=== PATIENT | male | born 1940 | race Caucasian/White ===

== ENCOUNTER 2016-05-23 14:25 | Inpatient (IN) | payer OTHER, MEDICARE ==
[~2016-05-23] VITALS: Ht 182.9 cm; Wt 81.7 kg
[~2016-05-23 14:25] MED LIST: LORT7.5T3 PO; OMEP20CA5 PO; OXYB5TAB33 PO; PRED20 PO; TRAZ150T2 PO
--- NOTE | 2016-05-23 14:49 | PD ---
HPI Chief Complaint: BA/Psych Time Seen by Provider: 14:46 Travel History International Travel<30 days: No Contact w/Intl Traveler<30days: No Traveled to known affect area: No History of Present Illness HPI 75-year-old male brought in by EMS having been found passed out by a local store with reports of excessive EtOH and smoking of marijuana possibly "laced with something". Patient has altered mental status but is alert and responsive in the ambulance home. He is known to be homeless. He has no known drug allergies. [facility] Past Medical History Medical History: Unable to Obtain Arthritis: Yes (RHEMATOID AND OSTEOPHOROSEIS) Cancer: No Diabetes: No Diminished Hearing: Yes ("PLUGGED TODAY") Glaucoma: No Hepatitis: No Hiatal Hernia: Yes Hypertension: Yes Thyroid Disease: No Past Surgical History Genitourinary Surgery: Yes (BILATERAL HERNIA REPAIR) Pacemaker: No Social History Alcohol Use: Yes Tobacco Use: Yes Substance Use: Yes Allergies-Medications (Allergen,Severity, Reaction): Coded Allergies: No Known Allergies (Verified , 06/24/08) Reported Meds & Prescriptions Reported Meds & Active Scripts Active Reported Ditropan (Oxybutynin Chloride) 5 Mg Tab 0 Mg PO DAILY UNKNOWN DOSE Deltasone (Prednisone) 20 Mg Tab 20 Mg PO DAILY Desyrel (Trazodone HCl) 150 Mg Tab 150 Mg PO HS Prilosec (Omeprazole) 20 Mg Capcr 20 Mg PO DAILY Lortab 7.5/500 (Acetaminophen/Hydrocodone Bitart) Tab 1 Tab PO Q6HPRN FOR PAIN Review of Systems ROS Limitations: Clinical Condition, Intoxication, Altered Mental Status General / Constitutional: No: Fever Eyes: No: Visual changes HENT: No: Headaches Cardiovascular: No: Chest Pain or Discomfort Respiratory: No: Shortness of Breath Gastrointestinal: No: Abdominal Pain Genitourinary: No: Dysuria Musculoskeletal: No: Pain Skin: No Rash Neurologic: No: Weakness Psychiatric: No: Depression Endocrine: No: Polydipsia Hematologic/Lymphatic: No: Easy Bruising Physical Exam Exam Limitations: Intoxication Narrative GENERAL: Patient is alert and appears in no acute distress. SKIN: Warm and dry. Normal color. Normal turgor. No signs of trauma or open wounds. HEAD: Atraumatic. Normocephalic. EYES: Pupils equal and round. No scleral icterus. No injection or drainage. ENT: No nasal bleeding or discharge. Mucous membranes pink and moist. Pharynx is clear. NECK: Trachea midline. Neck is supple and nontender. CARDIOVASCULAR: Regular rate and rhythm. No murmurs gallops or rubs appreciated. RESPIRATORY: No accessory muscle use. Clear to auscultation. Breath sounds equal bilaterally. MUSCULOSKELETAL: Extremities without clubbing, cyanosis, or edema. No obvious deformities. NEUROLOGICAL: Awake and alert. No obvious cranial nerve deficits. Motor grossly within normal limits. Five out of 5 muscle strength in the arms and legs. Normal speech. PSYCHIATRIC: Patient is to see intoxicated and impaired. He is cooperative. Data Data Orders Complete Blood Count With Diff (05/23/16 14:41) Comprehensive Metabolic Panel (05/23/16 14:41) Psych Screen (05/23/16 14:41) Drug Screen, Random Urine (05/23/16 14:41) Alcohol (Ethanol) (05/23/16 14:41) [facility] Medical Decision Making Medical Screen Exam Complete: Yes Emergency Medical Condition: Yes Medical Record Reviewed: Yes Differential Diagnosis Gamino act. EtOH intoxication. Polysubstance abuse. Narrative Course Patient is medically stable at time of exam. Psychiatric labs ordered including CBC, CMP, EtOH level, and urine drug screen. Patient is awaiting med bed placement and medical clearance for psychiatric evaluation. Condition: Stable Nacho Gautam May 23, 2016 14:49
[2016-05-23] MEDS ORDERED: PIPERACIL-TAZO 4.5 GM PREMIX 100 ML IV STA (15:31)
[2016-05-23] MEDS ORDERED: VANCOMYCIN INJ 1,000 MG in SODIUM CHLOR 0.9% 250 ML INJ 250 ML IV STA (15:31)
[2016-05-23 15:37] VITALS: TEMP 104.1
[2016-05-23] MEDS ORDERED: SODIUM CHLOR 0.9% 1000 ML INJ 400 ML IV ONE (15:41)
[2016-05-23] MEDS ORDERED: SODIUM CHLOR 0.9% 1000 ML INJ 1,000 ML IV ONE ×2 (15:41)
[2016-05-23 15:49] VITALS: BP 149/69; PULSE 97; RESP 21; TEMP 104.1; O2SAT 95
--- NOTE | 2016-05-23 15:49 | PD ---
HPI Chief Complaint: Altered Mental Status Time Seen by Provider: 15:25 Travel History International Travel<30 days: No Contact w/Intl Traveler<30days: No Traveled to known affect area: No History of Present Illness HPI Patient is a 75-year-old male with history of CAD with Laureen BRODY, who presents the emergency department for altered mental status. provides history. States that patient has become increasingly altered over the course the last 72 hours. notes that he has redness of the bilateral lower extremities around his toes, that become increasingly weepy. Over the last 24 hours patient's become increasingly altered and febrile at home. called EMS and patient refused transport, upon which time patient was Gamino acted. There has not been any report of suicidal ideation, homicidal ideation, delusions or hallucinations. [facility] Past Medical History Medical History: Unable to Obtain Arthritis: Yes (RHEMATOID AND OSTEOPHOROSEIS) Cancer: No Cardiovascular Problems: Yes (RI, AFIB, DEFIBULATOR) Diabetes: No Diminished Hearing: Yes ("PLUGGED TODAY") Glaucoma: No Hepatitis: No Hiatal Hernia: Yes Hypertension: Yes Thyroid Disease: No Past Surgical History Genitourinary Surgery: Yes (BILATERAL HERNIA REPAIR) Pacemaker: No Social History Alcohol Use: Yes Tobacco Use: Yes Substance Use: Yes Allergies-Medications (Allergen,Severity, Reaction): Coded Allergies: No Known Allergies (Verified , 05/23/16) Reported Meds & Prescriptions Reported Meds & Active Scripts Active Reported Ditropan (Oxybutynin Chloride) 5 Mg Tab 0 Mg PO DAILY UNKNOWN DOSE Deltasone (Prednisone) 20 Mg Tab 20 Mg PO DAILY Desyrel (Trazodone HCl) 150 Mg Tab 150 Mg PO HS Prilosec (Omeprazole) 20 Mg Capcr 20 Mg PO DAILY Lortab 7.5/500 (Acetaminophen/Hydrocodone Bitart) Tab 1 Tab PO Q6HPRN FOR PAIN Review of Systems ROS Limitations: Altered Mental Status, Poor Historian Physical Exam Exam Limitations: Altered Mental Status, Poor Historian Narrative GENERAL: Elderly male in no acute distress. Febrile to 104.1 SKIN: Warm. There is erythema of the left lower extremity radiating from the foot to the mid fernandez. Open wound on the medial aspect of the fenrandez. There is skin breakdown in between the toes bilaterally, most prominent on the right foot. HEAD: Atraumatic. Normocephalic. EYES: Pupils equal and round. 3 mm. No scleral icterus. No injection or drainage. ENT: No nasal bleeding or discharge. Mucous membranes dry NECK: Supple without rigidity CARDIOVASCULAR: Regular rate and irregular rhythm. No murmur appreciated. RESPIRATORY: No accessory muscle use. Clear to auscultation. Breath sounds equal bilaterally. GASTROINTESTINAL: Abdomen soft, non-tender, nondistended. Large ventral hernia MUSCULOSKELETAL: Edema of the left leg extending into the fernandez with associated erythema as above. NEUROLOGICAL: Awake and alert to self. Questionable small right nasal labial fold flattening. Right upper extremity weakness compared to left. Normal speech. PSYCHIATRIC: Deferred given altered mental status Data Data Last Documented VS Vital Signs Date Time Temp Pulse Resp B/P Pulse Ox O2 Delivery O2 Flow Rate FiO2 05/23/16 15:49 104.1 97 21 149/69 95 Nasal Cannula 2 Orders Electrocardiogram (05/23/16 15:31) Complete Blood Count With Diff (05/23/16 15:31) Comprehensive Metabolic Panel (05/23/16 15:31) Lactic Acid Sepsis Protocol (05/23/16 15:31) Lipase (05/23/16 15:31) Troponin I (05/23/16 15:31) Urinalysis - C+S If Indicated (05/23/16 15:31) Blood Culture (05/23/16 15:31) Wound Culture And Gram Stain (05/23/16 15:31) Chest, Single Ap (05/23/16 15:31) Ecg Monitoring (05/23/16 15:31) Iv Access Insert/Monitor (05/23/16 15:31) Oximetry (05/23/16 15:31) Piperacil-Tazo 4.5 Gm Premix (Zosyn 4.5 (05/23/16 15:31) Vancomycin Inj (Vancomycin Inj) (05/23/16 15:31) Ct Brain W/O Iv Contrast(Rout) (05/23/16 ) Sodium Chlor 0.9% 1000 Ml Inj (Ns 1000 M (05/23/16 15:41) Sodium Chlor 0.9% 1000 Ml Inj (Ns 1000 M (05/23/16 15:41) Sodium Chlor 0.9% 1000 Ml Inj (Ns 1000 M (05/23/16 15:41) Acetaminophen (Tylenol) (05/23/16 16:00) Consult Vascular Access Team (05/23/16 ) Vascular Poc Ultrasound (05/23/16 ) Labs Laboratory Tests Test 05/23/16 05/23/16 15:41 16:05 Urine Color YELLOW Urine Turbidity CLEAR Urine pH 5.5 Urine Specific [place] 1.024 Urine Protein 30 mg/dL Urine Glucose (UA) NEG mg/dL Urine Ketones 10 mg/dL Urine Occult Blood TRACE Urine Nitrite NEG Urine Bilirubin NEG Urine Urobilinogen LESS THAN 2.0 MG/DL Urine Leukocyte Esterase NEG Urine RBC 2 /hpf Urine WBC 1 /hpf Urine Sperm RARE Microscopic Urinalysis Comment CATH-CULT NOT IND Sodium Level 137 MEQ/L Potassium Level 4.8 MEQ/L Chloride Level 103 MEQ/L Carbon Dioxide Level 22.8 MEQ/L Anion Gap 11 MEQ/L Blood Urea Nitrogen 25 MG/DL Creatinine 1.00 MG/DL Estimat Glomerular Filtration 73 ML/MIN Rate Random Glucose 96 MG/DL Lactic Acid Level 1.6 mmol/L Calcium Level 8.5 MG/DL Aspartate Amino Transf 72 U/L (AST/SGOT) Albumin 2.7 GM/DL Lipase 42 U/L MDM Medical Decision Making Medical Screen Exam Complete: Yes Emergency Medical Condition: Yes Medical Record Reviewed: Yes Differential Diagnosis 75-year-old male here for altered mental status, erythema of the left greater than right lower extremity and fever. Differential includes cellulitis, bacteremia, UTI, pneumonia, sepsis, osteomyelitis, dehydration, elect to light abnormality, CVA, TIA. Narrative Course Patient brought in under a Gamino act, this is inappropriate. Patient is not psychotic. He is altered clearly from delirium from sepsis and this Gamino act was lifted. Patient placed on monitor, IV established and blood obtained. Given 30 mg/kg normal saline bolus, empirically treated with vancomycin and Zosyn and Tylenol. Twelve-lead EKG shows sinus rhythm with interventricular conduction delay but no ST abnormalities. CBC, CMP, lipase, troponin, lactate, urinalysis, wound cultures, blood cultures were obtained as well as chest x-ray and CT of the brain. Results of these studies remain pending at the time this dictation. Patient signed out to oncoming provider waiting results of same for ultimate admission. Critical Care Narrative Aggregate critical care time was 40 minutes. Time to perform other separately billable procedures was not included in the critical care time. My time did not include minutes spent treating any other patients simultaneously or on activities that did not directly contribute to the patient's treatment. The services I provided to this patient were to treat and/or prevent clinically significant deterioration that could result in: Cardiopulmonary decompensation, or disability I provided critical care services requiring my management, as noted below: Chart data review, documentation time, medication orders and management, vital sign assessments/reviewing monitor data, ordering and reviewing lab tests, ordering and interpreting/reviewing x-rays and diagnostic studies, care of the patient and discussion of the patient with the admitting physicians. Diagnosis Primary Impression: Sepsis Qualified Code: A41.9 - Sepsis, due to unspecified organism Additional Impressions: Cellulitis of left leg Fever Qualified Code: R50.9 - Fever, unspecified fever cause Delirium Admitting Information Admitting Physician Requests: Admit Condition: Stable Echo Murray MD May 23, 2016 15:49
[2016-05-23] MEDS ORDERED: ACETAMINOPHEN 500 MG CPLT PO ONE (16:00)
[2016-05-23 16:48] LABS: BLOOD, URINE TRACE (NEG); GLUCOSE,URINE NEG (NEG); KETONE, URINE 10 mg/dL (NEG); NITRITE,URINE NEG (NEG); PH, URINE 5.5 (5.0-8.5); URINE COLOR YELLOW (YELLW/STRAW)
[2016-05-23 16:49] LABS: COMMENT (UR) CATH-CULT NOT IND; CULTURE IF INDICATED CATH CULTURE NOT IND
--- NOTE | 2016-05-23 16:55 | RADRPT ---
EXAM DATE/TIME: 05/23/2016 15:42 [facility] COMPARISON: No previous studies available for comparison. INDICATIONS : Fever. MEDICAL HISTORY : Hypertension. Hiatal hernia. A-fib. SURGICAL HISTORY : Defibulator. ENCOUNTER: Initial ACUITY: 1 day PAIN SCORE: Non-responsive. LOCATION: Bilateral chest FINDINGS: Portable AP view of the chest demonstrates a normal-sized cardiac silhouette. Single lead left chest wall cardiac pacing device/AICD is present. There is interstitial prominence bilaterally of uncertain chronicity. No effusion, consolidation, or pneumothorax is identified. Bones and soft tissues demons trate no acute finding. CONCLUSION: Interstitial prominence bilaterally of uncertain chronicity. Otherwise, no acute finding is identifie d. Hira Denny MD on May 23, 2016 at 16:51 Board Certified Radiologist. This report was verified electronically.
[2016-05-23 16:56] LABS: ANION GAP 11 MEQ/L (5-15); AST (GOT) 72 U/L (15-37); BICARBONATE 22.8 MEQ/L (21.0-32.0); BLOOD UREA NITROGEN 25 MG/DL (7-18); CHLORIDE 103 MEQ/L (98-107); GLOMERULAR FILTRATION RATE 73 ML/MIN (>89); SODIUM (NA) 137 MEQ/L (136-145)
[2016-05-23 16:57] LABS: POTASSIUM 4.8 MEQ/L (3.5-5.1)
[2016-05-23 17:09] LABS: ALKALINE PHOSPHATASE 64 U/L (45-117); ALT (GPT) 22 U/L (12-78); TOTAL BILIRUBIN ADULT 0.5 MG/DL (0.2-1.0)
--- NOTE | 2016-05-23 17:20 | RADRPT ---
EXAM DATE/TIME: 05/23/2016 16:47 [facility] COMPARISON: No previous studies available for comparison. INDICATIONS : Altered mental status. RADIATION DOSE: 44.52 CTDIvol (mGy) MEDICAL HISTORY : Cardiovascular disease. Hypertension. Lupus. SURGICAL HISTORY : None. ENCOUNTER: Initial ACUITY: 1 day PAIN SCALE: Non-responsive LOCATION: cranial TECHNIQUE: Multiple contiguous axial images were obtained of the head. Using automated exposure control and adj ustment of the mA and/or kV according to patient size, radiation dose was kept as low as reasonably a chievable to obtain optimal diagnostic quality images. FINDINGS: CEREBRUM: There is generalized atrophy. Ventricles are normal in size given the degree of atrophy present. Ther e is periventricular white matter low attenuation with a more focal area in the right frontal periven tricular white matter. No evidence of midline shift, mass lesion, hemorrhage or acute infarction. N o extra-axial fluid collections are seen. POSTERIOR FOSSA: The cerebellum and brainstem demonstrate no definite acute finding. There are 3 punctate areas of low density within the cricket. The 4th ventricle is midline. The cerebellopontine angle is unremarkable. EXTRACRANIAL: Visualized paranasal sinuses are clear. There is fluid in the right mastoid air cells and middle ear. SKULL: The calvaria is intact. No evidence of skull fracture. CONCLUSION: 1. No acute intracranial abnormality is identified. There is generalized cerebral atrophy. 2. The periventricular white matter low attenuation and low density in the cricket may represent chronic microvascular ischemic change. 3. There is fluid within the mastoid air cells. Hira Denny MD on May 23, 2016 at 17:16 Board Certified Radiologist. This report was verified electronically.
[2016-05-23 17:47] LABS: AUTOMATED NEUTROPHIL # 16.3 TH/MM3 (1.8-7.7); BASOPHIL # 0.1 TH/MM3 (0-0.2); BASOPHIL % 0.4 % (0.0-2.0); HEMATOCRIT 24.4 % (39.0-51.0); HEMO FLAGS DIFF FINAL; LYMPH % 1.8 % (9.0-44.0); LYMPHOCYTE # 0.3 TH/MM3 (1.0-4.8); MEAN CELL VOLUME 91.7 FL (80.0-100.0); MEAN CORPUSCULAR HEMOGLOBIN 30.4 PG (27.0-34.0); MEAN CORPUSCULAR HGB CONC 33.1 % (32.0-36.0); MONO % 6.4 % (0.0-8.0); NEUT % 91.4 % (16.0-70.0); PLATELET COUNT 249 TH/MM3 (150-450); RED BLOOD COUNT 2.66 MIL/MM3 (4.50-5.90); RED CELL DISTRIBUTION WIDTH 14.4 % (11.6-17.2); WHITE BLOOD COUNT 17.9 TH/MM3 (4.0-11.0)
[2016-05-23] MEDS ORDERED: MORPHINE SULFATE 4 MG/ML INJ IV PUSH ONE (18:00)
--- NOTE | 2016-05-23 18:00 | PD ---
Physical Exam Narrative The patient was initially evaluated by the previous provider and signed out to me at approximately 5:00 PM at the beginning of my shift pending labs, CT head, and disposition. See her note for further details. Data Data Last Documented VS Vital Signs Date Time Temp Pulse Resp B/P Pulse Ox O2 Delivery O2 Flow Rate FiO2 05/23/16 18:20 96 Room Air 05/23/16 15:49 2.00 05/23/16 15:49 104.1 97 21 149/69 Orders Electrocardiogram (05/23/16 15:31) Complete Blood Count With Diff (05/23/16 15:31) Comprehensive Metabolic Panel (05/23/16 15:31) Lactic Acid Sepsis Protocol (05/23/16 15:31) Lipase (05/23/16 15:31) Troponin I (05/23/16 15:31) Urinalysis - C+S If Indicated (05/23/16 15:31) Blood Culture (05/23/16 15:31) Wound Culture And Gram Stain (05/23/16 15:31) Chest, Single Ap (05/23/16 15:31) Ecg Monitoring (05/23/16 15:31) Iv Access Insert/Monitor (05/23/16 15:31) Oximetry (05/23/16 15:31) Piperacil-Tazo 4.5 Gm Premix (Zosyn 4.5 (05/23/16 15:31) Vancomycin Inj (Vancomycin Inj) (05/23/16 15:31) Ct Brain W/O Iv Contrast(Rout) (05/23/16 ) Sodium Chlor 0.9% 1000 Ml Inj (Ns 1000 M (05/23/16 15:41) Sodium Chlor 0.9% 1000 Ml Inj (Ns 1000 M (05/23/16 15:41) Sodium Chlor 0.9% 1000 Ml Inj (Ns 1000 M (05/23/16 15:41) Acetaminophen (Tylenol) (05/23/16 16:00) Consult Vascular Access Team (05/23/16 ) Vascular Poc Ultrasound (05/23/16 ) Morphine Inj (Morphine Inj) (05/23/16 18:00) Type And Screen (05/23/16 18:21) Admit Order (Ed Use Only) (05/23/16 18:21) Labs Laboratory Tests Test 05/23/16 05/23/16 05/23/16 15:41 16:05 17:15 Urine Color YELLOW Urine Turbidity CLEAR Urine pH 5.5 Urine Specific [place] 1.024 Urine Protein 30 mg/dL Urine Glucose (UA) NEG mg/dL Urine Ketones 10 mg/dL Urine Occult Blood TRACE Urine Nitrite NEG Urine Bilirubin NEG Urine Urobilinogen LESS THAN 2.0 MG/DL Urine Leukocyte Esterase NEG Urine RBC 2 /hpf Urine WBC 1 /hpf Urine Sperm RARE Microscopic Urinalysis Comment CATH-CULT NOT IND Sodium Level 137 MEQ/L Potassium Level 4.8 MEQ/L Chloride Level 103 MEQ/L Carbon Dioxide Level 22.8 MEQ/L Anion Gap 11 MEQ/L Blood Urea Nitrogen 25 MG/DL Creatinine 1.00 MG/DL Estimat Glomerular Filtration 73 ML/MIN Rate Random Glucose 96 MG/DL Lactic Acid Level 1.6 mmol/L Calcium Level 8.5 MG/DL Total Bilirubin 0.5 MG/DL Aspartate Amino Transf 72 U/L (AST/SGOT) Alanine Aminotransferase 22 U/L (ALT/SGPT) Alkaline Phosphatase 64 U/L Troponin I 0.05 NG/ML Total Protein 7.4 GM/DL Albumin 2.7 GM/DL Lipase 42 U/L Free Thyroxine 1.26 NG/DL Thyroid Stimulating Hormone 2.040 uIU/ML 3rd Gen White Blood Count 17.9 TH/MM3 Red Blood Count 2.66 MIL/MM3 Hemoglobin 8.1 GM/DL Hematocrit 24.4 % Mean Corpuscular Volume 91.7 FL Mean Corpuscular Hemoglobin 30.4 PG Mean Corpuscular Hemoglobin 33.1 % Concent Red Cell Distribution Width 14.4 % Platelet Count 249 TH/MM3 Mean Platelet Volume 8.2 FL Neutrophils (%) (Auto) 91.4 % Lymphocytes (%) (Auto) 1.8 % Monocytes (%) (Auto) 6.4 % Eosinophils (%) (Auto) 0.0 % Basophils (%) (Auto) 0.4 % Neutrophils # (Auto) 16.3 TH/MM3 Lymphocytes # (Auto) 0.3 TH/MM3 Monocytes # (Auto) 1.1 TH/MM3 Eosinophils # (Auto) 0.0 TH/MM3 Basophils # (Auto) 0.1 TH/MM3 CBC Comment DIFF FINAL Differential Comment Hemoglobin A1c 4.2 % [facility] Supervised Visit with CELINE: No Narrative Course Briefly this is a 75-year-old male with history of CAD, AICD, A. fib, RA, brought in by ambulance from home for evaluation of altered mental status. The patient was febrile and tachycardic upon arrival. Initial provider had a high suspicion for sepsis with the source being his left lower extremity cellulitis, so appropriate labs were ordered, IV fluids given, and the patient was given a dose of vancomycin and Zosyn IV. On my assessment the patient has obvious cellulitis to his left leg with superficial ulceration to his medial and lateral ankle with significant warmth and erythema and mild edema. There is no crepitus. No signs of necrosis. Normal capillary refill in bilateral lower extremities. Initial vital signs show heart rate 97, blood pressure 149/69, pulse ox 95% on 2 L nasal cannula, rectal temp of 104.1F. The patient is awake and alert. CBC is remarkable for WBC 17.9, hemoglobin 8.1, hematocrit 24.4, platelets 249, neutrophils 91.4%. CMP is essentially unremarkable. Lactic acid is 1.6. UA is not suggestive of UTI. Chest x-ray shows interstitial prominence bilaterally of uncertain chronicity, otherwise no acute finding. CT head shows no acute intracranial abnormality. There is generalized cerebral atrophy, periventricular white matter low attenuation and low density in the cricket may represent chronic microvascular ischemic change. There is fluid within the mastoid air cells. The patient and the patient's significant other were made aware of all findings. He will be admitted for further treatment and evaluation of sepsis, cellulitis, anemia. Case discussed with hospitalist Dr. Yu who will admit the patient to his service. Diagnosis Primary Impression: Sepsis Qualified Code: A41.9 - Sepsis, due to unspecified organism Additional Impressions: Fever Qualified Code: R50.9 - Fever, unspecified fever cause Delirium Cellulitis of left leg Anemia Qualified Code: D64.9 - Anemia, unspecified type Admitting Information Admitting Physician Requests: Admit Condition: Stable Bijan Ureña MD May 23, 2016 18:00
[2016-05-23 18:20] VITALS: O2SAT 96
[2016-05-23] MEDS ORDERED: METOCLOPRAMIDE HCL 10 MG/2 ML VIAL IV PUSH PRN (18:30)
[2016-05-23] MEDS ORDERED: BISACODYL 10 MG SUPP PR PRN (18:30)
[2016-05-23] MEDS ORDERED: ACETAMINOPHEN 325 MG TAB PO PRN (18:30)
[2016-05-23] MEDS ORDERED: SODIUM CHLORIDE 0.9% FLUSH 5 ML FLUSH FLUSH PRN (18:30)
[2016-05-23] MEDS ORDERED: NALOXONE HCL 0.4 MG/ML AMP IV PRN (18:30)
[2016-05-23] MEDS ORDERED: ONDANSETRON HCL 4 MG/2 ML VIAL IVP PRN (18:30)
[2016-05-23] MEDS ORDERED: Vancomycin Consult Pharmacy 1 EA OTHER SCH (18:45)
[2016-05-23] MEDS ORDERED: PIPERACIL-TAZO 3.375 GM PREMIX 50 ML IV SCH (18:45)
[2016-05-23] MEDS ORDERED: ACETAMINOPHEN 325MG/HYDROcodone 7.5MG/15ML UDC PO PRN (19:00)
--- NOTE | 2016-05-23 19:10 | HHI.HP ---
[facility] Unknown Admission Diagnosis sepsis, left leg cellulitis, AMS, anemia Diagnoses: Chief Complaint: Bilateral leg cellulitis and Altered mental status. Travel History International Travel<30 Days: No Contact w/Intl Traveler <30 Da: No Traveled to Known Affected Are: No History of Present Illness This is a pleasant 75 y/o male with CAD with AICD placement, Atrial Fibrillation , who came to ER with Altered Mental status, with the patient at this time but he is alert and oriented, during the last 72 hours he is been worsening his condition, his noted that the redness of the bilateral lower extremities around his toes patient refused transport was montero acted, he is been also febrile as we know he has RA, Osteoporosis, CAD status post UT, Atrial Fibrillation, Defibrillator in place, seen in the presence of his Mrs. Von Coyd, will ask for Wound care, ID specialist, follow blood culture continue antibiotics. Review of Systems ROS Limitations: Altered Mental Status Past Family Social History Past Medical History RA and osteoporosis Hiatal Hernia CAD/UT, Atrial Fibrillation status post Defibrillator placement Hypertension Past Surgical History Bilateral Inguinal hernia repair Reported Medications Reported Meds & Active Scripts Active Reported Ditropan (Oxybutynin Chloride) 5 Mg Tab 0 Mg PO DAILY UNKNOWN DOSE Deltasone (Prednisone) 20 Mg Tab 20 Mg PO DAILY Desyrel 150 Mg Tab (Trazodone HCl) 150 Mg Tab 150 Mg PO HS Prilosec 20 mg (Omeprazole) 20 Mg Capcr 20 Mg PO DAILY Lortab 7.5/500 (Acetaminophen/Hydrocodone Bitart) Tab 1 Tab PO Q6HPRN FOR PAIN Allergies: Coded Allergies: No Known Allergies (Verified , 05/23/16) Active Ordered Medications Current Medications Medications (Trade) Dose Ordered Sig/Corey Route Start Time Stop Time Status Last Admin (Ditropan) DAILY PO 05/24/16 09:00 UNV Non-Formulary Medication 1 tab Q6HPRN PO 05/23/16 18:30 UNV Non-Formulary Medication 20 mg DAILY PO 05/24/16 09:00 UNV Non-Formulary Medication 150 mg 150 mg HS PO 05/23/16 21:00 UNV (NS 1000 ml Inj) 1,000 ml @ 100 mls/hr Q10H IV 05/23/16 18:28 UNV (NS Flush) 2 ml UNSCH PRN FLUSH 05/23/16 18:30 UNV (NS Flush) 2 ml BID FLUSH 05/23/16 21:00 UNV (Tylenol) 650 mg Q4H PRN PO 05/23/16 18:30 UNV (Zofran Inj) 4 mg Q6H PRN IVP 05/23/16 18:30 UNV (Reglan Inj) 5 mg Q6H PRN IV PUSH 05/23/16 18:30 UNV (Dulcolax Supp) 10 mg DAILY PRN NV 05/23/16 18:30 UNV (Colace) 100 mg Q12H PO 05/23/16 18:30 UNV (Ambien) 5 mg HS PRN PO 05/23/16 18:30 UNV (Lovenox Inj) 40 mg Q24H SQ 05/23/16 18:30 UNV Naloxone HCl 0.4 mg 0.4 mg UNSCH PRN IV 05/23/16 18:30 UNV Pharmacy Profile Note 0 ml @ 0 mls/hr UNSCH OTHER 05/23/16 18:45 UNV (Zosyn 3.375 Gm Premix) 50 ml @ 100 mls/hr Q6H IV 05/23/16 18:45 UNV Family History Asked and denied Social History recognize to smoke Tobacco, Alcohol abuse and Substance abuse. Physical Exam Vital Signs Vital Signs Date Time Temp Pulse Resp B/P Pulse Ox O2 Delivery O2 Flow Rate FiO2 05/23/16 18:20 96 Room Air 05/23/16 15:49 104.1 97 21 149/69 95 Nasal Cannula 2 05/23/16 15:37 104.1 Physical Exam GENERAL: Elderly male in no acute distress. Febrile to 104.1 SKIN: Warm. There is erythema of the left lower extremity radiating from the foot to the mid fernandez. Open wound on the medial aspect of the fernandez. There is skin breakdown in between the toes bilaterally, most prominent on the right foot. generalized Ecchymosis. specially both arms and both legs. HEAD: Atraumatic. Normocephalic. EYES: Pupils equal and round. 3 mm. No scleral icterus. No injection or drainage. ENT: No nasal bleeding or discharge. Mucous membranes dry NECK: Supple without rigidity CARDIOVASCULAR: Regular rate and irregular rhythm. No murmur appreciated. RESPIRATORY: No accessory muscle use. Clear to auscultation. Breath sounds equal bilaterally. GASTROINTESTINAL: Abdomen soft, non-tender, nondistended. Large ventral hernia MUSCULOSKELETAL: Edema of the left leg extending into the fernandez with associated erythema as above. NEUROLOGICAL: Awake and alert to self. Questionable small right nasal labial fold flattening. Right upper extremity weakness compared to left. Normal speech. PSYCHIATRIC: Deferred given altered mental status Laboratory Laboratory Tests Test 05/23/16 05/23/16 05/23/16 15:41 16:05 17:15 Urine Color YELLOW Urine Turbidity CLEAR Urine pH 5.5 Urine Specific [place] 1.024 Urine Protein 30 Urine Glucose (UA) NEG Urine Ketones 10 Urine Occult Blood TRACE Urine Nitrite NEG Urine Bilirubin NEG Urine Urobilinogen LESS THAN 2.0 Urine Leukocyte Esterase NEG Urine RBC 2 Urine WBC 1 Urine Sperm RARE Microscopic Urinalysis Comment CATH-CULT NOT IND Sodium Level 137 Potassium Level 4.8 Chloride Level 103 Carbon Dioxide Level 22.8 Anion Gap 11 Blood Urea Nitrogen 25 Creatinine 1.00 Estimat Glomerular Filtration 73 Rate Random Glucose 96 Lactic Acid Level 1.6 Calcium Level 8.5 Total Bilirubin 0.5 Aspartate Amino Transf 72 (AST/SGOT) Alanine Aminotransferase 22 (ALT/SGPT) Alkaline Phosphatase 64 Troponin I 0.05 Total Protein 7.4 Albumin 2.7 Lipase 42 White Blood Count 17.9 Red Blood Count 2.66 Hemoglobin 8.1 Hematocrit 24.4 Mean Corpuscular Volume 91.7 Mean Corpuscular Hemoglobin 30.4 Mean Corpuscular Hemoglobin 33.1 Concent Red Cell Distribution Width 14.4 Platelet Count 249 Mean Platelet Volume 8.2 Neutrophils (%) (Auto) 91.4 Lymphocytes (%) (Auto) 1.8 Monocytes (%) (Auto) 6.4 Eosinophils (%) (Auto) 0.0 Basophils (%) (Auto) 0.4 Neutrophils # (Auto) 16.3 Lymphocytes # (Auto) 0.3 Monocytes # (Auto) 1.1 Eosinophils # (Auto) 0.0 Basophils # (Auto) 0.1 CBC Comment DIFF FINAL Differential Comment Date/Time Procedure Status Source Growth 05/23/16 17:20 Aerobic Blood Culture Received Blood Peripheral Pending 05/23/16 17:20 Anaerobic Blood Culture Received Blood Peripheral Pending 05/23/16 15:41 Gram Stain - Final Resulted Wound Foot 05/23/16 15:41 Wound Culture Resulted Wound Foot Pending Result Diagram: 05/23/16 1715 05/23/16 1605 Imaging Last Impressions Chest X-Ray 05/23/16 1531 Signed Impressions: Service Date/Time: Monday, May 23, 2016 15:42 - CONCLUSION: Interstitial prominence bilaterally of uncertain chronicity. Otherwise, no acute finding is identified. Hira Denny MD Head CT 05/23/16 0000 Signed Impressions: Service Date/Time: Monday, May 23, 2016 16:47 - CONCLUSION: 1. No acute intracranial abnormality is identified. There is generalized cerebral atrophy. 2. The periventricular white matter low attenuation and low density in the cricket may represent chronic microvascular ischemic change. 3. There is fluid within the mastoid air cells. Hira Denny MD Septic Shock Reassessment Heart: Regular rate and rhythm Lungs: Clear Assessment and Plan Assessment and Plan 1. Acute Toxic Metabolic Encephalopathy secondary to Sepsis and cellulitis 2. Bilateral Leg Cellulitis continue Vancomycin and Zosyn, wound care, ID specialist 3. Sepsis he is febrile, tachycardia, Leukocytosis. follow blood culture continue antibiotics 4. Atrial Fibrillation status post AICD 5. CAD by history 6. Osteoporosis DVT prophylaxis with Lovenox Code Status Full Code Discussed Condition With patient, his Mrs. Von Cody and Emergency medicine physician. Physician Certification 2 Midnight Certification Type: Admission for Inpatient Services Order for Inpatient Services The services are ordered in accordance with Medicare regulations or non- Medicare payer requirements, as applicable. In the case of services not specified as inpatient-only, they are appropriately provided as inpatient services in accordance with the 2-midnight benchmark. Estimated LOS (days): 4 days is the estimated time the patient will need to remain in the hospital, assuming treatment plan goals are met and no additional complications. Post-Hospital Plan: Home Health Mario Yu MD May 23, 2016 19:10
[2016-05-23] MEDS ORDERED: CARB200T PO (19:23)
[2016-05-23] MEDS ORDERED: LORA-373 PO (19:23)
[2016-05-23] MEDS ORDERED: MIRA33504 PO (19:23)
[2016-05-23] MEDS ORDERED: TRAZ100T4 PO (19:23)
[2016-05-23] MEDS ORDERED: PLAQ200T PO (19:23)
[2016-05-23] MEDS ORDERED: ALEN1TAB48 PO (19:23)
[2016-05-23] MEDS ORDERED: AMIO200T PO (19:23)
[2016-05-23] MEDS ORDERED: PRED5TAB PO (19:23)
[2016-05-23] MEDS ORDERED: HYDR-3535 PO (19:23)
[2016-05-23] MEDS ORDERED: SERO100T PO (19:23)
[2016-05-23] MEDS ORDERED: MOBI7.5T PO (19:23)
[2016-05-23] MEDS ORDERED: POTA-243 PO (19:23)
[2016-05-23] MEDS ORDERED: PANT40TA3 PO (19:23)
[2016-05-23] MEDS ORDERED: TYLETAB34 PO (19:23)
[2016-05-23] MEDS ORDERED: MORP1TAB24 PO (19:23)
[2016-05-23] MEDS ORDERED: PILL SPLITTER OTHER PRN (19:30)
[2016-05-23] MEDS: ENOXAPARIN SODIUM 40 MG/0.4 ML SYRINGE SQ SCH (20:00)
[2016-05-23] MEDS: SODIUM CHLOR 0.9% 1000 ML INJ 1,000 ML IV SCH (20:08)
[2016-05-23 20:09] VITALS: BP 124/59; PULSE 95; RESP 18; TEMP 100.8; O2SAT 96
[2016-05-23] MEDS: DOCUSATE SODIUM 100 MG CAP PO SCH (20:09)
[2016-05-23] MEDS: SODIUM CHLORIDE 0.9% FLUSH 5 ML FLUSH FLUSH SCH (20:09)
[2016-05-23] MEDS: ZOLPIDEM TARTRATE 5 MG TAB PO PRN (20:24)
[2016-05-23] MEDS: traZODone HCL 100 MG TAB PO SCH (20:24)
[2016-05-23] MEDS ORDERED: VANCOMYCIN INJ 1,250 MG in SODIUM CHLOR 0.9% 250 ML INJ 250 ML IV SCH (21:00)
[2016-05-23] MEDS ORDERED: OXYB5TAB10 PO (21:59)
[2016-05-23 22:21] LABS: FREE T4 1.26 NG/DL (0.76-1.46)
[2016-05-23] MEDS: PIPERACIL-TAZO 3.375 GM PREMIX 50 ML IV SCH (22:24)
[2016-05-23 22:33] LABS: HEMOGLOBIN A1a 2.2 %; HEMOGLOBIN A1b 1.1 %; HEMOGLOBIN Ao 86.5 %; HEMOGLOBIN LA1C 1.9 %; HEMOGLOBIN P3 4.9 %
[2016-05-23 23:50] VITALS: BP 112/65; PULSE 78; RESP 16; TEMP 98.8; O2SAT 96
[2016-05-24] MEDS: SODIUM CHLOR 0.9% 1000 ML INJ 1,000 ML IV SCH ×2 (04:38→22:49)
[2016-05-24 04:46] LABS: AUTOMATED NEUTROPHIL # 10.4 TH/MM3 (1.8-7.7); BASOPHIL # 0.1 TH/MM3 (0-0.2); BASOPHIL % 0.4 % (0.0-2.0); EOSINOPHIL % 0.1 % (0.0-4.0); HEMATOCRIT 23.9 % (39.0-51.0); HEMO FLAGS DIFF FINAL; LYMPH % 4.3 % (9.0-44.0); LYMPHOCYTE # 0.5 TH/MM3 (1.0-4.8); MEAN CELL VOLUME 95.2 FL (80.0-100.0); MEAN CORPUSCULAR HGB CONC 31.5 % (32.0-36.0); MONO % 8.2 % (0.0-8.0); PLATELET COUNT 171 TH/MM3 (150-450); RED BLOOD COUNT 2.51 MIL/MM3 (4.50-5.90); RED CELL DISTRIBUTION WIDTH 14.7 % (11.6-17.2)
[2016-05-24 04:52] LABS: INTERNATIONAL NORMALIZED RATIO 1.1 RATIO; PROTHROMBIN TIME - PATIENT 12.5 SEC (9.8-11.6)
[2016-05-24 04:57] LABS: BICARBONATE 19.8 MEQ/L (21.0-32.0); HDL CHOLESTEROL 33.2 MG/DL (40.0-60.0); INDIRECT BILIRUBIN 0.2 MG/DL (0.0-0.8); POTASSIUM 3.4 MEQ/L (3.5-5.1); TOTAL BILIRUBIN ADULT 0.3 MG/DL (0.2-1.0)
[2016-05-24] MEDS ORDERED: VANCOMYCIN INJ 1,250 MG in SODIUM CHLOR 0.9% 250 ML INJ 250 ML IV SCH (05:00)
[2016-05-24] MEDS: PIPERACIL-TAZO 3.375 GM PREMIX 50 ML IV SCH ×4 (05:03→23:37)
[2016-05-24 05:07] VITALS: BP 135/63; PULSE 87; RESP 20; TEMP 98.6; O2SAT 96
[2016-05-24] MEDS: ACETAMINOPHEN 325MG/HYDROcodone 7.5MG/15ML UDC PO PRN ×4 (05:49→23:38)
[2016-05-24] MEDS: DOCUSATE SODIUM 100 MG CAP PO SCH ×2 (06:25→17:54)
[2016-05-24] MEDS: SODIUM CHLORIDE 0.9% FLUSH 5 ML FLUSH FLUSH SCH ×2 (09:00→22:15)
[2016-05-24] MEDS: OXYBUTYNIN CHLORIDE 5 MG TAB PO SCH (09:43)
[2016-05-24] MEDS: PANTOPRAZOLE SOD 20 MG DELAYED RELEASE TAB PO SCH (09:43)
[2016-05-24 11:50] VITALS: BP 112/56; PULSE 84; RESP 18; TEMP 97.6; O2SAT 100
[2016-05-24] MEDS ORDERED: ASPI81CH CHEW (14:08)
[2016-05-24] MEDS ORDERED: METO50TA PO (14:12)
[2016-05-24] MEDS ORDERED: DOCU250C PO (14:13)
[2016-05-24] MEDS ORDERED: OMEP20TA PO (14:14)
[2016-05-24] MEDS ORDERED: HYDR-3583 PO (14:15)
[2016-05-24] MEDS: ceFAZolin 2 GM PREMIX 50 ML IV SCH ×2 (14:45→22:51)
--- NOTE | 2016-05-24 15:33 | EKG ---
Date Performed: 05/23/2016 Time Performed: 15:54:27 PTAGE: 75 years EKG: Sinus rhythm POSSIBLE LEFT ATRIAL ENLARGEMENT INDETERMINATE AXIS NONSPECIFIC INTRAVENTRICULAR CONDUCTION DELAY VICTORIANO RDERLINE ECG PREVIOUS TRACING : 04/05/2004 11.40 image not available for comparison. DOCTOR: Kevin Bear Interpretating Date/Time 05/24/2016 15:33:03
[2016-05-24 16:05] VITALS: BP 112/55; PULSE 79; RESP 18; TEMP 98; O2SAT 99
--- NOTE | 2016-05-24 16:56 | HHI.PR ---
Subjective Remarks This is a pleasant 75 y/o male with CAD with AICD placement, Atrial Fibrillation , who came to ER with Altered Mental status, with the patient at this time but he is alert and oriented, during the last 72 hours he is been worsening his condition, his noted that the redness of the bilateral lower extremities around his toes patient refused transport was montero acted, he is been also febrile. as we know he has RA, Osteoporosis CAD, Status post RI, Atrial Fibrillation, Defibrillator in place, his Mrs. Von Cody with him seen by ID specialist switch to Cefepime and continued Zosyn. No Nausea, vomit or diarrhea. Objective Vital Signs Date Time Temp Pulse Resp B/P Pulse Ox O2 Delivery O2 Flow Rate FiO2 05/24/16 16:05 98.0 79 18 112/55 99 05/24/16 11:50 97.6 84 18 112/56 100 05/24/16 05:07 98.6 87 20 135/63 96 05/23/16 23:50 98.8 78 16 112/65 96 Room Air 05/23/16 20:09 100.8 95 18 124/59 96 Room Air 05/23/16 18:20 96 Room Air Result Diagram: 05/24/16 0401 05/24/16 0401 Imaging Last Impressions Chest X-Ray 05/23/16 1531 Signed Impressions: Service Date/Time: Monday, May 23, 2016 15:42 - CONCLUSION: Interstitial prominence bilaterally of uncertain chronicity. Otherwise, no acute finding is identified. Hira Denny MD Head CT 05/23/16 0000 Signed Impressions: Service Date/Time: Monday, May 23, 2016 16:47 - CONCLUSION: 1. No acute intracranial abnormality is identified. There is generalized cerebral atrophy. 2. The periventricular white matter low attenuation and low density in the cricket may represent chronic microvascular ischemic change. 3. There is fluid within the mastoid air cells. Hira Denny MD Procedures No procedures performed to the patient. Other Results Laboratory Tests Test 05/23/16 05/23/16 05/23/16 05/23/16 15:41 16:05 17:15 18:30 Urine Color YELLOW Urine Turbidity CLEAR Urine pH 5.5 Urine Specific [place] 1.024 Urine Protein 30 mg/dL Urine Glucose (UA) NEG mg/dL Urine Ketones 10 mg/dL Urine Occult Blood TRACE Urine Nitrite NEG Urine Bilirubin NEG Urine Urobilinogen LESS THAN 2.0 MG/DL Urine Leukocyte Esterase NEG Urine RBC 2 /hpf Urine WBC 1 /hpf Urine Sperm RARE Microscopic Urinalysis Comment CATH-CULT NOT IND Lactic Acid Level 1.6 mmol/L Troponin I 0.05 NG/ML Lipase 42 U/L Free Thyroxine 1.26 NG/DL Thyroid Stimulating Hormone 2.040 uIU/ML 3rd Gen Hemoglobin A1c 4.2 % Blood Type O POSITIVE Antibody Screen NEGATIVE Blood Bank Comment Test 05/24/16 04:01 White Blood Count 12.0 TH/MM3 Red Blood Count 2.51 MIL/MM3 Hemoglobin 7.5 GM/DL Hematocrit 23.9 % Mean Corpuscular Volume 95.2 FL Mean Corpuscular Hemoglobin 30.0 PG Mean Corpuscular Hemoglobin 31.5 % Concent Red Cell Distribution Width 14.7 % Platelet Count 171 TH/MM3 Mean Platelet Volume 8.7 FL Neutrophils (%) (Auto) 87.0 % Lymphocytes (%) (Auto) 4.3 % Monocytes (%) (Auto) 8.2 % Eosinophils (%) (Auto) 0.1 % Basophils (%) (Auto) 0.4 % Neutrophils # (Auto) 10.4 TH/MM3 Lymphocytes # (Auto) 0.5 TH/MM3 Monocytes # (Auto) 1.0 TH/MM3 Eosinophils # (Auto) 0.0 TH/MM3 Basophils # (Auto) 0.1 TH/MM3 CBC Comment DIFF FINAL Differential Comment Prothrombin Time 12.5 SEC Prothromb Time International 1.1 RATIO Ratio Sodium Level 140 MEQ/L Potassium Level 3.4 MEQ/L Chloride Level 110 MEQ/L Carbon Dioxide Level 19.8 MEQ/L Anion Gap 10 MEQ/L Blood Urea Nitrogen 22 MG/DL Creatinine 0.78 MG/DL Estimat Glomerular Filtration 97 ML/MIN Rate Random Glucose 79 MG/DL Calcium Level 7.6 MG/DL Total Bilirubin 0.3 MG/DL Direct Bilirubin 0.1 MG/DL Indirect Bilirubin 0.2 MG/DL Aspartate Amino Transf 24 U/L (AST/SGOT) Alanine Aminotransferase 14 U/L (ALT/SGPT) Alkaline Phosphatase 49 U/L Total Protein 5.9 GM/DL Albumin 2.2 GM/DL Triglycerides Level 75 MG/DL Cholesterol Level 98 MG/DL LDL Cholesterol 50 MG/DL HDL Cholesterol 33.2 MG/DL Cholesterol/HDL Ratio 2.95 RATIO Objective Remarks GENERAL: No acute distress. SKIN: Warm. bilateral feet with ulcers, erythema. HEAD: Atraumatic. Normocephalic. EYES: Pupils equal and round. 3 mm. No scleral icterus. No injection or drainage. ENT: No nasal bleeding or discharge. Mucous membranes dry NECK: Supple without rigidity CARDIOVASCULAR: Regular rate and irregular rhythm. No murmur appreciated. RESPIRATORY: Decreased breath sounds no wheezing or crackles. GASTROINTESTINAL: Abdomen soft, non-tender, nondistended. Large ventral hernia MUSCULOSKELETAL: Edema of the left leg extending, bilateral hand and feet deformities, secondary to OA. NEUROLOGICAL: Awake and alert to self. PSYCHIATRIC: Cooperative. Medications and IVs Current Medications Medications (Trade) Dose Ordered Sig/Corey Route Start Time Stop Time Status Last Admin (Ditropan) 5 mg DAILY PO 05/24/16 09:00 05/24/16 09:43 (Protonix) 20 mg DAILY PO 05/24/16 09:00 05/24/16 09:43 Trazodone HCl 150 mg 150 mg HS PO 05/23/16 21:00 05/23/16 20:24 (NS 1000 ml Inj) 1,000 ml @ 100 mls/hr Q10H IV 05/23/16 18:28 05/24/16 04:38 (NS Flush) 2 ml UNSCH PRN FLUSH 05/23/16 18:30 (NS Flush) 2 ml BID FLUSH 05/23/16 21:00 (Tylenol) 650 mg Q4H PRN PO 05/23/16 18:30 (Zofran Inj) 4 mg Q6H PRN IVP 05/23/16 18:30 05/23/16 20:04 (Reglan Inj) 5 mg Q6H PRN IV PUSH 05/23/16 18:30 05/23/16 20:03 (Dulcolax Supp) 10 mg DAILY PRN MD 05/23/16 18:30 (Colace) 100 mg Q12H PO 05/23/16 18:30 05/24/16 06:25 (Ambien) 5 mg HS PRN PO 05/23/16 18:30 05/23/16 20:24 (Lovenox Inj) 40 mg Q24H SQ 05/23/16 19:00 3/6/17 20:00 (Narcan Inj) 0.4 mg UNSCH PRN IV 05/23/16 18:30 Miscellaneous 1 ea 1 ea UNSCH PRN OTHER 05/23/16 19:30 (Zosyn 3.375 Gm Premix) 50 ml @ 100 mls/hr Q6H IV 05/23/16 23:00 05/24/16 10:53 Acetaminophen/ Hydrocodone Bitart 15 ml 15 ml Q6H PRN PO 05/24/16 06:00 05/24/16 10:54 (Ancef 2 Gm Premix) 50 ml @ 100 mls/hr Q8H IV 05/24/16 14:00 05/24/16 14:45 A/P Assessment and Plan 1. Acute Toxic Metabolic Encephalopathy secondary to Sepsis and cellulitis, Improved. 2. Bilateral Leg Cellulitis seen by ID specialist Doctor Jakob and recommended to Discontinue Vancomycin and start Cefazolin and continue Zosyn. blood cultures negative but Wound culture positive for Proteus Mirabilis pansensitive. 3. Sepsis he is febrile, tachycardia, Leukocytosis. follow blood culture continue antibiotics Improving. 4. Atrial Fibrillation status post AICD not on anticoagulation. 5. CAD by history 6. Osteoporosis DVT prophylaxis with Lovenox Discussed with patient and his in the room. Code Status Full Code Discharge Planning Not yet clear to discharge. Mario Suarez MD May 24, 2016 16:56
[2016-05-24] MEDS: ENOXAPARIN SODIUM 40 MG/0.4 ML SYRINGE SQ SCH (18:48)
--- NOTE | 2016-05-24 19:45 | RADRPT ---
EXAM DATE/TIME: 05/24/2016 19:23 [facility] COMPARISON: No previous studies available for comparison. INDICATIONS : Left foot pain. Cellulitis. MEDICAL HISTORY : Arthritis. SURGICAL HISTORY : None. ENCOUNTER: Initial ACUITY: 3 days PAIN SCORE: 10/10 LOCATION: Left foot. FINDINGS: Severe valgus deformities are seen of the first through fourth metatarsophalangeal joints. There is a severe varus deformity of the fifth metatarsal phalangeal joint. Pes planus/arch collapse noted. Mil d to moderate degenerative changes are seen of the talonavicular, navicular/cuneiform and calcaneocub oid joints. There are severe degenerative changes of the first metatarsophalangeal joint and sesamoid s. Small heel spur. No acute bone destruction seen. Vascular calcifications are noted. CONCLUSION: Chronic findings as above. No fracture or acute bone destruction seen. Hira Davila MD on May 24, 2016 at 19:42 Board Certified Radiologist. This report was verified electronically.
--- NOTE | 2016-05-24 19:47 | RADRPT ---
EXAM DATE/TIME: 05/24/2016 19:16 [facility] COMPARISON: No previous studies available for comparison. INDICATIONS : Right foot pain. Cellulitis. MEDICAL HISTORY : Arthritis. SURGICAL HISTORY : None. ENCOUNTER: Initial ACUITY: 3 days PAIN SCORE: 10/10 LOCATION: Right foot. FINDINGS: Bones of the right foot are diffusely osteopenic. No fracture or acute bony destruction seen. There is pes planus/arch collapse, probably chronic. Mild to moderate degenerative changes are seen i n the subtalar, talonavicular, calcaneocuboid, navicular/cuneiform and Lisfranc joints. There is mild hallux valgus. More moderate valgus deformity with hammertoes seen of the second throug h fourth metatarsophalangeal joint. Severe hammertoe and a varus deformity seen of the fifth metatars ophalangeal joint. Tiny heel spur. Vascular calcifications are demonstrated. CONCLUSION: Osteopenia, pes planus and other chronic findings as above. No fracture or acute bone destruction see n. Hira Davila MD on May 24, 2016 at 19:44 Board Certified Radiologist. This report was verified electronically.
[2016-05-24 20:02] VITALS: BP 124/58; PULSE 81; RESP 18; TEMP 97.8; O2SAT 97
--- NOTE | 2016-05-24 21:18 | PD.CONS ---
History of Present Illness Service Podiatry Consult Requested By ED Reason for Consult Bilateral leg/foot infection/wounds Primary Care Physician Unknown Diagnoses: History of Present Illness Patient came in to ED with altered mental status and infection to R and L foot with red streaking up to L groin from foot/ankle area. He has had wounds on the R foot and L ankle and relates some type of vascular intervention to his R leg about 6 months ago. Past Family Social History Allergies: Coded Allergies: MRI PRECAUTION (Unverified Allergy, Unknown, DEFIRILLATOR, 05/24/16) [facility] #[id number], SERIAL # [id number] Past Medical History RA and osteoporosis Hiatal Hernia CAD/AL, Atrial Fibrillation status post Defibrillator placement Hypertension Past Surgical History Bilateral Inguinal hernia repair Active Ordered Medications Current Medications Medications (Trade) Dose Ordered Sig/Corey Route Start Time Stop Time Status Last Admin (Ditropan) 5 mg DAILY PO 05/24/16 09:00 05/24/16 09:43 (Protonix) 20 mg DAILY PO 05/24/16 09:00 05/24/16 09:43 Trazodone HCl 150 mg 150 mg HS PO 05/23/16 21:00 05/23/16 20:24 (NS 1000 ml Inj) 1,000 ml @ 100 mls/hr Q10H IV 05/23/16 18:28 05/24/16 04:38 (NS Flush) 2 ml UNSCH PRN FLUSH 05/23/16 18:30 (NS Flush) 2 ml BID FLUSH 05/23/16 21:00 (Tylenol) 650 mg Q4H PRN PO 05/23/16 18:30 (Zofran Inj) 4 mg Q6H PRN IVP 05/23/16 18:30 05/23/16 20:04 (Reglan Inj) 5 mg Q6H PRN IV PUSH 05/23/16 18:30 05/23/16 20:03 (Dulcolax Supp) 10 mg DAILY PRN MD 05/23/16 18:30 (Colace) 100 mg Q12H PO 05/23/16 18:30 05/24/16 06:25 (Ambien) 5 mg HS PRN PO 05/23/16 18:30 05/23/16 20:24 (Lovenox Inj) 40 mg Q24H SQ 05/23/16 19:00 05/24/16 18:48 (Narcan Inj) 0.4 mg UNSCH PRN IV 05/23/16 18:30 Miscellaneous 1 ea 1 ea UNSCH PRN OTHER 05/23/16 19:30 (Zosyn 3.375 Gm Premix) 50 ml @ 100 mls/hr Q6H IV 05/23/16 23:00 05/24/16 17:39 Acetaminophen/ Hydrocodone Bitart 15 ml 15 ml Q6H PRN PO 05/24/16 06:00 05/24/16 17:39 (Ancef 2 Gm Premix) 50 ml @ 100 mls/hr Q8H IV 05/24/16 14:00 05/24/16 14:45 Family History Denies Social History Denies Physical Exam Vital Signs Vital Signs Date Time Temp Pulse Resp B/P Pulse Ox O2 Delivery O2 Flow Rate FiO2 05/24/16 20:02 97.8 81 18 124/58 97 05/24/16 16:05 98.0 79 18 112/55 99 05/24/16 11:50 97.6 84 18 112/56 100 05/24/16 05:07 98.6 87 20 135/63 96 05/23/16 23:50 98.8 78 16 112/65 96 Room Air Physical Exam Bilateral dorsal contracture of 5th digit at MTP joint. There is weepy open lesion to R 4th webspace with surrounding erythema and edema. No purulence noted. Very painful to palpation. L medial ankle has large ulceration with serous drainage and erythema streaking from this area up the L leg to groin. There is an ulceration with necrotic eschar noted to dorsal L 4th distal digit. Also very painful to examination. Skin appears atrophic, thin. No hair growth. Laboratory Laboratory Tests Test 05/24/16 04:01 White Blood Count 12.0 Red Blood Count 2.51 Hemoglobin 7.5 Hematocrit 23.9 Mean Corpuscular Volume 95.2 Mean Corpuscular Hemoglobin 30.0 Mean Corpuscular Hemoglobin 31.5 Concent Red Cell Distribution Width 14.7 Platelet Count 171 Mean Platelet Volume 8.7 Neutrophils (%) (Auto) 87.0 Lymphocytes (%) (Auto) 4.3 Monocytes (%) (Auto) 8.2 Eosinophils (%) (Auto) 0.1 Basophils (%) (Auto) 0.4 Neutrophils # (Auto) 10.4 Lymphocytes # (Auto) 0.5 Monocytes # (Auto) 1.0 Eosinophils # (Auto) 0.0 Basophils # (Auto) 0.1 CBC Comment DIFF FINAL Differential Comment Prothrombin Time 12.5 Prothromb Time International 1.1 Ratio Sodium Level 140 Potassium Level 3.4 Chloride Level 110 Carbon Dioxide Level 19.8 Anion Gap 10 Blood Urea Nitrogen 22 Creatinine 0.78 Estimat Glomerular Filtration 97 Rate Random Glucose 79 Calcium Level 7.6 Total Bilirubin 0.3 Direct Bilirubin 0.1 Indirect Bilirubin 0.2 Aspartate Amino Transf 24 (AST/SGOT) Alanine Aminotransferase 14 (ALT/SGPT) Alkaline Phosphatase 49 Total Protein 5.9 Albumin 2.2 Triglycerides Level 75 Cholesterol Level 98 LDL Cholesterol 50 HDL Cholesterol 33.2 Cholesterol/HDL Ratio 2.95 Date/Time Procedure Status Source Growth 05/23/16 17:20 Aerobic Blood Culture - Preliminary Resulted Blood Peripheral NO GROWTH IN 1 DAY 05/23/16 17:20 Anaerobic Blood Culture - Preliminary Resulted Blood Peripheral NO GROWTH IN 1 DAY 05/23/16 15:41 Gram Stain - Final Resulted Wound Foot 05/23/16 15:41 Wound Culture - Preliminary Resulted Gram Negative Rex Group A Beta Strep Result Diagram: 05/24/16 0401 05/24/16 0401 Imaging Last Impressions Foot X-Ray 05/24/16 0000 Signed Impressions: Service Date/Time: Tuesday, May 24, 2016 19:16 - CONCLUSION: Osteopenia, pes planus and other chronic findings as above. No fracture or acute bone destruction seen. Hira Davila MD Chest X-Ray 05/23/16 1531 Signed Impressions: Service Date/Time: Monday, May 23, 2016 15:42 - CONCLUSION: Interstitial prominence bilaterally of uncertain chronicity. Otherwise, no acute finding is identified. Hira Denny MD Head CT 05/23/16 0000 Signed Impressions: Service Date/Time: Monday, May 23, 2016 16:47 - CONCLUSION: 1. No acute intracranial abnormality is identified. There is generalized cerebral atrophy. 2. The periventricular white matter low attenuation and low density in the cricket may represent chronic microvascular ischemic change. 3. There is fluid within the mastoid air cells. Hira Denny MD Assessment and Plan Assessment and Plan Cellulitis with ulcers, R foot, L foot/ankle Continue IV antibiotics Ordered vascular consultation and evaluation Ordered MRI and unable to be performed. Revised order for CT with and without contrast, if possible, to further evaluate infection. Will determine treatment plan based on results of scans and per recommendations from vascular. Stewart Vidal DPM May 24, 2016 21:18
--- NOTE | 2016-05-24 21:30 | PD.CAR.PN ---
CVT Progress Note Subjective/Hospital Course: Patient seen Consult dictated CTA with runoff pending Thanks J Objective: Vital Signs Date Time Temp Pulse Resp B/P Pulse Ox O2 Delivery O2 Flow Rate FiO2 05/24/16 20:02 97.8 81 18 124/58 97 05/24/16 16:05 98.0 79 18 112/55 99 05/24/16 11:50 97.6 84 18 112/56 100 05/24/16 05:07 98.6 87 20 135/63 96 05/23/16 23:50 98.8 78 16 112/65 96 Room Air Result Diagram: 05/24/16 0401 05/24/16 0401 Geraldine Moraes MD May 24, 2016 21:30
[2016-05-24] MEDS: traZODone HCL 100 MG TAB PO SCH (22:50)
--- NOTE | 2016-05-24 23:13 | MB ---
cc: GERALDINE BARNETT MD DATE OF CONSULTATION REASON FOR CONSULTATION Ischemia of the both legs, cellulitis, infection of the left leg, coronary artery disease, atrial fibrillation HISTORY OF PRESENT ILLNESS This 75-year-old gentleman who is very ill presented to emergency room with a three-day history of redness and swelling of the left leg. The patient and his have noted that there was an ulcer on the medial aspect of the left ankle which burst and then the whole foot got red and this spread up toward the knee. Hence, the consultation. PAST MEDICAL HISTORY 1. Coronary artery disease, 2. Prior myocardial infarction, 3. Chronic atrial fibrillation, 4. Sinus bradycardia, 5. Sick sinus syndrome and defibrillator placement, 6. Hypertension, 7. Osteoporosis PAST SURGICAL HISTORY 1. Bilateral inguinal hernia repair 2. About six months ago right stent to distal in situ vein bypass in [place]. SOCIAL HISTORY The patient does not smoke or drink. He is a of [place]. 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 MEDICATIONS Multiple and can be found in the record. PHYSICAL EXAMINATION GENERAL: A pleasant 75-year-old male appearing older than his actual age. HEENT: Normocephalic. No trauma to the head. Pupils equally reactive. Extraocular muscles intact. The patient appears to be gaunt, weak and emaciated with functional decline. NECK: Bilateral carotid pulses. Faint left-sided bruit. CHEST: Bilateral decreased breath sounds. Severe pulmonary cachexia with moderate to severe COPD. HEART: Irregular rhythm. The patient is in slow atrial fibrillation. ABDOMEN: Soft, patulous, active bowel sounds. EXTREMITIES: The patient has palpable femoral pulses and dopplerable popliteal on the left, none on the right and then dopplerable posterior tibial bilateral and very weak dorsalis pedis bilateral. The patient has a well-healed scar on the right leg from in situ vein bypass which is clearly patent. On the left side, the patient has cellulitis extending from just below the knee down to the foot with pes valgus of the left foot, swelling and open excoriated area at medial ankle where clearly infection is coming from. The patient has degenerative changes of both sets of toes with some old wounds distally. NEUROLOGIC: Exam is complex. The patient moves all four extremities. IMPRESSION/RECOMMENDATIONS This gentleman has severe peripheral vascular disease, right side has been attended apparently in [place] with fem to distal bypass which is patent and nicely healed. On the left side on the other hand, the patient has cellulitis and while he does have distal pulses by Doppler he clearly has ischemia of the leg. This gentleman at this point is not a candidate for any major surgery until the infection is under control. Patients will receive intravenous antibiotics and we are going to order CTA with runoff to see the vasculature and then will go from there. In the best case scenario, the patient might be candidate from some sort of endovascular procedure to improve the chances of healing this ulcer on the medial aspect of the left ankle. However, having said all this everything is contingent upon controlling the infection first. Critical care time 40 minutes. I thank you much for referral. I will continue to follow patient which you. Geraldine HALL/ /9:13 PM /10:55 PM
[2016-05-25] VITALS (9 sets, daily range): BP systolic 116–135; BP diastolic 55–94; PULSE 84–120; RESP 18–20; TEMP 97.6–98.4; O2SAT 96–99
[2016-05-25] MEDS: SODIUM CHLOR 0.9% 1000 ML INJ 1,000 ML IV SCH ×3 (00:28→22:10)
[2016-05-25] MEDS: ceFAZolin 2 GM PREMIX 50 ML IV SCH ×3 (04:26→22:11)
[2016-05-25] MEDS: PIPERACIL-TAZO 3.375 GM PREMIX 50 ML IV SCH ×2 (05:05→11:22)
[2016-05-25] MEDS: ACETAMINOPHEN 325MG/HYDROcodone 7.5MG/15ML UDC PO PRN ×3 (05:35→17:37)
[2016-05-25] MEDS: DOCUSATE SODIUM 100 MG CAP PO SCH ×2 (05:47→17:37)
[2016-05-25] MEDS ORDERED: POTASSIUM CHLORIDE 20 MEQ CONTROLLED RELEASE TAB PO ONE (07:45)
[2016-05-25] MEDS: SODIUM CHLORIDE 0.9% FLUSH 5 ML FLUSH FLUSH SCH ×2 (09:00→22:10)
[2016-05-25] MEDS: PANTOPRAZOLE SOD 20 MG DELAYED RELEASE TAB PO SCH (09:05)
[2016-05-25] MEDS: OXYBUTYNIN CHLORIDE 5 MG TAB PO SCH (09:05)
[2016-05-25] MEDS ORDERED: IOHEXOL 350 MG/ML 10 ML VIAL (for RAD DIAG) IV ONE (10:53)
--- NOTE | 2016-05-25 11:07 | RADRPT ---
EXAM DATE/TIME: 05/25/2016 10:22 [facility] COMPARISON: FOOT LEFT COMPLETE ([id number]), May 24, 2016, 19:23. INDICATIONS : Pain and ulcer left foot IV CONTRAST: 100 cc Omnipaque 350 (iohexol) IV RADIATION DOSE: CTDIvol (mGy) ; Reconstructed from previous dataset MEDICAL HISTORY : Cardiovascular disease. Hypertension. Carcinoma, bladder. SURGICAL HISTORY : None. ENCOUNTER: Initial ACUITY: 1 day PAIN SCALE: 7/10 LOCATION: Left foot TECHNIQUE: Volumetric scanning of the foot was performed. Using automated exposure control and adjustment of th e mA and/or kV according to patient size, radiation dose was kept as low as reasonably achievable to obtain optimal diagnostic quality images. FINDINGS: Severe valgus deformities are seen of the first through fourth metatarsophalangeal joints. There is a severe varus deformity of the fifth metatarsal phalangeal joint. There is pes planus and arch collap se.. Mild to moderate degenerative changes are seen of the talonavicular, navicular/cuneiform and titus caneocuboid joints. There are severe degenerative changes of the first metatarsophalangeal joint and sesamoids. Sesamoids are subluxed laterally. Subcutaneous tissues of the left foot are diffusely edematous. Nothing organized or drainable seen. N o acute bone destruction is demonstrated of the left foot. Small heel spur. Diffuse vascular calcifications are noted. CONCLUSION: 1. Diffuse subcutaneous edema of the left foot without abscess or acute bone destruction seen. 2. Multifocal chronic arthropathy and chronic-appearing malalignment as above. Does the patient have a history or rheumatoid? 3. Vascular calcifications. 4. CT left ankle to follow. Hira Davila MD on May 25, 2016 at 11:01 Board Certified Radiologist. This report was verified electronically.
--- NOTE | 2016-05-25 11:34 | RADRPT ---
EXAM DATE/TIME: 05/25/2016 10:22 [facility] COMPARISON: No previous studies available for comparison. INDICATIONS : Pain and ulcer left foot IV CONTRAST: 100 cc Omnipaque 350 (iohexol) IV RADIATION DOSE: CTDIvol (mGy) ; Reconstructed from previous dataset MEDICAL HISTORY : Hypertension. Cardiovascular disease Carcinoma, bladder. SURGICAL HISTORY : None. ENCOUNTER: Initial ACUITY: 1 day PAIN SCALE: 7/10 LOCATION: Left foot TECHNIQUE: Volumetric scanning of the ankle was performed. Using automated exposure control and adjustment of t he mA and/or kV according to patient size, radiation dose was kept as low as reasonably achievable to obtain optimal diagnostic quality images. FINDINGS: Subcutaneous tissues are diffusely edematous. On these noncontrast images I don't see anything organi zed or drainable. There is a focal ulcer of the soft tissues overlying the lateral malleolus. The omaira p margin of the ulcer is about 1 mm away from the lateral cortex of the distal fibula, for example co kenna reconstruction image 41. However, no perceptible cortical destruction. I also don't see definit e periosteal reaction or changes within the medullary space. No other ulcers are demonstrated. Mild ankle and subtalar osteoarthritis noted. Incidentally see n type I accessory navicular. Patient has chronic appearing arch collapse across the navicular/cuneif orm joints. Tibialis posterior tendon appears intact. Vascular calcifications are noted. CONCLUSION: 1. Diffuse subcutaneous edema without abscess. 2. Focal ulcer overlying the lateral malleolus and coming within 1 mm of the lateral cortical surface of the distal fibula. No perceptible bone changes to substantiate osteomyelitis, however. Hira Davila MD on May 25, 2016 at 11:28 Board Certified Radiologist. This report was verified electronically.
--- NOTE | 2016-05-25 11:45 | RADRPT ---
EXAM DATE/TIME: 05/25/2016 10:22 [facility] COMPARISON: FOOT RIGHT COMPLETE ([id number]), May 24, 2016, 19:16. INDICATIONS : Right foot pain IV CONTRAST: 100 cc Omnipaque 350 (iohexol) IV RADIATION DOSE: CTDIvol (mGy) ; Reconstructed from previous dataset MEDICAL HISTORY : Cardiovascular disease. Hypertension. Carcinoma, bladder. SURGICAL HISTORY : None. ENCOUNTER: Initial ACUITY: 2 days PAIN SCALE: 7/10 LOCATION: Right foot TECHNIQUE: Volumetric scanning of the foot was performed. Using automated exposure control and adjustment of th e mA and/or kV according to patient size, radiation dose was kept as low as reasonably achievable to obtain optimal diagnostic quality images. FINDINGS: Bones of the right foot are diffusely osteopenic. No acute bone destruction demonstrated. Chronic sha llow tunnellike tracks are seen of the plantar aspect of the calcaneus and the plantar aspect of the medial cuneiform, could be degenerative or related to prior surgery. There is a type I accessory madeline cular. Distal tibialis posterior tendon appears mildly thickened. Just above the ankle, the tendon ap pears considerably thinned but probably not completely torn. Mild tibiotalar and fibulotalar degenerative changes are noted. Chronic appearing cysts are seen with in the medullary space of the distal fibula. There is pes planus/arch collapse, probably chronic. Mild to moderate degenerative changes are seen i n the subtalar, talonavicular, calcaneocuboid, navicular/cuneiform and Lisfranc joints. There is mild hallux valgus. More moderate valgus deformity with hammertoes seen of the second throug h fourth metatarsophalangeal joint. Severe hammertoe and a varus deformity seen of the fifth metatars ophalangeal joint. Tiny heel spur. Subcutaneous tissues of the right foot are mildly, diffusely edematous. I don't see an organized or d rainable fluid collection. No perceptible ulcer. Vascular calcifications are demonstrated. CONCLUSION: 1. Diffuse subcutaneous edema. No abscess or convincing evidence of osteomyelitis. 2. Multifocal chronic arthropathy and chronic-appearing malalignment as above. There is mild arch col lapse. Probably at least mild distal and insertional tendinosis of tibialis posterior tendon. The vis ualized portions of the tendon in the lower leg appear at least moderately attenuated. 3. Chronic appearing cystic changes within the distal fibula, most likely degenerative in etiology. 4. Shallow tunnellike tracks plantar aspects of the calcaneus and medial cuneiform, potentially degen erative or postoperative. 5. Diffuse vascular calcifications. Hira Davila MD on May 25, 2016 at 11:32 Board Certified Radiologist. This report was verified electronically.
--- NOTE | 2016-05-25 12:54 | HHI.PR ---
Subjective Remarks This is a pleasant 75 y/o male with CAD with AICD placement, Atrial Fibrillation , who came to ER with Altered Mental status, with the patient at this time but he is alert and oriented, during the last 72 hours he is been worsening his condition, his noted that the redness of the bilateral lower extremities around his toes patient refused transport was montero acted, he is been also febrile. as we know he has RA, Osteoporosis CAD, Status post MD, Atrial Fibrillation, Defibrillator in place, his Mrs. Von Cody with him seen by ID specialist switch to Cefepime and continued Zosyn. No Nausea, vomit or diarrhea. Patient stable no complaint. discussed with nurse the patient has some PVCs. Objective Vital Signs Date Time Temp Pulse Resp B/P Pulse Ox O2 Delivery O2 Flow Rate FiO2 05/25/16 08:10 98.4 88 20 116/73 96 05/25/16 07:59 98 21 05/25/16 06:06 97.6 90 18 126/57 97 05/25/16 00:08 98.0 84 18 117/55 98 05/24/16 20:02 97.8 81 18 124/58 97 05/24/16 16:05 98.0 79 18 112/55 99 Result Diagram: 05/24/16 0401 05/24/16 0401 Imaging Last Impressions Lower Extremity CT 05/25/16 0000 Signed Impressions: Service Date/Time: Wednesday, May 25, 2016 10:22 - CONCLUSION: 1. Diffuse subcutaneous edema. No abscess or convincing evidence of osteomyelitis. 2. Multifocal chronic arthropathy and chronic-appearing malalignment as above. There is mild arch collapse. Probably at least mild distal and insertional tendinosis of tibialis posterior tendon. The visualized portions of the tendon in the lower leg appear at least moderately attenuated. 3. Chronic appearing cystic changes within the distal fibula, most likely degenerative in etiology. 4. Shallow tunnellike tracks plantar aspects of the calcaneus and medial cuneiform, potentially degenerative or postoperative. 5. Diffuse vascular calcifications. Hira Davila MD Foot X-Ray 05/24/16 0000 Signed Impressions: Service Date/Time: Tuesday, May 24, 2016 19:16 - CONCLUSION: Osteopenia, pes planus and other chronic findings as above. No fracture or acute bone destruction seen. Hira Davila MD Chest X-Ray 05/23/16 1531 Signed Impressions: Service Date/Time: Monday, May 23, 2016 15:42 - CONCLUSION: Interstitial prominence bilaterally of uncertain chronicity. Otherwise, no acute finding is identified. Hira Denny MD Head CT 05/23/16 0000 Signed Impressions: Service Date/Time: Monday, May 23, 2016 16:47 - CONCLUSION: 1. No acute intracranial abnormality is identified. There is generalized cerebral atrophy. 2. The periventricular white matter low attenuation and low density in the cricket may represent chronic microvascular ischemic change. 3. There is fluid within the mastoid air cells. Hira Denny MD Procedures No procedures performed to the patient. Other Results Laboratory Tests Test 05/23/16 05/23/16 05/23/16 05/23/16 15:41 16:05 17:15 18:30 Urine Color YELLOW Urine Turbidity CLEAR Urine pH 5.5 Urine Specific [place] 1.024 Urine Protein 30 mg/dL Urine Glucose (UA) NEG mg/dL Urine Ketones 10 mg/dL Urine Occult Blood TRACE Urine Nitrite NEG Urine Bilirubin NEG Urine Urobilinogen LESS THAN 2.0 MG/DL Urine Leukocyte Esterase NEG Urine RBC 2 /hpf Urine WBC 1 /hpf Urine Sperm RARE Microscopic Urinalysis Comment CATH-CULT NOT IND Lactic Acid Level 1.6 mmol/L Troponin I 0.05 NG/ML Lipase 42 U/L Free Thyroxine 1.26 NG/DL Thyroid Stimulating Hormone 2.040 uIU/ML 3rd Gen Hemoglobin A1c 4.2 % Blood Type O POSITIVE Antibody Screen NEGATIVE Blood Bank Comment Test 05/24/16 04:01 White Blood Count 12.0 TH/MM3 Red Blood Count 2.51 MIL/MM3 Hemoglobin 7.5 GM/DL Hematocrit 23.9 % Mean Corpuscular Volume 95.2 FL Mean Corpuscular Hemoglobin 30.0 PG Mean Corpuscular Hemoglobin 31.5 % Concent Red Cell Distribution Width 14.7 % Platelet Count 171 TH/MM3 Mean Platelet Volume 8.7 FL Neutrophils (%) (Auto) 87.0 % Lymphocytes (%) (Auto) 4.3 % Monocytes (%) (Auto) 8.2 % Eosinophils (%) (Auto) 0.1 % Basophils (%) (Auto) 0.4 % Neutrophils # (Auto) 10.4 TH/MM3 Lymphocytes # (Auto) 0.5 TH/MM3 Monocytes # (Auto) 1.0 TH/MM3 Eosinophils # (Auto) 0.0 TH/MM3 Basophils # (Auto) 0.1 TH/MM3 CBC Comment DIFF FINAL Differential Comment Prothrombin Time 12.5 SEC Prothromb Time International 1.1 RATIO Ratio Sodium Level 140 MEQ/L Potassium Level 3.4 MEQ/L Chloride Level 110 MEQ/L Carbon Dioxide Level 19.8 MEQ/L Anion Gap 10 MEQ/L Blood Urea Nitrogen 22 MG/DL Creatinine 0.78 MG/DL Estimat Glomerular Filtration 97 ML/MIN Rate Random Glucose 79 MG/DL Calcium Level 7.6 MG/DL Total Bilirubin 0.3 MG/DL Direct Bilirubin 0.1 MG/DL Indirect Bilirubin 0.2 MG/DL Aspartate Amino Transf 24 U/L (AST/SGOT) Alanine Aminotransferase 14 U/L (ALT/SGPT) Alkaline Phosphatase 49 U/L Total Protein 5.9 GM/DL Albumin 2.2 GM/DL Triglycerides Level 75 MG/DL Cholesterol Level 98 MG/DL LDL Cholesterol 50 MG/DL HDL Cholesterol 33.2 MG/DL Cholesterol/HDL Ratio 2.95 RATIO Objective Remarks GENERAL: No acute distress. SKIN: Warm. bilateral feet with ulcers, erythema. HEAD: Atraumatic. Normocephalic. EYES: Pupils equal and round. 3 mm. No scleral icterus. No injection or drainage. ENT: No nasal bleeding or discharge. Mucous membranes dry NECK: Supple without rigidity CARDIOVASCULAR: Regular rate and irregular rhythm. No murmur appreciated. RESPIRATORY: Decreased breath sounds no wheezing or crackles. GASTROINTESTINAL: Abdomen soft, non-tender, nondistended. Large ventral hernia MUSCULOSKELETAL: Edema of the left leg extending, bilateral hand and feet deformities, secondary to OA. NEUROLOGICAL: Awake and alert to self. PSYCHIATRIC: Cooperative. Medications and IVs Current Medications Medications (Trade) Dose Ordered Sig/Corey Route Start Time Stop Time Status Last Admin (Ditropan) 5 mg DAILY PO 05/24/16 09:00 05/25/16 09:05 (Protonix) 20 mg DAILY PO 05/24/16 09:00 05/25/16 09:05 Trazodone HCl 150 mg 150 mg HS PO 05/23/16 21:00 05/24/16 22:50 (NS 1000 ml Inj) 1,000 ml @ 100 mls/hr Q10H IV 05/23/16 18:28 05/25/16 09:06 (NS Flush) 2 ml UNSCH PRN FLUSH 05/23/16 18:30 (NS Flush) 2 ml BID FLUSH 05/23/16 21:00 (Tylenol) 650 mg Q4H PRN PO 05/23/16 18:30 (Zofran Inj) 4 mg Q6H PRN IVP 05/23/16 18:30 05/23/16 20:04 (Reglan Inj) 5 mg Q6H PRN IV PUSH 05/23/16 18:30 05/23/16 20:03 (Dulcolax Supp) 10 mg DAILY PRN UT 05/23/16 18:30 (Colace) 100 mg Q12H PO 05/23/16 18:30 05/24/16 06:25 (Ambien) 5 mg HS PRN PO 05/23/16 18:30 05/23/16 20:24 (Lovenox Inj) 40 mg Q24H SQ 05/23/16 19:00 05/24/16 18:48 (Narcan Inj) 0.4 mg UNSCH PRN IV 05/23/16 18:30 Miscellaneous 1 ea 1 ea UNSCH PRN OTHER 05/23/16 19:30 (Zosyn 3.375 Gm Premix) 50 ml @ 100 mls/hr Q6H IV 05/23/16 23:00 05/25/16 11:22 Acetaminophen/ Hydrocodone Bitart 15 ml 15 ml Q6H PRN PO 05/24/16 06:00 05/25/16 11:22 (Ancef 2 Gm Premix) 50 ml @ 100 mls/hr Q8H IV 05/24/16 14:00 05/25/16 04:26 A/P Assessment and Plan 1. Acute Toxic Metabolic Encephalopathy secondary to Sepsis and cellulitis, Improved. 2. Bilateral Leg Cellulitis on Cefazolin and Zosyn, blood cultures negative, and wound culture positive for Proteus Mirabilis pansensitive, as per Podiatry specialist recommended to continue IV antibiotics, Ordered Vascular surgery consult, and MRI did not found Osteomyelitis, seen by Vascular specialist, he has Severe PAD, asked for CTA with runoff. 3. Sepsis afebrile, tachycardia, Leukocytosis. follow blood culture continue antibiotics Improving. continue Cefazolin and Zosyn. 4. Atrial Fibrillation status post AICD not on anticoagulation. 5. CAD by history 6. Osteoporosis DVT prophylaxis with Lovenox Discussed with patient and his in the room. Code Status Full Code Discharge Planning Not yet clear to discharge. Mario Suarez MD May 25, 2016 12:54
--- NOTE | 2016-05-25 13:26 | PD.CONS ---
History of Present Illness Service Patient seen May 24, 2016 Delayed entry Infectious Disease Consult Requested By Dr. Yu Reason for Consult Evaluate patient with cellulitis Primary Care Physician Unknown Diagnoses: History of Present Illness Patient seen and examined. Records reviewed. Patient is a 75-year-old male with history of severe rheumatoid arthritis, presented to the hospital for further evaluation of confusion, swelling and redness on his left lower extremity. Patient has been having problem with ulcers in both feet over the last several months. He has been seen by his primary care physician, and has been given 2 courses of antibiotics. Recently he started developing problems again with redness, and it progressively worsened that the area of redness had gone up to his left leg and the groin area. There's been some fever or chills. He denies any sore throat, nausea vomiting, or any urinary complaints. His initial white count on presentation was 17,000, and is down to 12,000. Patient has been febrile up to 104. According to the , the patient's mental status is back to baseline. Infectious disease consultation requested to evaluate the patient. Review of Systems Constitutional: COMPLAINS OF: Fever, Chills Eyes: DENIES: Eye inflammation, Eye pain Ears, nose, mouth, throat: DENIES: Nasal discharge, Oral lesions, Throat pain, Ear Pain, Sinus Pain, Odynophagia Respiratory: DENIES: Cough, Shortness of breath Cardiovascular: DENIES: Chest pain, Palpitations Gastrointestinal: DENIES: Abdominal pain, Diarrhea, Nausea, Vomiting, Difficulty Swallowing Genitourinary: DENIES: Urgency, Dysuria Musculoskeletal: COMPLAINS OF: Joint pain Integumentary: DENIES: Rash Neurologic: DENIES: Headache Psychiatric: COMPLAINS OF: Confusion Past Family Social History Allergies: Coded Allergies: MRI PRECAUTION (Unverified Allergy, Unknown, DEFIRILLATOR, 05/24/16) [facility] #[id number], SERIAL # [id number] Past Medical History RA Osteoporosis Hiatal Hernia CAD/NM Atrial Fibrillation, has pacer Hypertension PVD Past Surgical History Hernia repair Previous ventral hernia repair Revascularization surgery on his RLE Active Ordered Medications Tylenol Hycet Dulcolax Colace Lovenox Reglan Zofran Ditropan Protonix Zosyn Vancomycin Desyrel Ambien Social History There is smoking history There is alcohol use No illicit drug use Physical Exam Vital Signs Vital Signs Date Time Temp Pulse Resp B/P Pulse Ox O2 Delivery O2 Flow Rate FiO2 05/25/16 12:41 98.1 95 20 130/68 98 05/25/16 08:10 98.4 88 20 116/73 96 05/25/16 07:59 98 21 05/25/16 06:06 97.6 90 18 126/57 97 05/25/16 00:08 98.0 84 18 117/55 98 05/24/16 20:02 97.8 81 18 124/58 97 05/24/16 16:05 98.0 79 18 112/55 99 Physical Exam GENERAL: This is a thin, well-developed male, awake and alert, looks chronically ill-appearing, in no apparent distress. SKIN: Warm and dry. No generalized rash or ecchymosis. HEAD: Atraumatic. Normocephalic. No temporal or scalp tenderness. EYES: [place] conjunctivae, no petechia or hemorrhage. Pupils equal round and reactive. Extraocular motions intact. No scleral icterus. No injection or drainage. ENT: Nose without bleeding, or purulent drainage. Moist oral mucosa. Throat without erythema, or exudate. Uvula midline. Airway patent. NECK: Trachea midline. No JVD or lymphadenopathy. Supple, nontender, no meningeal signs. CARDIOVASCULAR: Regular rate and rhythm without murmurs, gallops, or rubs. RESPIRATORY: Clear to auscultation. Breath sounds equal bilaterally. No wheezes , rales, or rhonchi. GASTROINTESTINAL: Abdomen soft, non-tender, nondistended. Bowel sounds are present. There is a incisional hernia. No hepato-splenomegaly, or palpable masses. No guarding. MUSCULOSKELETAL: He has deformities of all his toes and his fingers. No calf tenderness. RLE: There is a draining wound between 5th and 4th toes, with dried crusted blood. There is erythema on dorsum of his foot more laterally. LLE: Looks bigger than RLE, there is erythema from his L fooit all the way to his leg, with lymphangitis on hismedial thigh. There are wounds on his toes with eschar, and there is an unroofed bulla medial L ankle. No odor. on Extremities without clubbing, cyanosis, or edema. No joint tenderness, effusion , or edema noted. No calf tenderness. Negative Homans sign bilaterally. NEUROLOGICAL: Awake and alert. Cranial nerves II through XII intact. Motor and sensory grossly within normal limits. Five out of 5 muscle strength in all muscle groups. Normal speech. PSYCH: Calm and cooperative LINE: PIV with no evidence of infection Laboratory Date/Time Procedure Status Source Growth 05/23/16 17:20 Aerobic Blood Culture - Preliminary Resulted Blood Peripheral NO GROWTH IN 2 DAYS 05/23/16 17:20 Anaerobic Blood Culture - Preliminary Resulted Blood Peripheral NO GROWTH IN 2 DAYS 05/23/16 15:41 Gram Stain - Final Complete Wound Foot 05/23/16 15:41 Wound Culture - Final Complete Proteus Mirabilis Group A Beta Strep Result Diagram: 05/24/16 0401 05/24/16 0401 Imaging RADIOLOGY STUDIES/FILMS REVIEWED Last 48 hours Impressions Lower Extremity CT 05/25/16 0000 Signed Impressions: Service Date/Time: Wednesday, May 25, 2016 10:22 - CONCLUSION: 1. Diffuse subcutaneous edema. No abscess or convincing evidence of osteomyelitis. 2. Multifocal chronic arthropathy and chronic-appearing malalignment as above. There is mild arch collapse. Probably at least mild distal and insertional tendinosis of tibialis posterior tendon. The visualized portions of the tendon in the lower leg appear at least moderately attenuated. 3. Chronic appearing cystic changes within the distal fibula, most likely degenerative in etiology. 4. Shallow tunnellike tracks plantar aspects of the calcaneus and medial cuneiform, potentially degenerative or postoperative. 5. Diffuse vascular calcifications. Hira Davila MD Lower Extremity CT 05/25/16 0000 Signed Impressions: Service Date/Time: Wednesday, May 25, 2016 10:22 - CONCLUSION: 1. Diffuse subcutaneous edema of the left foot without abscess or acute bone destruction seen. 2. Multifocal chronic arthropathy and chronic-appearing malalignment as above. Does the patient have a history or rheumatoid? 3. Vascular calcifications. 4. CT left ankle to follow. Hira Davila MD Lower Extremity CT 05/25/16 0000 Signed Impressions: Service Date/Time: Wednesday, May 25, 2016 10:22 - CONCLUSION: 1. Diffuse subcutaneous edema without abscess. 2. Focal ulcer overlying the lateral malleolus and coming within 1 mm of the lateral cortical surface of the distal fibula. No perceptible bone changes to substantiate osteomyelitis, however. Hira Davila MD Foot X-Ray 05/24/16 0000 Signed Impressions: Service Date/Time: Tuesday, May 24, 2016 19:16 - CONCLUSION: Osteopenia, pes planus and other chronic findings as above. No fracture or acute bone destruction seen. Hira Davila MD Foot X-Ray 05/24/16 0000 Signed Impressions: Service Date/Time: Tuesday, May 24, 2016 19:23 - CONCLUSION: Chronic findings as above. No fracture or acute bone destruction seen. Hira Davila MD Chest X-Ray 05/23/16 1531 Signed Impressions: Service Date/Time: Monday, May 23, 2016 15:42 - CONCLUSION: Interstitial prominence bilaterally of uncertain chronicity. Otherwise, no acute finding is identified. Hira Denny MD Assessment and Plan Assessment and Plan IMPRESSION Sepsis due to BLE cellulitis, LLE more severe than RLE Has obdulia feet ulcers, prob ischemic ulcers - C/S GAS and GNR Cellulitis R foot Cellulitis LLE with lymphangitis Severe RA RECOMMENDATION Change Vanco to Ancef Continue Zosyn Follow C/S Monitor temps Podiatry consult Wound care Monitor progress I will follow along with you Thank you for this consultation Discussed Condition With Discussed plan with patient and Rachel Robert MD May 25, 2016 13:26
--- NOTE | 2016-05-25 14:35 | RADRPT ---
EXAM DATE/TIME: 05/25/2016 10:22 [facility] COMPARISON: No previous studies available for comparison. INDICATIONS : Ischemic left leg, peripheral vascular disease. IV CONTRAST: 100 cc Omnipaque 350 (iohexol) IV ; Cumulative dose for multiple exams. RADIATION DOSE: 10.74 CTDIvol (mGy) ; Combined studies MEDICAL HISTORY : Cardiovascular disease. Hypertension. Carcinoma, bladder.Lupus SURGICAL HISTORY : None. ENCOUNTER: Initial ACUITY: 1 day PAIN SCALE: 7/10 LOCATION: Bilateral feet TECHNIQUE: Volumetric scanning was performed using a multi-row detector CT scanner. The data was post processed with a variety of visualization algorithms including full volume maximum intensity projection, multi -planar sliding thin slab reformation, curved planar reformation, and surface rendering techniques. Using automated exposure control and adjustment of the mA and/or kV according to patient size, radiat ion dose was kept as low as reasonably achievable to obtain optimal diagnostic quality images. FINDINGS: The visualized portion of the liver and spleen are normal. The gallbladder and pancreas are unremarka ble. No intrahepatic or extrahepatic ductal dilatation is seen. The adrenal glands are unremarkable. The kidneys are normal bilaterally without evidence of mass or hydronephrosis. There are simple cysts on the right the largest measuring 15 mm with the right kidney ectopically positioned and rotated in the coronal plane a wide midline hernia is present containing loops of colon and small bowel without incarceration. The prostate gland is moderately enlarged impinging on the bladder base. There is obdulia ateral inguinal hernia repair. Examination demonstrates an infrarenal abdominal aortic aneurysm measuring 4.1 x 3.9 CM. The celiac a rtery origin is patent. There is 50-60% stenosis at the origin of the superior mesenteric artery. The re is 50-60% stenosis at the origin of the left renal artery. The right renal artery origin is patent . Examination of the right lower extremity demonstrates no evidence of inflow stenosis. The common femo ral artery is patent. There is diffuse atherosclerotic plaquing of the right femoral artery but no ev idence of segmental occlusion. There is potential short segment high-grade stenosis involving the fem oral artery the level of the adductor canal. The popliteal artery is patent. Severe infrapopliteal di sease is present with dense calcification. Examination of the left lower extremity demonstrates no evidence of inflow stenosis. The common femor al artery is patent. There is extensive superficial femoral artery disease with potential short segme nt high-grade stenosis at the level of the adductor canal. The popliteal artery is patent. There is s evere popliteal disease CONCLUSION: 1. Severe bilateral infrapopliteal disease with no definite straight line runoff. There is potential short segment focal stenoses of significance involving the superficial femoral arteries bilaterally w ithout segmental occlusion. 2. 4.1 cm infrarenal abdominal aortic aneurysm 3. Ectopic position of the right kidney. 4. Non-incarcerated abdominal wall hernia in the midline Juan Leal MD on May 25, 2016 at 14:12 Board Certified Radiologist. This report was verified electronically.
--- NOTE | 2016-05-25 16:46 | PD.CAR.PN ---
CVT Progress Note Subjective/Hospital Course: Patient seen Consult dictated CTA with runoff pending Thanks Yanira 05/25/16 I reviewed the CTA with runoff Patient has pretty good inflow with massive calcifications throughout the vasculature and the stenosis off the superficial femoral arteries bilaterally distally. These on themselves would be hemodynamically significant if it weren't for the runoff beyond popliteal artery While popliteal artery is patent once we get into trifurcation all 3 vessels a severely diseased and the bits and pieces of each with massive calcifications and going down to the feet Based on this the flow-limiting lesion is essentially small vessel disease from trifurcation down and there is no way to improve this by open or endovascular means While patient has no appreciable acute ischemic changes on the right side, on the left side he does have as above noted a open defect overlying the medial malleolus This is rather close to the bone and tissue between the ulcer is paperthin so either the cellulitis inflammation will resolve and defect will seal over and form a scab or less likely but possibly patient will get deeper infection and osteomyelitis With this type of blood supply and in his physical condition if he gets osteomyelitis of the medial malleolus patient will end up with amputation Therefore completely agree with antibiotic therapy but I believe there is no surgical or endovascular therapy that could assist or help this patient, but rather risk-benefit ratio goes to water risk and we could make things way worse Will continue to follow patient Objective: Vital Signs Date Time Temp Pulse Resp B/P Pulse Ox O2 Delivery O2 Flow Rate FiO2 05/25/16 16:18 98.0 101 20 135/94 99 05/25/16 12:41 98.1 95 20 130/68 98 05/25/16 08:10 98.4 88 20 116/73 96 05/25/16 08:00 105 05/25/16 07:59 98 21 05/25/16 06:06 97.6 90 18 126/57 97 05/25/16 00:08 98.0 84 18 117/55 98 05/24/16 20:02 97.8 81 18 124/58 97 Result Diagram: 05/24/1640005/24/16400 Geraldine Moraes MD May 25, 2016 16:46
--- NOTE | 2016-05-25 17:02 | HHI.IDPN ---
Subjective Subjective Remarks Notes reviewed No further fever Feels so-so Problem with venous access Vascular surgery evaluating patient Wound C/S GAS and Proteus BC negative Antibiotics Zosyn Ancef Lines PIV Past Medical History RA Osteoporosis Hiatal Hernia CAD/VA Atrial Fibrillation, has pacer Hypertension PVD Past Surgical History Hernia repair Previous ventral hernia repair Revascularization surgery on his RLE Allergies: Coded Allergies: MRI PRECAUTION (Unverified Allergy, Unknown, DEFIRILLATOR, 05/24/16) [facility] #[id number], SERIAL # [id number] Objective . Vital Signs Date Time Temp Pulse Resp B/P Pulse Ox O2 Delivery O2 Flow Rate FiO2 05/25/16 16:18 98.0 101 20 135/94 99 05/25/16 12:41 98.1 95 20 130/68 98 05/25/16 08:10 98.4 88 20 116/73 96 05/25/16 08:00 105 05/25/16 07:59 98 21 05/25/16 06:06 97.6 90 18 126/57 97 05/25/16 00:08 98.0 84 18 117/55 98 05/24/16 20:02 97.8 81 18 124/58 97 . Laboratory Tests Test 05/23/16 05/24/16 17:15 04:01 White Blood Count 17.9 TH/MM3 12.0 TH/MM3 Red Blood Count 2.66 MIL/MM3 2.51 MIL/MM3 Hemoglobin 8.1 GM/DL 7.5 GM/DL Hematocrit 24.4 % 23.9 % Mean Corpuscular Volume 91.7 FL 95.2 FL Mean Corpuscular Hemoglobin 30.4 PG 30.0 PG Mean Corpuscular Hemoglobin 33.1 % 31.5 % Concent Red Cell Distribution Width 14.4 % 14.7 % Platelet Count 249 TH/MM3 171 TH/MM3 Mean Platelet Volume 8.2 FL 8.7 FL Neutrophils (%) (Auto) 91.4 % 87.0 % Lymphocytes (%) (Auto) 1.8 % 4.3 % Monocytes (%) (Auto) 6.4 % 8.2 % Eosinophils (%) (Auto) 0.0 % 0.1 % Basophils (%) (Auto) 0.4 % 0.4 % Neutrophils # (Auto) 16.3 TH/MM3 10.4 TH/MM3 Lymphocytes # (Auto) 0.3 TH/MM3 0.5 TH/MM3 Monocytes # (Auto) 1.1 TH/MM3 1.0 TH/MM3 Eosinophils # (Auto) 0.0 TH/MM3 0.0 TH/MM3 Basophils # (Auto) 0.1 TH/MM3 0.1 TH/MM3 CBC Comment DIFF FINAL DIFF FINAL Differential Comment Laboratory Tests Test 05/23/16 05/24/16 17:15 04:01 Hemoglobin A1c 4.2 % Sodium Level 140 MEQ/L Potassium Level 3.4 MEQ/L Chloride Level 110 MEQ/L Carbon Dioxide Level 19.8 MEQ/L Anion Gap 10 MEQ/L Blood Urea Nitrogen 22 MG/DL Creatinine 0.78 MG/DL Estimat Glomerular Filtration 97 ML/MIN Rate Random Glucose 79 MG/DL Calcium Level 7.6 MG/DL Total Bilirubin 0.3 MG/DL Direct Bilirubin 0.1 MG/DL Indirect Bilirubin 0.2 MG/DL Aspartate Amino Transf 24 U/L (AST/SGOT) Alanine Aminotransferase 14 U/L (ALT/SGPT) Alkaline Phosphatase 49 U/L Total Protein 5.9 GM/DL Albumin 2.2 GM/DL Triglycerides Level 75 MG/DL Cholesterol Level 98 MG/DL LDL Cholesterol 50 MG/DL HDL Cholesterol 33.2 MG/DL Cholesterol/HDL Ratio 2.95 RATIO Microbiology Date/Time Procedure Status Source Growth 05/23/16 15:41 Gram Stain - Final Complete Wound Foot 05/23/16 15:41 Wound Culture - Final Complete Proteus Mirabilis Group A Beta Strep 05/23/16 17:00 Aerobic Blood Culture - Preliminary Resulted Blood Peripheral NO GROWTH IN 2 DAYS 05/23/16 17:00 Anaerobic Blood Culture - Preliminary Resulted Blood Peripheral NO GROWTH IN 2 DAYS 05/23/16 17:20 Aerobic Blood Culture - Preliminary Resulted Blood Peripheral NO GROWTH IN 2 DAYS 05/23/16 17:20 Anaerobic Blood Culture - Preliminary Resulted Blood Peripheral NO GROWTH IN 2 DAYS Imaging Last Impressions Lower Extremity CT 05/25/16 0000 Signed Impressions: Service Date/Time: Wednesday, May 25, 2016 10:22 - CONCLUSION: 1. Diffuse subcutaneous edema. No abscess or convincing evidence of osteomyelitis. 2. Multifocal chronic arthropathy and chronic-appearing malalignment as above. There is mild arch collapse. Probably at least mild distal and insertional tendinosis of tibialis posterior tendon. The visualized portions of the tendon in the lower leg appear at least moderately attenuated. 3. Chronic appearing cystic changes within the distal fibula, most likely degenerative in etiology. 4. Shallow tunnellike tracks plantar aspects of the calcaneus and medial cuneiform, potentially degenerative or postoperative. 5. Diffuse vascular calcifications. Hira Davila MD Aorta w/Runoff CTA 05/25/16 0000 Signed Impressions: Service Date/Time: Wednesday, May 25, 2016 10:22 - CONCLUSION: 1. Severe bilateral infrapopliteal disease with no definite straight line runoff. There is potential short segment focal stenoses of significance involving the superficial femoral arteries bilaterally without segmental occlusion. 2. 4.1 cm infrarenal abdominal aortic aneurysm 3. Ectopic position of the right kidney. 4. Non-incarcerated abdominal wall hernia in the midline Juan Leal MD Foot X-Ray 05/24/16 0000 Signed Impressions: Service Date/Time: Tuesday, May 24, 2016 19:16 - CONCLUSION: Osteopenia, pes planus and other chronic findings as above. No fracture or acute bone destruction seen. Hira Davila MD Chest X-Ray 05/23/16 1531 Signed Impressions: Service Date/Time: Monday, May 23, 2016 15:42 - CONCLUSION: Interstitial prominence bilaterally of uncertain chronicity. Otherwise, no acute finding is identified. Hira Denny MD Head CT 05/23/16 0000 Signed Impressions: Service Date/Time: Monday, May 23, 2016 16:47 - CONCLUSION: 1. No acute intracranial abnormality is identified. There is generalized cerebral atrophy. 2. The periventricular white matter low attenuation and low density in the cricket may represent chronic microvascular ischemic change. 3. There is fluid within the mastoid air cells. Hira Denny MD Physical Exam GENERAL: awake and alert, in no apparent distress. SKIN: Warm and dry. No generalized rash or ecchymosis. HEAD: Atraumatic. Normocephalic. No temporal or scalp tenderness. EYES: [place] conjunctivae, no petechia or hemorrhage. No scleral icterus. No injection or drainage. ENT: Nose without bleeding, or purulent drainage. Moist oral mucosa. NECK: Trachea midline. No JVD or lymphadenopathy. Supple, nontender, no meningeal signs. CARDIOVASCULAR: Regular rate and rhythm without murmurs, gallops, or rubs. RESPIRATORY: Clear to auscultation. Breath sounds equal bilaterally. No wheezes , rales, or rhonchi. GASTROINTESTINAL: Abdomen soft, non-tender, nondistended. Bowel sounds are present. There is a incisional hernia. No hepato-splenomegaly, or palpable masses. No guarding. MUSCULOSKELETAL: He has deformities of all his toes and his fingers. No calf tenderness. RLE: wound between 5th and 4th toes, with dried crusted blood. There is improving erythema on dorsum of his foot more laterally. LLE: Erythema is less, and less swollen. Lymphangitis is better. The open wound on his medial malleolus is dry, No odor. No calf tenderness NEUROLOGICAL:Non-focal PSYCH: Calm and cooperative LINE: PIV with no evidence of infection Assessment & Plan Remarks IMPRESSION Sepsis due to BLE cellulitis, LLE more severe than RLE Has obdulia feet ulcers, prob ischemic ulcers - C/S GAS and Proteus Cellulitis R foot Cellulitis LLE with lymphangitis Severe RA RECOMMENDATION Continue Ancef Change Zosyn to Levaquin Follow C/S Monitor temps Monitor progress Discussed plan with patient and Rachel Robert MD May 25, 2016 17:02
[2016-05-25] MEDS: LEVOFLOXACIN 750 MG TAB PO SCH (17:37)
[2016-05-25] MEDS: ENOXAPARIN SODIUM 40 MG/0.4 ML SYRINGE SQ SCH (17:38)
--- NOTE | 2016-05-25 18:05 | PD.POD ---
Subjective Podiatric Problems L ankle wound and cellulitis R foot ulcer Past Med/Surg/Social History Social History Smoking Status: Former Smoker Objective Vital Signs Vital Signs Date Time Temp Pulse Resp B/P Pulse Ox O2 Delivery O2 Flow Rate FiO2 05/25/16 16:18 98.0 101 20 135/94 99 05/25/16 12:41 98.1 95 20 130/68 98 05/25/16 08:10 98.4 88 20 116/73 96 05/25/16 08:00 105 05/25/16 07:59 98 21 05/25/16 06:06 97.6 90 18 126/57 97 05/25/16 00:08 98.0 84 18 117/55 98 05/24/16 20:02 97.8 81 18 124/58 97 Coded Allergies: MRI PRECAUTION (Unverified Allergy, Unknown, DEFIRILLATOR, 05/24/16) [facility] #[id number], SERIAL # [id number] Other Results Last Impressions Lower Extremity CT 05/25/16 0000 Signed Impressions: Service Date/Time: Wednesday, May 25, 2016 10:22 - CONCLUSION: 1. Diffuse subcutaneous edema. No abscess or convincing evidence of osteomyelitis. 2. Multifocal chronic arthropathy and chronic-appearing malalignment as above. There is mild arch collapse. Probably at least mild distal and insertional tendinosis of tibialis posterior tendon. The visualized portions of the tendon in the lower leg appear at least moderately attenuated. 3. Chronic appearing cystic changes within the distal fibula, most likely degenerative in etiology. 4. Shallow tunnellike tracks plantar aspects of the calcaneus and medial cuneiform, potentially degenerative or postoperative. 5. Diffuse vascular calcifications. Hira Davila MD Aorta w/Runoff CTA 05/25/16 0000 Signed Impressions: Service Date/Time: Wednesday, May 25, 2016 10:22 - CONCLUSION: 1. Severe bilateral infrapopliteal disease with no definite straight line runoff. There is potential short segment focal stenoses of significance involving the superficial femoral arteries bilaterally without segmental occlusion. 2. 4.1 cm infrarenal abdominal aortic aneurysm 3. Ectopic position of the right kidney. 4. Non-incarcerated abdominal wall hernia in the midline Juan Leal MD Foot X-Ray 05/24/16 0000 Signed Impressions: Service Date/Time: Tuesday, May 24, 2016 19:16 - CONCLUSION: Osteopenia, pes planus and other chronic findings as above. No fracture or acute bone destruction seen. Hira Davila MD Chest X-Ray 05/23/16 1531 Signed Impressions: Service Date/Time: Monday, May 23, 2016 15:42 - CONCLUSION: Interstitial prominence bilaterally of uncertain chronicity. Otherwise, no acute finding is identified. Hira Denny MD Head CT 05/23/16 0000 Signed Impressions: Service Date/Time: Monday, May 23, 2016 16:47 - CONCLUSION: 1. No acute intracranial abnormality is identified. There is generalized cerebral atrophy. 2. The periventricular white matter low attenuation and low density in the cricket may represent chronic microvascular ischemic change. 3. There is fluid within the mastoid air cells. Hira Denny MD Objective Remarks Laboratory Tests Test 05/23/16 05/23/16 05/23/16 05/23/16 15:41 16:05 17:15 18:30 Urine Color YELLOW Urine Turbidity CLEAR Urine pH 5.5 Urine Specific [place] 1.024 Urine Protein 30 mg/dL Urine Glucose (UA) NEG mg/dL Urine Ketones 10 mg/dL Urine Occult Blood TRACE Urine Nitrite NEG Urine Bilirubin NEG Urine Urobilinogen LESS THAN 2.0 MG/DL Urine Leukocyte Esterase NEG Urine RBC 2 /hpf Urine WBC 1 /hpf Urine Sperm RARE Microscopic Urinalysis Comment CATH-CULT NOT IND Lactic Acid Level 1.6 mmol/L Troponin I 0.05 NG/ML Lipase 42 U/L Free Thyroxine 1.26 NG/DL Thyroid Stimulating Hormone 2.040 uIU/ML 3rd Gen Hemoglobin A1c 4.2 % Blood Type O POSITIVE Antibody Screen NEGATIVE Blood Bank Comment Test 05/24/16 04:01 White Blood Count 12.0 TH/MM3 Red Blood Count 2.51 MIL/MM3 Hemoglobin 7.5 GM/DL Hematocrit 23.9 % Mean Corpuscular Volume 95.2 FL Mean Corpuscular Hemoglobin 30.0 PG Mean Corpuscular Hemoglobin 31.5 % Concent Red Cell Distribution Width 14.7 % Platelet Count 171 TH/MM3 Mean Platelet Volume 8.7 FL Neutrophils (%) (Auto) 87.0 % Lymphocytes (%) (Auto) 4.3 % Monocytes (%) (Auto) 8.2 % Eosinophils (%) (Auto) 0.1 % Basophils (%) (Auto) 0.4 % Neutrophils # (Auto) 10.4 TH/MM3 Lymphocytes # (Auto) 0.5 TH/MM3 Monocytes # (Auto) 1.0 TH/MM3 Eosinophils # (Auto) 0.0 TH/MM3 Basophils # (Auto) 0.1 TH/MM3 CBC Comment DIFF FINAL Differential Comment Prothrombin Time 12.5 SEC Prothromb Time International 1.1 RATIO Ratio Sodium Level 140 MEQ/L Potassium Level 3.4 MEQ/L Chloride Level 110 MEQ/L Carbon Dioxide Level 19.8 MEQ/L Anion Gap 10 MEQ/L Blood Urea Nitrogen 22 MG/DL Creatinine 0.78 MG/DL Estimat Glomerular Filtration 97 ML/MIN Rate Random Glucose 79 MG/DL Calcium Level 7.6 MG/DL Total Bilirubin 0.3 MG/DL Direct Bilirubin 0.1 MG/DL Indirect Bilirubin 0.2 MG/DL Aspartate Amino Transf 24 U/L (AST/SGOT) Alanine Aminotransferase 14 U/L (ALT/SGPT) Alkaline Phosphatase 49 U/L Total Protein 5.9 GM/DL Albumin 2.2 GM/DL Triglycerides Level 75 MG/DL Cholesterol Level 98 MG/DL LDL Cholesterol 50 MG/DL HDL Cholesterol 33.2 MG/DL Cholesterol/HDL Ratio 2.95 RATIO Laboratory Tests Test 05/23/16 05/23/16 05/23/16 05/23/16 15:41 16:05 17:15 18:30 Urine Color YELLOW Urine Turbidity CLEAR Urine pH 5.5 Urine Specific [place] 1.024 Urine Protein 30 mg/dL Urine Glucose (UA) NEG mg/dL Urine Ketones 10 mg/dL Urine Occult Blood TRACE Urine Nitrite NEG Urine Bilirubin NEG Urine Urobilinogen LESS THAN 2.0 MG/DL Urine Leukocyte Esterase NEG Urine RBC 2 /hpf Urine WBC 1 /hpf Urine Sperm RARE Microscopic Urinalysis Comment CATH-CULT NOT IND Lactic Acid Level 1.6 mmol/L Troponin I 0.05 NG/ML Lipase 42 U/L Free Thyroxine 1.26 NG/DL Thyroid Stimulating Hormone 2.040 uIU/ML 3rd Gen Hemoglobin A1c 4.2 % Blood Type O POSITIVE Antibody Screen NEGATIVE Blood Bank Comment Test 05/24/16 04:01 White Blood Count 12.0 TH/MM3 Red Blood Count 2.51 MIL/MM3 Hemoglobin 7.5 GM/DL Hematocrit 23.9 % Mean Corpuscular Volume 95.2 FL Mean Corpuscular Hemoglobin 30.0 PG Mean Corpuscular Hemoglobin 31.5 % Concent Red Cell Distribution Width 14.7 % Platelet Count 171 TH/MM3 Mean Platelet Volume 8.7 FL Neutrophils (%) (Auto) 87.0 % Lymphocytes (%) (Auto) 4.3 % Monocytes (%) (Auto) 8.2 % Eosinophils (%) (Auto) 0.1 % Basophils (%) (Auto) 0.4 % Neutrophils # (Auto) 10.4 TH/MM3 Lymphocytes # (Auto) 0.5 TH/MM3 Monocytes # (Auto) 1.0 TH/MM3 Eosinophils # (Auto) 0.0 TH/MM3 Basophils # (Auto) 0.1 TH/MM3 CBC Comment DIFF FINAL Differential Comment Prothrombin Time 12.5 SEC Prothromb Time International 1.1 RATIO Ratio Sodium Level 140 MEQ/L Potassium Level 3.4 MEQ/L Chloride Level 110 MEQ/L Carbon Dioxide Level 19.8 MEQ/L Anion Gap 10 MEQ/L Blood Urea Nitrogen 22 MG/DL Creatinine 0.78 MG/DL Estimat Glomerular Filtration 97 ML/MIN Rate Random Glucose 79 MG/DL Calcium Level 7.6 MG/DL Total Bilirubin 0.3 MG/DL Direct Bilirubin 0.1 MG/DL Indirect Bilirubin 0.2 MG/DL Aspartate Amino Transf 24 U/L (AST/SGOT) Alanine Aminotransferase 14 U/L (ALT/SGPT) Alkaline Phosphatase 49 U/L Total Protein 5.9 GM/DL Albumin 2.2 GM/DL Triglycerides Level 75 MG/DL Cholesterol Level 98 MG/DL LDL Cholesterol 50 MG/DL HDL Cholesterol 33.2 MG/DL Cholesterol/HDL Ratio 2.95 RATIO Exam-Podiatry Remarks unchanged Assessment & Plan A/P L ankle wound and cellulitis R foot ulcer Ordered daily scrub and bandage changes bilaterally. Reviewed CT results showing no drainable collection and no evidence of osteomyelitis. Continue wound care and IV antibiotics and will monitor progress in the coming days to determine if further treatment necessary. Stewart Vidal DPM May 25, 2016 18:05
[2016-05-25] MEDS ORDERED: CHLORHEXIDINE GLUCONATE 4% SOLN 120 ML BTL TOPICAL ONE (18:15)
[2016-05-25] MEDS: ZOLPIDEM TARTRATE 5 MG TAB PO PRN (22:10)
[2016-05-25] MEDS: traZODone HCL 100 MG TAB PO SCH (22:10)
[2016-05-26] VITALS (9 sets, daily range): BP systolic 121–166; BP diastolic 68–93; PULSE 68–122; RESP 18–24; TEMP 97.5–98; O2SAT 94–99
[2016-05-26] MEDS: ACETAMINOPHEN 325MG/HYDROcodone 7.5MG/15ML UDC PO PRN ×4 (01:05→21:03)
[2016-05-26 05:22] LABS: BICARBONATE 21.7 MEQ/L (21.0-32.0)
[2016-05-26 05:49] LABS: POTASSIUM 2.9 MEQ/L (3.5-5.1)
[2016-05-26] MEDS: DOCUSATE SODIUM 100 MG CAP PO SCH ×2 (06:05→17:36)
[2016-05-26] MEDS: SODIUM CHLOR 0.9% 1000 ML INJ 1,000 ML IV SCH ×2 (06:05→17:51)
[2016-05-26] MEDS: ceFAZolin 2 GM PREMIX 50 ML IV SCH ×3 (06:25→21:02)
[2016-05-26] MEDS: OXYBUTYNIN CHLORIDE 5 MG TAB PO SCH (08:24)
[2016-05-26] MEDS: PANTOPRAZOLE SOD 20 MG DELAYED RELEASE TAB PO SCH (08:24)
[2016-05-26] MEDS: POTASSIUM CHLOR 20 MEQ PREMIX 100 ML IV SCH ×2 (08:26→11:36)
[2016-05-26] MEDS: SODIUM CHLORIDE 0.9% FLUSH 5 ML FLUSH FLUSH SCH ×2 (08:26→21:01)
[2016-05-26] MEDS: COLLAGENASE OINT 30 GM TUBE TOP SCH (08:34)
[2016-05-26 08:58] LABS: AUTOMATED NEUTROPHIL # 9.7 TH/MM3 (1.8-7.7); BASOPHIL % 0.3 % (0.0-2.0); EOSINOPHIL % 0.4 % (0.0-4.0); HEMATOCRIT 23.1 % (39.0-51.0); HEMO FLAGS DIFF FINAL; LYMPH % 3.3 % (9.0-44.0); LYMPHOCYTE # 0.4 TH/MM3 (1.0-4.8); MEAN CELL VOLUME 90.9 FL (80.0-100.0); MEAN CORPUSCULAR HEMOGLOBIN 30.2 PG (27.0-34.0); MEAN CORPUSCULAR HGB CONC 33.2 % (32.0-36.0); MONO % 6.6 % (0.0-8.0); NEUT % 89.4 % (16.0-70.0); PLATELET COUNT 179 TH/MM3 (150-450); RED BLOOD COUNT 2.55 MIL/MM3 (4.50-5.90); RED CELL DISTRIBUTION WIDTH 15.1 % (11.6-17.2); WHITE BLOOD COUNT 10.8 TH/MM3 (4.0-11.0)
[2016-05-26] MEDS ORDERED: POTASSIUM PHOSPHATE INJ 15 MMOL in SODIUM CHLORIDE 0.9% INJ 150 ML IV ONE (15:00)
--- NOTE | 2016-05-26 15:01 | HHI.PR ---
Subjective Remarks This is a pleasant 75 y/o male with CAD with AICD placement, Atrial Fibrillation , who came to ER with Altered Mental status, with the patient at this time but he is alert and oriented, during the last 72 hours he is been worsening his condition, his noted that the redness of the bilateral lower extremities around his toes patient refused transport was montero acted, he is been also febrile. as we know he has RA, Osteoporosis CAD, Status post LA, Atrial Fibrillation, Defibrillator in place, Patient followed by ID specialist, Vascular specialist, CTA with runoff confirm Severe PAD agree with antibiotic therapy no surgical or endovascular therapy. seen in his bedroom. stable. no complaint. Objective Vital Signs Date Time Temp Pulse Resp B/P Pulse Ox O2 Delivery O2 Flow Rate FiO2 05/26/16 11:32 97.5 122 22 133/73 98 05/26/16 07:59 98.0 112 22 133/90 99 05/26/16 05:25 97.8 82 18 121/75 96 05/26/16 01:50 97.8 84 18 131/78 96 05/25/16 22:22 120 05/25/16 20:55 97.7 90 18 121/79 96 05/25/16 16:18 98.0 101 20 135/94 99 I/O 05/25/16 05/25/16 05/25/16 05/26/16 05/26/16 05/26/16 06:59 14:59 22:59 06:59 14:59 22:59 Intake Total 1100 ml 650 ml Balance 1100 ml 650 ml Intake Oral 300 ml IV Total 1100 ml 350 ml # Voids 10 2 # Bowel Movements 1 Result Diagram: 05/26/16 0844 05/26/16 0431 Imaging Last Impressions Lower Extremity CT 05/25/16 0000 Signed Impressions: Service Date/Time: Wednesday, May 25, 2016 10:22 - CONCLUSION: 1. Diffuse subcutaneous edema. No abscess or convincing evidence of osteomyelitis. 2. Multifocal chronic arthropathy and chronic-appearing malalignment as above. There is mild arch collapse. Probably at least mild distal and insertional tendinosis of tibialis posterior tendon. The visualized portions of the tendon in the lower leg appear at least moderately attenuated. 3. Chronic appearing cystic changes within the distal fibula, most likely degenerative in etiology. 4. Shallow tunnellike tracks plantar aspects of the calcaneus and medial cuneiform, potentially degenerative or postoperative. 5. Diffuse vascular calcifications. Hira Davila MD Aorta w/Runoff CTA 05/25/16 0000 Signed Impressions: Service Date/Time: Wednesday, May 25, 2016 10:22 - CONCLUSION: 1. Severe bilateral infrapopliteal disease with no definite straight line runoff. There is potential short segment focal stenoses of significance involving the superficial femoral arteries bilaterally without segmental occlusion. 2. 4.1 cm infrarenal abdominal aortic aneurysm 3. Ectopic position of the right kidney. 4. Non-incarcerated abdominal wall hernia in the midline Juan Leal MD Foot X-Ray 05/24/16 0000 Signed Impressions: Service Date/Time: Tuesday, May 24, 2016 19:16 - CONCLUSION: Osteopenia, pes planus and other chronic findings as above. No fracture or acute bone destruction seen. Hira Davila MD Chest X-Ray 05/23/16 1531 Signed Impressions: Service Date/Time: Monday, May 23, 2016 15:42 - CONCLUSION: Interstitial prominence bilaterally of uncertain chronicity. Otherwise, no acute finding is identified. Hira Denny MD Head CT 05/23/16 0000 Signed Impressions: Service Date/Time: Monday, May 23, 2016 16:47 - CONCLUSION: 1. No acute intracranial abnormality is identified. There is generalized cerebral atrophy. 2. The periventricular white matter low attenuation and low density in the cricket may represent chronic microvascular ischemic change. 3. There is fluid within the mastoid air cells. Hira Denny MD Procedures No procedures performed to the patient. Other Results Laboratory Tests Test 05/23/16 05/23/16 05/23/16 05/23/16 15:41 16:05 17:15 18:30 Urine Color YELLOW Urine Turbidity CLEAR Urine pH 5.5 Urine Specific [place] 1.024 Urine Protein 30 mg/dL Urine Glucose (UA) NEG mg/dL Urine Ketones 10 mg/dL Urine Occult Blood TRACE Urine Nitrite NEG Urine Bilirubin NEG Urine Urobilinogen LESS THAN 2.0 MG/DL Urine Leukocyte Esterase NEG Urine RBC 2 /hpf Urine WBC 1 /hpf Urine Sperm RARE Microscopic Urinalysis Comment CATH-CULT NOT IND Lactic Acid Level 1.6 mmol/L Troponin I 0.05 NG/ML Lipase 42 U/L Free Thyroxine 1.26 NG/DL Thyroid Stimulating Hormone 2.040 uIU/ML 3rd Gen Hemoglobin A1c 4.2 % Blood Type O POSITIVE Antibody Screen NEGATIVE Blood Bank Comment Test 05/24/16 05/26/16 05/26/16 04:01 04:31 08:44 Prothrombin Time 12.5 SEC Prothromb Time International 1.1 RATIO Ratio Total Bilirubin 0.3 MG/DL Direct Bilirubin 0.1 MG/DL Indirect Bilirubin 0.2 MG/DL Aspartate Amino Transf 24 U/L (AST/SGOT) Alanine Aminotransferase 14 U/L (ALT/SGPT) Alkaline Phosphatase 49 U/L Total Protein 5.9 GM/DL Albumin 2.2 GM/DL Triglycerides Level 75 MG/DL Cholesterol Level 98 MG/DL LDL Cholesterol 50 MG/DL HDL Cholesterol 33.2 MG/DL Cholesterol/HDL Ratio 2.95 RATIO Sodium Level 144 MEQ/L Potassium Level 2.9 MEQ/L Chloride Level 113 MEQ/L Carbon Dioxide Level 21.7 MEQ/L Anion Gap 9 MEQ/L Blood Urea Nitrogen 7 MG/DL Creatinine 0.61 MG/DL Estimat Glomerular Filtration 129 ML/MIN Rate Random Glucose 103 MG/DL Calcium Level 7.8 MG/DL Phosphorus Level 1.5 MG/DL Magnesium Level 2.0 MG/DL White Blood Count 10.8 TH/MM3 Red Blood Count 2.55 MIL/MM3 Hemoglobin 7.7 GM/DL Hematocrit 23.1 % Mean Corpuscular Volume 90.9 FL Mean Corpuscular Hemoglobin 30.2 PG Mean Corpuscular Hemoglobin 33.2 % Concent Red Cell Distribution Width 15.1 % Platelet Count 179 TH/MM3 Mean Platelet Volume 8.8 FL Neutrophils (%) (Auto) 89.4 % Lymphocytes (%) (Auto) 3.3 % Monocytes (%) (Auto) 6.6 % Eosinophils (%) (Auto) 0.4 % Basophils (%) (Auto) 0.3 % Neutrophils # (Auto) 9.7 TH/MM3 Lymphocytes # (Auto) 0.4 TH/MM3 Monocytes # (Auto) 0.7 TH/MM3 Eosinophils # (Auto) 0.0 TH/MM3 Basophils # (Auto) 0.0 TH/MM3 CBC Comment DIFF FINAL Differential Comment Objective Remarks GENERAL: No acute distress. SKIN: Warm. bilateral feet with ulcers, erythema. HEAD: Atraumatic. Normocephalic. EYES: Pupils equal and round. 3 mm. No scleral icterus. No injection or drainage. ENT: No nasal bleeding or discharge. Mucous membranes dry NECK: Supple without rigidity CARDIOVASCULAR: Regular rate and irregular rhythm. No murmur appreciated. RESPIRATORY: Decreased breath sounds no wheezing or crackles. GASTROINTESTINAL: Abdomen soft, non-tender, nondistended. Large ventral hernia MUSCULOSKELETAL: Edema of the left leg extending, bilateral hand and feet deformities, secondary to OA. NEUROLOGICAL: Awake and alert to self. PSYCHIATRIC: Cooperative. Medications and IVs Current Medications Medications (Trade) Dose Ordered Sig/Corey Route Start Time Stop Time Status Last Admin (Ditropan) 5 mg DAILY PO 05/24/16 09:00 05/26/16 08:24 (Protonix) 20 mg DAILY PO 05/24/16 09:00 05/26/16 08:24 Trazodone HCl 150 mg 150 mg HS PO 05/23/16 21:00 05/25/16 22:10 (NS 1000 ml Inj) 1,000 ml @ 100 mls/hr Q10H IV 05/23/16 18:28 05/25/16 22:10 (NS Flush) 2 ml UNSCH PRN FLUSH 05/23/16 18:30 (NS Flush) 2 ml BID FLUSH 05/23/16 21:00 05/26/16 08:26 (Tylenol) 650 mg Q4H PRN PO 05/23/16 18:30 (Zofran Inj) 4 mg Q6H PRN IVP 05/23/16 18:30 05/23/16 20:04 (Reglan Inj) 5 mg Q6H PRN IV PUSH 05/23/16 18:30 05/23/16 20:03 (Dulcolax Supp) 10 mg DAILY PRN VT 05/23/16 18:30 (Colace) 100 mg Q12H PO 05/23/16 18:30 05/25/16 17:37 (Ambien) 5 mg HS PRN PO 05/23/16 18:30 05/25/16 22:10 (Lovenox Inj) 40 mg Q24H SQ 05/23/16 19:00 05/25/16 17:38 (Narcan Inj) 0.4 mg UNSCH PRN IV 05/23/16 18:30 (Pill Splitter) 1 ea UNSCH PRN OTHER 05/23/16 19:30 Acetaminophen/ Hydrocodone Bitart 15 ml 15 ml Q6H PRN PO 05/24/16 06:00 05/26/16 14:19 (Ancef 2 Gm Premix) 50 ml @ 100 mls/hr Q8H IV 05/24/16 14:00 05/26/16 14:18 (Levaquin) 750 mg DAILY@18 PO 05/25/16 18:00 05/25/16 17:37 Collagenase 1 applic 1 applic DAILY TOP 05/26/16 09:00 05/26/16 08:34 (Potassium Phosphate Inj/NS Inj) 155 ml @ 38.75 mls/ hr ONCE ONCE IV 05/26/16 15:00 05/26/16 18:59 A/P Problem List: (1) Cellulitis of left leg ICD Code: L03.116 (2) Sepsis ICD Code: A41.9 Assessment and Plan 1. Acute Toxic Metabolic Encephalopathy secondary to Sepsis and cellulitis, Improved. 2. Bilateral Leg Cellulitis on Cefazolin and Zosyn, blood cultures negative, and wound culture positive for Proteus Mirabilis pansensitive, as per Podiatry specialist recommended to continue IV antibiotics, Ordered Vascular surgery consult, and MRI did not found Osteomyelitis, seen by Vascular specialist found Severe PAD on CTA with runoff no further surgical treatment. as per Podiatry recommended for Left ankle wound and Cellulitis and Right foot ulcer, daily wound care and antibiotics. 3. Sepsis afebrile, tachycardia, Leukocytosis. follow blood culture continue antibiotics Improving. continue Cefazolin and Levofloxacin. 4. Atrial Fibrillation status post AICD not on anticoagulation. 5. CAD by history 6. Osteoporosis 7. electrolyte derangement given replacement for Hypokalemia was 2.9 and Phosphorus was 1.5 Replaced. DVT prophylaxis with Lovenox Discussed with patient Code Status Full Code Discharge Planning Not yet clear to discharge. Problem Qualifiers (1) Sepsis: Qualified Code: A41.9 - Sepsis, due to unspecified organism Mario Suarez MD May 26, 2016 15:01
--- NOTE | 2016-05-26 17:28 | HHI.IDPN ---
Subjective Subjective Remarks Notes reviewed No fever Feels ok CT LE no osteo Aortogram with obdulia infrapopliteal disease Wound C/S GAS and Proteus BC negative WBC down to normal Antibiotics Levaquin Ancef Lines PIV Past Medical History RA Osteoporosis Hiatal Hernia CAD/MD Atrial Fibrillation, has pacer Hypertension PVD Past Surgical History Hernia repair Previous ventral hernia repair Revascularization surgery on his RLE Allergies: Coded Allergies: MRI PRECAUTION (Unverified Allergy, Unknown, DEFIRILLATOR, 05/24/16) [facility] #[id number], SERIAL # [id number] Objective . Vital Signs Date Time Temp Pulse Resp B/P Pulse Ox O2 Delivery O2 Flow Rate FiO2 05/26/16 16:08 97.8 120 24 133/68 98 05/26/16 11:32 97.5 122 22 133/73 98 05/26/16 07:59 98.0 112 22 133/90 99 05/26/16 05:25 97.8 82 18 121/75 96 05/26/16 01:50 97.8 84 18 131/78 96 05/25/16 22:22 120 05/25/16 20:55 97.7 90 18 121/79 96 05/25/16 05/25/16 05/26/16 15:00 23:00 07:00 Intake Total 1100 ml 650 ml Balance 1100 ml 650 ml Intake Oral 300 ml IV Total 1100 ml 350 ml # Voids 10 2 # Bowel Movements 1 . Laboratory Tests Test 05/26/16 08:44 White Blood Count 10.8 TH/MM3 Red Blood Count 2.55 MIL/MM3 Hemoglobin 7.7 GM/DL Hematocrit 23.1 % Mean Corpuscular Volume 90.9 FL Mean Corpuscular Hemoglobin 30.2 PG Mean Corpuscular Hemoglobin 33.2 % Concent Red Cell Distribution Width 15.1 % Platelet Count 179 TH/MM3 Mean Platelet Volume 8.8 FL Neutrophils (%) (Auto) 89.4 % Lymphocytes (%) (Auto) 3.3 % Monocytes (%) (Auto) 6.6 % Eosinophils (%) (Auto) 0.4 % Basophils (%) (Auto) 0.3 % Neutrophils # (Auto) 9.7 TH/MM3 Lymphocytes # (Auto) 0.4 TH/MM3 Monocytes # (Auto) 0.7 TH/MM3 Eosinophils # (Auto) 0.0 TH/MM3 Basophils # (Auto) 0.0 TH/MM3 CBC Comment DIFF FINAL Differential Comment Laboratory Tests Test 05/26/16 04:31 Sodium Level 144 MEQ/L Potassium Level 2.9 MEQ/L Chloride Level 113 MEQ/L Carbon Dioxide Level 21.7 MEQ/L Anion Gap 9 MEQ/L Blood Urea Nitrogen 7 MG/DL Creatinine 0.61 MG/DL Estimat Glomerular Filtration 129 ML/MIN Rate Random Glucose 103 MG/DL Calcium Level 7.8 MG/DL Phosphorus Level 1.5 MG/DL Magnesium Level 2.0 MG/DL Imaging Last Impressions Lower Extremity CT 05/25/16 0000 Signed Impressions: Service Date/Time: Wednesday, May 25, 2016 10:22 - CONCLUSION: 1. Diffuse subcutaneous edema. No abscess or convincing evidence of osteomyelitis. 2. Multifocal chronic arthropathy and chronic-appearing malalignment as above. There is mild arch collapse. Probably at least mild distal and insertional tendinosis of tibialis posterior tendon. The visualized portions of the tendon in the lower leg appear at least moderately attenuated. 3. Chronic appearing cystic changes within the distal fibula, most likely degenerative in etiology. 4. Shallow tunnellike tracks plantar aspects of the calcaneus and medial cuneiform, potentially degenerative or postoperative. 5. Diffuse vascular calcifications. Hira Davila MD Aorta w/Runoff CTA 05/25/16 0000 Signed Impressions: Service Date/Time: Wednesday, May 25, 2016 10:22 - CONCLUSION: 1. Severe bilateral infrapopliteal disease with no definite straight line runoff. There is potential short segment focal stenoses of significance involving the superficial femoral arteries bilaterally without segmental occlusion. 2. 4.1 cm infrarenal abdominal aortic aneurysm 3. Ectopic position of the right kidney. 4. Non-incarcerated abdominal wall hernia in the midline Juan Leal MD Foot X-Ray 05/24/16 0000 Signed Impressions: Service Date/Time: Tuesday, May 24, 2016 19:16 - CONCLUSION: Osteopenia, pes planus and other chronic findings as above. No fracture or acute bone destruction seen. Hira Davila MD Chest X-Ray 05/23/16 1531 Signed Impressions: Service Date/Time: Monday, May 23, 2016 15:42 - CONCLUSION: Interstitial prominence bilaterally of uncertain chronicity. Otherwise, no acute finding is identified. Hira Denny MD Head CT 05/23/16 0000 Signed Impressions: Service Date/Time: Monday, May 23, 2016 16:47 - CONCLUSION: 1. No acute intracranial abnormality is identified. There is generalized cerebral atrophy. 2. The periventricular white matter low attenuation and low density in the cricket may represent chronic microvascular ischemic change. 3. There is fluid within the mastoid air cells. Hira Denny MD Physical Exam GENERAL: awake and alert, NAD SKIN: Warm and dry. No generalized rash EYES: [place] conjunctivae, no petechia or hemorrhage. No scleral icterus. No injection or drainage. ENT: Nose without bleeding, or purulent drainage. Moist oral mucosa. NECK: Trachea midline. No JVD or lymphadenopathy. Supple, nontender, no meningeal signs. CARDIOVASCULAR: Regular rate and rhythm without murmurs, gallops, or rubs. RESPIRATORY: Clear to auscultation. Breath sounds equal bilaterally. No wheezes , rales, or rhonchi. GASTROINTESTINAL: Abdomen soft, non-tender, nondistended. Bowel sounds are present. There is a incisional hernia. No hepato-splenomegaly, or palpable masses. No guarding. MUSCULOSKELETAL: He has deformities of all his toes and his fingers. No calf tenderness. RLE: wound between 5th and 4th toes, with dried crusted blood. There is improving erythema on dorsum of his foot more laterally. LLE: Erythema is less, and less swollen. Lymphangitis is better. The open wound on his medial malleolus is dry. No odor. No calf tenderness NEUROLOGICAL:Non-focal PSYCH: Calm and cooperative LINE: PIV with no evidence of infection Assessment & Plan Remarks IMPRESSION Sepsis due to BLE cellulitis, LLE more severe than RLE - better Has obdulia feet ulcers, prob ischemic ulcers - C/S GAS and Proteus Cellulitis R foot Cellulitis LLE with lymphangitis Severe RA RECOMMENDATION Continue Ancef Continue Levaquin He is doing well from ID standpoint Await vascular input If no further intervention to be done, would be able to change to oral Abx: Keflex and Levaquin and give 10 days on D/C Monitor temps Monitor progress Explained plan to patient and I will be OOT 05/27-05/31 Other ID MD covering in my absence Rachel Robert MD May 26, 2016 17:28
[2016-05-26] MEDS: LEVOFLOXACIN 750 MG TAB PO SCH (17:50)
[2016-05-26] MEDS: ENOXAPARIN SODIUM 40 MG/0.4 ML SYRINGE SQ SCH (17:51)
[2016-05-26] MEDS: ZOLPIDEM TARTRATE 5 MG TAB PO PRN (21:01)
[2016-05-26] MEDS: traZODone HCL 100 MG TAB PO SCH (21:01)
[2016-05-26] MEDS ORDERED: traZODone HCL 100 MG TAB PO SCH (23:00)
[2016-05-26] MEDS ORDERED: QUEtiapine FUMARATE 100 MG TAB PO SCH (23:00)
[2016-05-26] MEDS: METOPROLOL TARTRATE 50 MG TAB PO SCH (23:04)
[2016-05-26] MEDS: AMIODARONE 200 MG TAB PO SCH (23:04)
[2016-05-27] VITALS (12 sets, daily range): BP systolic 126–161; BP diastolic 64–89; PULSE 78–135; RESP 18–20; TEMP 97.1–99.1; O2SAT 96–98
[2016-05-27] MEDS: SODIUM CHLOR 0.9% 1000 ML INJ 1,000 ML IV SCH ×3 (02:28→22:28)
[2016-05-27] MEDS: ACETAMINOPHEN 325MG/HYDROcodone 7.5MG/15ML UDC PO PRN ×4 (04:31→21:48)
[2016-05-27] MEDS: DOCUSATE SODIUM 100 MG CAP PO SCH ×2 (06:30→17:23)
--- NOTE | 2016-05-27 07:34 | HHI.PR ---
Subjective Remarks This is a pleasant 75 y/o male with CAD with AICD placement, Atrial Fibrillation , who came to ER with Altered Mental status, with the patient at this time but he is alert and oriented, during the last 72 hours he is been worsening his condition, his noted that the redness of the bilateral lower extremities around his toes patient refused transport was kylah gilbert, he is been also febrile. as we know he has RA, Osteoporosis CAD, Status post PA, Atrial Fibrillation, Defibrillator in place, Patient followed by ID specialist, Vascular specialist, CTA with runoff confirm Severe PAD agree with antibiotic therapy no surgical or endovascular therapy. seen in his bedroom. Awaiting final by Podiatry specialist, as per ID specialist , with Diagnosis of Sepsis due to Bilateral Lower extremity Cellulitis,LLE mroe severe than RLE, Improving , on wound culture growing Beta Strep and Proteus, Recommended to continue Ancef, Continue Levaquin, if no further intervention recommended to continue Keflex and Levaquin to complete 10 days at discharge, discussed with Patient in the room. he wants to be healed inside the facility before Objective Vital Signs Date Time Temp Pulse Resp B/P Pulse Ox O2 Delivery O2 Flow Rate FiO2 05/27/16 04:05 98.3 84 18 148/89 97 05/27/16 01:03 98.2 78 18 149/80 96 05/26/16 21:00 108 05/26/16 20:50 94 21 05/26/16 19:39 97.9 104 18 166/93 96 05/26/16 16:08 97.8 120 24 133/68 98 05/26/16 11:32 97.5 122 22 133/73 98 05/26/16 08:00 68 05/26/16 08:00 111 05/26/16 08:00 77 05/26/16 08:00 111 05/26/16 08:00 122 05/26/16 07:59 98.0 112 22 133/90 99 I/O 05/26/16 05/26/16 05/26/16 05/27/16 05/27/16 05/27/16 07:00 15:00 23:00 07:00 15:00 23:00 Intake Total 921 ml Balance 921 ml Intake Oral 221 ml IV Total 700 ml Result Diagram: 05/26/16 0844 05/26/16 1627 Imaging Last Impressions Lower Extremity CT 05/25/16 0000 Signed Impressions: Service Date/Time: Wednesday, May 25, 2016 10:22 - CONCLUSION: 1. Diffuse subcutaneous edema. No abscess or convincing evidence of osteomyelitis. 2. Multifocal chronic arthropathy and chronic-appearing malalignment as above. There is mild arch collapse. Probably at least mild distal and insertional tendinosis of tibialis posterior tendon. The visualized portions of the tendon in the lower leg appear at least moderately attenuated. 3. Chronic appearing cystic changes within the distal fibula, most likely degenerative in etiology. 4. Shallow tunnellike tracks plantar aspects of the calcaneus and medial cuneiform, potentially degenerative or postoperative. 5. Diffuse vascular calcifications. Hira Davila MD Aorta w/Runoff CTA 05/25/16 0000 Signed Impressions: Service Date/Time: Wednesday, May 25, 2016 10:22 - CONCLUSION: 1. Severe bilateral infrapopliteal disease with no definite straight line runoff. There is potential short segment focal stenoses of significance involving the superficial femoral arteries bilaterally without segmental occlusion. 2. 4.1 cm infrarenal abdominal aortic aneurysm 3. Ectopic position of the right kidney. 4. Non-incarcerated abdominal wall hernia in the midline Juan Leal MD Foot X-Ray 05/24/16 0000 Signed Impressions: Service Date/Time: Tuesday, May 24, 2016 19:16 - CONCLUSION: Osteopenia, pes planus and other chronic findings as above. No fracture or acute bone destruction seen. Hira Davila MD Chest X-Ray 05/23/16 1531 Signed Impressions: Service Date/Time: Monday, May 23, 2016 15:42 - CONCLUSION: Interstitial prominence bilaterally of uncertain chronicity. Otherwise, no acute finding is identified. Hira Denny MD Head CT 05/23/16 0000 Signed Impressions: Service Date/Time: Monday, May 23, 2016 16:47 - CONCLUSION: 1. No acute intracranial abnormality is identified. There is generalized cerebral atrophy. 2. The periventricular white matter low attenuation and low density in the cricket may represent chronic microvascular ischemic change. 3. There is fluid within the mastoid air cells. Hira Denny MD Procedures No procedures performed to the patient. Other Results Laboratory Tests Test 3/6/05/23/16 05/23/16 05/23/16 15:41 16:05 17:15 18:30 Urine Color YELLOW Urine Turbidity CLEAR Urine pH 5.5 Urine Specific [place] 1.024 Urine Protein 30 mg/dL Urine Glucose (UA) NEG mg/dL Urine Ketones 10 mg/dL Urine Occult Blood TRACE Urine Nitrite NEG Urine Bilirubin NEG Urine Urobilinogen LESS THAN 2.0 MG/DL Urine Leukocyte Esterase NEG Urine RBC 2 /hpf Urine WBC 1 /hpf Urine Sperm RARE Microscopic Urinalysis Comment CATH-CULT NOT IND Lactic Acid Level 1.6 mmol/L Troponin I 0.05 NG/ML Lipase 42 U/L Free Thyroxine 1.26 NG/DL Thyroid Stimulating Hormone 2.040 uIU/ML 3rd Gen Hemoglobin A1c 4.2 % Blood Type O POSITIVE Antibody Screen NEGATIVE Blood Bank Comment Test 05/24/16 05/26/16 05/26/16 05/26/16 04:01 04:31 08:44 16:27 Prothrombin Time 12.5 SEC Prothromb Time International 1.1 RATIO Ratio Total Bilirubin 0.3 MG/DL Direct Bilirubin 0.1 MG/DL Indirect Bilirubin 0.2 MG/DL Aspartate Amino Transf 24 U/L (AST/SGOT) Alanine Aminotransferase 14 U/L (ALT/SGPT) Alkaline Phosphatase 49 U/L Total Protein 5.9 GM/DL Albumin 2.2 GM/DL Triglycerides Level 75 MG/DL Cholesterol Level 98 MG/DL LDL Cholesterol 50 MG/DL HDL Cholesterol 33.2 MG/DL Cholesterol/HDL Ratio 2.95 RATIO Sodium Level 144 MEQ/L Chloride Level 113 MEQ/L Carbon Dioxide Level 21.7 MEQ/L Anion Gap 9 MEQ/L Blood Urea Nitrogen 7 MG/DL Creatinine 0.61 MG/DL Estimat Glomerular Filtration 129 ML/MIN Rate Random Glucose 103 MG/DL Calcium Level 7.8 MG/DL Phosphorus Level 1.5 MG/DL Magnesium Level 2.0 MG/DL White Blood Count 10.8 TH/MM3 Red Blood Count 2.55 MIL/MM3 Hemoglobin 7.7 GM/DL Hematocrit 23.1 % Mean Corpuscular Volume 90.9 FL Mean Corpuscular Hemoglobin 30.2 PG Mean Corpuscular Hemoglobin 33.2 % Concent Red Cell Distribution Width 15.1 % Platelet Count 179 TH/MM3 Mean Platelet Volume 8.8 FL Neutrophils (%) (Auto) 89.4 % Lymphocytes (%) (Auto) 3.3 % Monocytes (%) (Auto) 6.6 % Eosinophils (%) (Auto) 0.4 % Basophils (%) (Auto) 0.3 % Neutrophils # (Auto) 9.7 TH/MM3 Lymphocytes # (Auto) 0.4 TH/MM3 Monocytes # (Auto) 0.7 TH/MM3 Eosinophils # (Auto) 0.0 TH/MM3 Basophils # (Auto) 0.0 TH/MM3 CBC Comment DIFF FINAL Differential Comment Potassium Level 3.3 MEQ/L Objective Remarks GENERAL: No acute distress. SKIN: Warm. bilateral feet with ulcers, erythema. HEAD: Atraumatic. Normocephalic. EYES: Pupils equal and round. 3 mm. No scleral icterus. No injection or drainage. ENT: No nasal bleeding or discharge. Mucous membranes dry NECK: Supple without rigidity CARDIOVASCULAR: Regular rate and irregular rhythm. Systolic Murmur RESPIRATORY: Decreased breath sounds no wheezing or crackles. GASTROINTESTINAL: Abdomen soft, non-tender, nondistended. Large ventral hernia MUSCULOSKELETAL: Edema of the left leg extending, bilateral hand and feet deformities, secondary to OA. dressed feet NEUROLOGICAL: Awake and alert to self. PSYCHIATRIC: Cooperative. Medications and IVs Current Medications Medications (Trade) Dose Ordered Sig/Corey Route Start Time Stop Time Status Last Admin (Ditropan) 5 mg DAILY PO 05/24/16 09:00 05/26/16 08:24 Trazodone HCl 150 mg 150 mg HS PO 05/23/16 21:00 05/26/16 21:01 (NS 1000 ml Inj) 1,000 ml @ 100 mls/hr Q10H IV 05/23/16 18:28 05/26/16 17:51 (NS Flush) 2 ml UNSCH PRN FLUSH 05/23/16 18:30 (NS Flush) 2 ml BID FLUSH 05/23/16 21:00 05/26/16 21:01 (Tylenol) 650 mg Q4H PRN PO 05/23/16 18:30 (Zofran Inj) 4 mg Q6H PRN IVP 05/23/16 18:30 05/23/16 20:04 (Reglan Inj) 5 mg Q6H PRN IV PUSH 05/23/16 18:30 05/23/16 20:03 (Dulcolax Supp) 10 mg DAILY PRN [place] 3/6/17 18:30 (Colace) 100 mg Q12H PO 05/23/16 18:30 05/25/16 17:37 (Ambien) 5 mg HS PRN PO 05/23/16 18:30 05/26/16 21:01 (Lovenox Inj) 40 mg Q24H SQ 05/23/16 19:00 05/26/16 17:51 (Narcan Inj) 0.4 mg UNSCH PRN IV 05/23/16 18:30 (Pill Splitter) 1 ea UNSCH PRN OTHER 05/23/16 19:30 Acetaminophen/ Hydrocodone Bitart 15 ml 15 ml Q6H PRN PO 05/24/16 06:00 05/27/16 04:31 (Ancef 2 Gm Premix) 50 ml @ 100 mls/hr Q8H IV 05/24/16 14:00 05/26/16 21:02 (Levaquin) 750 mg DAILY@18 PO 05/25/16 18:00 05/26/16 17:50 (Santyl Oint) 1 applic DAILY TOP 05/26/16 09:00 05/26/16 08:34 (Cordarone) 200 mg BID PO 05/26/16 23:00 05/26/16 23:04 (TEGretol) 200 mg DAILY PO 05/27/16 09:00 (Lopressor) 50 mg BID PO 05/26/16 23:00 05/26/16 23:04 (Protonix) 40 mg DAILY PO 05/27/16 09:00 (KCl) 10 meq DAILY PO 05/27/16 09:00 A/P Problem List: (1) Cellulitis of left leg ICD Code: L03.116 (2) Sepsis ICD Code: A41.9 Assessment and Plan 1. Acute Toxic Metabolic Encephalopathy secondary to Sepsis and cellulitis, Improved. 2. Bilateral Leg Cellulitis on Cefazolin and Zosyn, blood cultures negative, and wound culture positive for Proteus Mirabilis pansensitive, as per Podiatry specialist recommended to continue IV antibiotics, Ordered Vascular surgery consult, and MRI did not found Osteomyelitis, seen by Vascular specialist found Severe PAD on CTA with runoff no further surgical treatment. as per Podiatry recommended for Left ankle wound and Cellulitis and Right foot ulcer, daily wound care and antibiotics. as per ID okay to discharge on Keflex and Levaquin. 3. Sepsis afebrile, tachycardia, Leukocytosis. follow blood culture continue antibiotics Improving. continue Cefazolin and Levofloxacin. okay to discharge on Keflex and Levaquin. 4. Atrial Fibrillation status post AICD not on anticoagulation. 5. CAD by history 6. Osteoporosis 7. electrolyte derangement given replacement for Hypokalemia was 3.2 giving replacement and has Hypophosphatemia giving 15 mmol of Potassium phosphate. DVT prophylaxis with Lovenox Discussed with patient Code Status Full Code Discharge Planning Awaiting final recommendations from Podiatry specialist for discharge Home and correct Electrolyte derangement. Problem Qualifiers (1) Sepsis: Qualified Code: A41.9 - Sepsis, due to unspecified organism Mario Suarez MD May 27, 2016 07:34
[2016-05-27] MEDS: ceFAZolin 2 GM PREMIX 50 ML IV SCH ×3 (07:40→21:01)
[2016-05-27 08:01] LABS: BICARBONATE 21.5 MEQ/L (21.0-32.0); POTASSIUM 3.2 MEQ/L (3.5-5.1)
[2016-05-27 08:18] LABS: CALCIUM-PROTEIN CORRECTED 7.9 MG/DL (8.5-10.1)
[2016-05-27] MEDS: OXYBUTYNIN CHLORIDE 5 MG TAB PO SCH (08:19)
[2016-05-27] MEDS: POTASSIUM CHLORIDE 10 MEQ CONTROLLED RELEASE TAB PO SCH (08:19)
[2016-05-27] MEDS: METOPROLOL TARTRATE 50 MG TAB PO SCH ×2 (08:19→20:54)
[2016-05-27] MEDS: AMIODARONE 200 MG TAB PO SCH ×2 (08:19→20:54)
[2016-05-27] MEDS: carBAMazepine 200 MG TAB PO SCH (08:20)
[2016-05-27] MEDS: PANTOPRAZOLE SOD 40 MG DELAYED RELEASE TAB PO SCH (08:20)
[2016-05-27] MEDS: SODIUM CHLORIDE 0.9% FLUSH 5 ML FLUSH FLUSH SCH ×2 (08:21→20:54)
[2016-05-27] MEDS ORDERED: HYDROXYCHLOROQUINE SULFATE 200 MG TAB PO SCH (09:00)
[2016-05-27] MEDS: POTASSIUM CHLOR 20 MEQ PREMIX 100 ML IV SCH ×2 (10:51→16:02)
[2016-05-27] MEDS ORDERED: POTASSIUM PHOSPHATE INJ 15 MMOL in SODIUM CHLORIDE 0.9% INJ 150 ML IV ONE (11:00)
[2016-05-27] MEDS: COLLAGENASE OINT 30 GM TUBE TOP SCH (11:03)
[2016-05-27] MEDS ORDERED: METOPROLOL TARTRATE 5 MG/5 ML VIAL IV PUSH ONE ×2 (17:00→17:15)
--- NOTE | 2016-05-27 17:12 | PD.POD ---
Subjective Podiatric Problems L ankle wound and cellulitis R foot ulcer Past Med/Surg/Social History Social History Smoking Status: Former Smoker Objective Vital Signs Vital Signs Date Time Temp Pulse Resp B/P Pulse Ox O2 Delivery O2 Flow Rate FiO2 05/27/16 15:20 98.3 85 19 136/87 98 05/27/16 12:10 97.1 88 19 136/76 97 05/27/16 09:06 98 21 05/27/16 08:00 99.1 87 19 158/75 98 05/27/16 04:05 98.3 84 18 148/89 97 05/27/16 01:03 98.2 78 18 149/80 96 05/26/16 21:00 108 05/26/16 20:50 94 21 05/26/16 19:39 97.9 104 18 166/93 96 Coded Allergies: MRI PRECAUTION (Unverified Allergy, Unknown, DEFIRILLATOR, 05/24/16) [employer] MODEL #[id number], SERIAL # [id number] Medications and IVs Current Medications Medications (Trade) Dose Ordered Sig/Corey Route Start Time Stop Time Status Last Admin (Ditropan) 5 mg DAILY PO 05/24/16 09:00 05/27/16 08:19 Trazodone HCl 150 mg 150 mg HS PO 05/23/16 21:00 05/26/16 21:01 (NS 1000 ml Inj) 1,000 ml @ 100 mls/hr Q10H IV 05/23/16 18:28 05/26/16 17:51 (NS Flush) 2 ml UNSCH PRN FLUSH 05/23/16 18:30 (NS Flush) 2 ml BID FLUSH 05/23/16 21:00 05/26/16 21:01 (Tylenol) 650 mg Q4H PRN PO 05/23/16 18:30 (Zofran Inj) 4 mg Q6H PRN IVP 05/23/16 18:30 05/23/16 20:04 (Reglan Inj) 5 mg Q6H PRN IV PUSH 05/23/16 18:30 05/23/16 20:03 (Dulcolax Supp) 10 mg DAILY PRN [place] 05/23/16 18:30 (Colace) 100 mg Q12H PO 05/23/16 18:30 05/25/16 17:37 (Ambien) 5 mg HS PRN PO 05/23/16 18:30 05/26/16 21:01 (Lovenox Inj) 40 mg Q24H SQ 05/23/16 19:00 05/26/16 17:51 (Narcan Inj) 0.4 mg UNSCH PRN IV 05/23/16 18:30 (Pill Splitter) 1 ea UNSCH PRN OTHER 05/23/16 19:30 Acetaminophen/ Hydrocodone Bitart 15 ml 15 ml Q6H PRN PO 05/24/16 06:00 05/27/16 15:33 (Ancef 2 Gm Premix) 50 ml @ 100 mls/hr Q8H IV 05/24/16 14:00 05/27/16 15:28 (Levaquin) 750 mg DAILY@18 PO 05/25/16 18:00 05/26/16 17:50 (Santyl Oint) 1 applic DAILY TOP 05/26/16 09:00 05/27/16 11:03 (Cordarone) 200 mg BID PO 05/26/16 23:00 05/27/16 08:19 (TEGretol) 200 mg DAILY PO 05/27/16 09:00 05/27/16 08:20 (Lopressor) 50 mg BID PO 05/26/16 23:00 05/27/16 08:19 (Protonix) 40 mg DAILY PO 05/27/16 09:00 05/27/16 08:20 (KCl) 10 meq DAILY PO 05/27/16 09:00 05/27/16 08:19 Other Results Laboratory Tests Test 05/23/16 05/23/16 05/23/16 05/23/16 15:41 16:05 17:15 18:30 Urine Color YELLOW Urine Turbidity CLEAR Urine pH 5.5 Urine Specific [place] 1.024 Urine Protein 30 mg/dL Urine Glucose (UA) NEG mg/dL Urine Ketones 10 mg/dL Urine Occult Blood TRACE Urine Nitrite NEG Urine Bilirubin NEG Urine Urobilinogen LESS THAN 2.0 MG/DL Urine Leukocyte Esterase NEG Urine RBC 2 /hpf Urine WBC 1 /hpf Urine Sperm RARE Microscopic Urinalysis Comment CATH-CULT NOT IND Lactic Acid Level 1.6 mmol/L Troponin I 0.05 NG/ML Lipase 42 U/L Free Thyroxine 1.26 NG/DL Thyroid Stimulating Hormone 2.040 uIU/ML 3rd Gen Hemoglobin A1c 4.2 % Blood Type O POSITIVE Antibody Screen NEGATIVE Blood Bank Comment Test 05/24/16 05/26/16 05/26/16 05/27/16 04:01 04:31 08:44 07:15 Prothrombin Time 12.5 SEC Prothromb Time International 1.1 RATIO Ratio Total Bilirubin 0.3 MG/DL Direct Bilirubin 0.1 MG/DL Indirect Bilirubin 0.2 MG/DL Aspartate Amino Transf 24 U/L (AST/SGOT) Alanine Aminotransferase 14 U/L (ALT/SGPT) Alkaline Phosphatase 49 U/L Albumin 2.2 GM/DL Triglycerides Level 75 MG/DL Cholesterol Level 98 MG/DL LDL Cholesterol 50 MG/DL HDL Cholesterol 33.2 MG/DL Cholesterol/HDL Ratio 2.95 RATIO Magnesium Level 2.0 MG/DL White Blood Count 10.8 TH/MM3 Red Blood Count 2.55 MIL/MM3 Hemoglobin 7.7 GM/DL Hematocrit 23.1 % Mean Corpuscular Volume 90.9 FL Mean Corpuscular Hemoglobin 30.2 PG Mean Corpuscular Hemoglobin 33.2 % Concent Red Cell Distribution Width 15.1 % Platelet Count 179 TH/MM3 Mean Platelet Volume 8.8 FL Neutrophils (%) (Auto) 89.4 % Lymphocytes (%) (Auto) 3.3 % Monocytes (%) (Auto) 6.6 % Eosinophils (%) (Auto) 0.4 % Basophils (%) (Auto) 0.3 % Neutrophils # (Auto) 9.7 TH/MM3 Lymphocytes # (Auto) 0.4 TH/MM3 Monocytes # (Auto) 0.7 TH/MM3 Eosinophils # (Auto) 0.0 TH/MM3 Basophils # (Auto) 0.0 TH/MM3 CBC Comment DIFF FINAL Differential Comment Sodium Level 142 MEQ/L Potassium Level 3.2 MEQ/L Chloride Level 110 MEQ/L Carbon Dioxide Level 21.5 MEQ/L Anion Gap 11 MEQ/L Blood Urea Nitrogen 8 MG/DL Creatinine 0.62 MG/DL Estimat Glomerular Filtration 127 ML/MIN Rate Random Glucose 116 MG/DL Calcium Level 7.3 MG/DL Protein Corrected Calcium 7.9 MG/DL Phosphorus Level 1.6 MG/DL Total Protein 5.9 GM/DL Objective Remarks Laboratory Tests Test 05/23/16 05/23/16 05/23/16 05/23/16 15:41 16:05 17:15 18:30 Urine Color YELLOW Urine Turbidity CLEAR Urine pH 5.5 Urine Specific [place] 1.024 Urine Protein 30 mg/dL Urine Glucose (UA) NEG mg/dL Urine Ketones 10 mg/dL Urine Occult Blood TRACE Urine Nitrite NEG Urine Bilirubin NEG Urine Urobilinogen LESS THAN 2.0 MG/DL Urine Leukocyte Esterase NEG Urine RBC 2 /hpf Urine WBC 1 /hpf Urine Sperm RARE Microscopic Urinalysis Comment CATH-CULT NOT IND Lactic Acid Level 1.6 mmol/L Troponin I 0.05 NG/ML Lipase 42 U/L Free Thyroxine 1.26 NG/DL Thyroid Stimulating Hormone 2.040 uIU/ML 3rd Gen Hemoglobin A1c 4.2 % Blood Type O POSITIVE Antibody Screen NEGATIVE Blood Bank Comment Test 05/24/16 04:01 White Blood Count 12.0 TH/MM3 Red Blood Count 2.51 MIL/MM3 Hemoglobin 7.5 GM/DL Hematocrit 23.9 % Mean Corpuscular Volume 95.2 FL Mean Corpuscular Hemoglobin 30.0 PG Mean Corpuscular Hemoglobin 31.5 % Concent Red Cell Distribution Width 14.7 % Platelet Count 171 TH/MM3 Mean Platelet Volume 8.7 FL Neutrophils (%) (Auto) 87.0 % Lymphocytes (%) (Auto) 4.3 % Monocytes (%) (Auto) 8.2 % Eosinophils (%) (Auto) 0.1 % Basophils (%) (Auto) 0.4 % Neutrophils # (Auto) 10.4 TH/MM3 Lymphocytes # (Auto) 0.5 TH/MM3 Monocytes # (Auto) 1.0 TH/MM3 Eosinophils # (Auto) 0.0 TH/MM3 Basophils # (Auto) 0.1 TH/MM3 CBC Comment DIFF FINAL Differential Comment Prothrombin Time 12.5 SEC Prothromb Time International 1.1 RATIO Ratio Sodium Level 140 MEQ/L Potassium Level 3.4 MEQ/L Chloride Level 110 MEQ/L Carbon Dioxide Level 19.8 MEQ/L Anion Gap 10 MEQ/L Blood Urea Nitrogen 22 MG/DL Creatinine 0.78 MG/DL Estimat Glomerular Filtration 97 ML/MIN Rate Random Glucose 79 MG/DL Calcium Level 7.6 MG/DL Total Bilirubin 0.3 MG/DL Direct Bilirubin 0.1 MG/DL Indirect Bilirubin 0.2 MG/DL Aspartate Amino Transf 24 U/L (AST/SGOT) Alanine Aminotransferase 14 U/L (ALT/SGPT) Alkaline Phosphatase 49 U/L Total Protein 5.9 GM/DL Albumin 2.2 GM/DL Triglycerides Level 75 MG/DL Cholesterol Level 98 MG/DL LDL Cholesterol 50 MG/DL HDL Cholesterol 33.2 MG/DL Cholesterol/HDL Ratio 2.95 RATIO Laboratory Tests Test 05/23/16 05/23/16 05/23/16 05/23/16 15:41 16:05 17:15 18:30 Urine Color YELLOW Urine Turbidity CLEAR Urine pH 5.5 Urine Specific [place] 1.024 Urine Protein 30 mg/dL Urine Glucose (UA) NEG mg/dL Urine Ketones 10 mg/dL Urine Occult Blood TRACE Urine Nitrite NEG Urine Bilirubin NEG Urine Urobilinogen LESS THAN 2.0 MG/DL Urine Leukocyte Esterase NEG Urine RBC 2 /hpf Urine WBC 1 /hpf Urine Sperm RARE Microscopic Urinalysis Comment CATH-CULT NOT IND Lactic Acid Level 1.6 mmol/L Troponin I 0.05 NG/ML Lipase 42 U/L Free Thyroxine 1.26 NG/DL Thyroid Stimulating Hormone 2.040 uIU/ML 3rd Gen Hemoglobin A1c 4.2 % Blood Type O POSITIVE Antibody Screen NEGATIVE Blood Bank Comment Test 05/24/16 04:01 White Blood Count 12.0 TH/MM3 Red Blood Count 2.51 MIL/MM3 Hemoglobin 7.5 GM/DL Hematocrit 23.9 % Mean Corpuscular Volume 95.2 FL Mean Corpuscular Hemoglobin 30.0 PG Mean Corpuscular Hemoglobin 31.5 % Concent Red Cell Distribution Width 14.7 % Platelet Count 171 TH/MM3 Mean Platelet Volume 8.7 FL Neutrophils (%) (Auto) 87.0 % Lymphocytes (%) (Auto) 4.3 % Monocytes (%) (Auto) 8.2 % Eosinophils (%) (Auto) 0.1 % Basophils (%) (Auto) 0.4 % Neutrophils # (Auto) 10.4 TH/MM3 Lymphocytes # (Auto) 0.5 TH/MM3 Monocytes # (Auto) 1.0 TH/MM3 Eosinophils # (Auto) 0.0 TH/MM3 Basophils # (Auto) 0.1 TH/MM3 CBC Comment DIFF FINAL Differential Comment Prothrombin Time 12.5 SEC Prothromb Time International 1.1 RATIO Ratio Sodium Level 140 MEQ/L Potassium Level 3.4 MEQ/L Chloride Level 110 MEQ/L Carbon Dioxide Level 19.8 MEQ/L Anion Gap 10 MEQ/L Blood Urea Nitrogen 22 MG/DL Creatinine 0.78 MG/DL Estimat Glomerular Filtration 97 ML/MIN Rate Random Glucose 79 MG/DL Calcium Level 7.6 MG/DL Total Bilirubin 0.3 MG/DL Direct Bilirubin 0.1 MG/DL Indirect Bilirubin 0.2 MG/DL Aspartate Amino Transf 24 U/L (AST/SGOT) Alanine Aminotransferase 14 U/L (ALT/SGPT) Alkaline Phosphatase 49 U/L Total Protein 5.9 GM/DL Albumin 2.2 GM/DL Triglycerides Level 75 MG/DL Cholesterol Level 98 MG/DL LDL Cholesterol 50 MG/DL HDL Cholesterol 33.2 MG/DL Cholesterol/HDL Ratio 2.95 RATIO Assessment & Plan A/P L ankle wound and cellulitis R foot ulcer Continue daily scrubbing with hibiclens and bandage changes bilaterally as ordered with betadine to R between all toes and santyl to wound L ankle with dry sterile dressing. Recommended for home to continue this local wound care. CT results showing no drainable collection and no evidence of osteomyelitis. Plan to assess wounds again tomorrow and will leave further recommendations, if there are any changes Stewart Vidal DPM May 27, 2016 17:12
[2016-05-27] MEDS: ENOXAPARIN SODIUM 40 MG/0.4 ML SYRINGE SQ SCH (17:21)
[2016-05-27] MEDS: LEVOFLOXACIN 750 MG TAB PO SCH (17:21)
[2016-05-27] MEDS: ZOLPIDEM TARTRATE 5 MG TAB PO PRN (20:54)
[2016-05-27] MEDS: traZODone HCL 100 MG TAB PO SCH (20:54)
[2016-05-28] VITALS (7 sets, daily range): BP systolic 106–169; BP diastolic 70–82; PULSE 87–139; RESP 16–20; TEMP 97.5–98.5; O2SAT 97–99
[2016-05-28] MEDS: ACETAMINOPHEN 325MG/HYDROcodone 7.5MG/15ML UDC PO PRN ×3 (04:39→20:02)
[2016-05-28] MEDS: ceFAZolin 2 GM PREMIX 50 ML IV SCH ×3 (06:03→20:07)
[2016-05-28] MEDS: DOCUSATE SODIUM 100 MG CAP PO SCH ×2 (06:03→16:59)
[2016-05-28] MEDS: SODIUM CHLOR 0.9% 1000 ML INJ 1,000 ML IV SCH ×2 (08:14→20:06)
[2016-05-28] MEDS: OXYBUTYNIN CHLORIDE 5 MG TAB PO SCH (08:15)
[2016-05-28] MEDS: METOPROLOL TARTRATE 50 MG TAB PO SCH ×2 (08:15→20:03)
[2016-05-28] MEDS: SODIUM CHLORIDE 0.9% FLUSH 5 ML FLUSH FLUSH SCH ×2 (08:15→20:05)
[2016-05-28] MEDS: PANTOPRAZOLE SOD 40 MG DELAYED RELEASE TAB PO SCH (08:16)
[2016-05-28] MEDS: POTASSIUM CHLORIDE 10 MEQ CONTROLLED RELEASE TAB PO SCH (08:16)
[2016-05-28] MEDS: AMIODARONE 200 MG TAB PO SCH ×2 (08:16→20:04)
[2016-05-28] MEDS: carBAMazepine 200 MG TAB PO SCH (08:17)
--- NOTE | 2016-05-28 08:42 | HHI.PR ---
Subjective Remarks This is a pleasant 75 y/o male with CAD with AICD placement, Atrial Fibrillation , who came to ER with Altered Mental status, with the patient at this time but he is alert and oriented, during the last 72 hours he is been worsening his condition, his noted that the redness of the bilateral lower extremities around his toes patient refused transport was kylah gilbert, he is been also febrile. as we know he has RA, Osteoporosis CAD, Status post DE, Atrial Fibrillation, Defibrillator in place, Patient followed by ID specialist, Vascular specialist, CTA with runoff confirm Severe PAD agree with antibiotic therapy no surgical or endovascular therapy. seen in his bedroom. Awaiting final by Podiatry specialist, as per ID specialist , with Diagnosis of Sepsis due to Bilateral Lower extremity Cellulitis,LLE mroe severe than RLE, Improving , on wound culture growing Beta Strep and Proteus, Recommended to continue Ancef, Continue Levaquin, if no further intervention recommended to continue Keflex and Levaquin to complete 10 days at discharge. 05/28 Stable seen in his bedroom in the presence of his , discussed with nurse Miss Harding yakelin. seen by senior quality methods specialist. Interrogated pacemaker. Objective Vital Signs Date Time Temp Pulse Resp B/P Pulse Ox O2 Delivery O2 Flow Rate FiO2 05/28/16 04:19 97.8 100 20 160/70 98 05/27/16 23:25 98.2 84 20 138/64 98 05/27/16 21:00 90 05/27/16 19:38 98.5 93 20 151/71 98 05/27/16 17:00 161/84 98 05/27/16 16:00 140/82 98 05/27/16 15:20 98.3 85 19 136/87 98 05/27/16 12:10 97.1 88 19 136/76 97 05/27/16 09:06 98 21 I/O 05/27/16 05/27/16 05/27/16 05/28/16 05/28/16 05/28/16 07:00 15:00 23:00 07:00 15:00 23:00 Intake Total 850 ml Balance 850 ml Intake Oral 100 ml IV Total 750 ml # Voids 5 # Bowel Movements 0 Result Diagram: 05/26/16 0844 05/28/16 0636 Imaging Last Impressions Lower Extremity CT 05/25/16 0000 Signed Impressions: Service Date/Time: Wednesday, May 25, 2016 10:22 - CONCLUSION: 1. Diffuse subcutaneous edema. No abscess or convincing evidence of osteomyelitis. 2. Multifocal chronic arthropathy and chronic-appearing malalignment as above. There is mild arch collapse. Probably at least mild distal and insertional tendinosis of tibialis posterior tendon. The visualized portions of the tendon in the lower leg appear at least moderately attenuated. 3. Chronic appearing cystic changes within the distal fibula, most likely degenerative in etiology. 4. Shallow tunnellike tracks plantar aspects of the calcaneus and medial cuneiform, potentially degenerative or postoperative. 5. Diffuse vascular calcifications. Hira Davila MD Aorta w/Runoff CTA 05/25/16 0000 Signed Impressions: Service Date/Time: Wednesday, May 25, 2016 10:22 - CONCLUSION: 1. Severe bilateral infrapopliteal disease with no definite straight line runoff. There is potential short segment focal stenoses of significance involving the superficial femoral arteries bilaterally without segmental occlusion. 2. 4.1 cm infrarenal abdominal aortic aneurysm 3. Ectopic position of the right kidney. 4. Non-incarcerated abdominal wall hernia in the midline Juan Leal MD Foot X-Ray 05/24/16 0000 Signed Impressions: Service Date/Time: Tuesday, May 24, 2016 19:16 - CONCLUSION: Osteopenia, pes planus and other chronic findings as above. No fracture or acute bone destruction seen. Hira Davila MD Chest X-Ray 05/23/16 1531 Signed Impressions: Service Date/Time: Monday, May 23, 2016 15:42 - CONCLUSION: Interstitial prominence bilaterally of uncertain chronicity. Otherwise, no acute finding is identified. Hira Denny MD Head CT 05/23/16 0000 Signed Impressions: Service Date/Time: Monday, May 23, 2016 16:47 - CONCLUSION: 1. No acute intracranial abnormality is identified. There is generalized cerebral atrophy. 2. The periventricular white matter low attenuation and low density in the cricket may represent chronic microvascular ischemic change. 3. There is fluid within the mastoid air cells. Hira Denny MD Procedures No procedures performed to the patient. Other Results Laboratory Tests Test 05/24/16 05/26/16 05/26/16 05/27/16 04:01 04:31 08:44 07:15 Prothrombin Time 12.5 SEC Prothromb Time International 1.1 RATIO Ratio Total Bilirubin 0.3 MG/DL Direct Bilirubin 0.1 MG/DL Indirect Bilirubin 0.2 MG/DL Aspartate Amino Transf 24 U/L (AST/SGOT) Alanine Aminotransferase 14 U/L (ALT/SGPT) Alkaline Phosphatase 49 U/L Albumin 2.2 GM/DL Triglycerides Level 75 MG/DL Cholesterol Level 98 MG/DL LDL Cholesterol 50 MG/DL HDL Cholesterol 33.2 MG/DL Cholesterol/HDL Ratio 2.95 RATIO Magnesium Level 2.0 MG/DL White Blood Count 10.8 TH/MM3 Red Blood Count 2.55 MIL/MM3 Hemoglobin 7.7 GM/DL Hematocrit 23.1 % Mean Corpuscular Volume 90.9 FL Mean Corpuscular Hemoglobin 30.2 PG Mean Corpuscular Hemoglobin 33.2 % Concent Red Cell Distribution Width 15.1 % Platelet Count 179 TH/MM3 Mean Platelet Volume 8.8 FL Neutrophils (%) (Auto) 89.4 % Lymphocytes (%) (Auto) 3.3 % Monocytes (%) (Auto) 6.6 % Eosinophils (%) (Auto) 0.4 % Basophils (%) (Auto) 0.3 % Neutrophils # (Auto) 9.7 TH/MM3 Lymphocytes # (Auto) 0.4 TH/MM3 Monocytes # (Auto) 0.7 TH/MM3 Eosinophils # (Auto) 0.0 TH/MM3 Basophils # (Auto) 0.0 TH/MM3 CBC Comment DIFF FINAL Differential Comment Sodium Level 142 MEQ/L Chloride Level 110 MEQ/L Carbon Dioxide Level 21.5 MEQ/L Anion Gap 11 MEQ/L Blood Urea Nitrogen 8 MG/DL Creatinine 0.62 MG/DL Estimat Glomerular Filtration 127 ML/MIN Rate Random Glucose 116 MG/DL Calcium Level 7.3 MG/DL Protein Corrected Calcium 7.9 MG/DL Phosphorus Level 1.6 MG/DL Total Protein 5.9 GM/DL Test 05/28/16 06:36 Potassium Level 3.8 MEQ/L Objective Remarks GENERAL: No acute distress. SKIN: Warm. bilateral feet with ulcers, erythema. HEAD: Atraumatic. Normocephalic. EYES: Pupils equal and round. 3 mm. No scleral icterus. No injection or drainage. ENT: No nasal bleeding or discharge. Mucous membranes dry NECK: Supple without rigidity CARDIOVASCULAR: Regular rate and irregular rhythm. Systolic Murmur RESPIRATORY: Decreased breath sounds no wheezing or crackles. GASTROINTESTINAL: Abdomen soft, non-tender, nondistended. Large ventral hernia MUSCULOSKELETAL: Edema of the left leg extending, bilateral hand and feet deformities, secondary to OA. dressed feet NEUROLOGICAL: Awake and alert to self. PSYCHIATRIC: Cooperative. Medications and IVs Current Medications Medications (Trade) Dose Ordered Sig/Corey Route Start Time Stop Time Status Last Admin (Ditropan) 5 mg DAILY PO 05/24/16 09:00 05/28/16 08:15 Trazodone HCl 150 mg 150 mg HS PO 05/23/16 21:00 05/27/16 20:54 (NS 1000 ml Inj) 1,000 ml @ 100 mls/hr Q10H IV 05/23/16 18:28 05/28/16 08:14 (NS Flush) 2 ml UNSCH PRN FLUSH 05/23/16 18:30 (NS Flush) 2 ml BID FLUSH 05/23/16 21:00 05/28/16 08:15 (Tylenol) 650 mg Q4H PRN PO 05/23/16 18:30 05/28/16 08:27 (Zofran Inj) 4 mg Q6H PRN IVP 05/23/16 18:30 05/23/16 20:04 (Reglan Inj) 5 mg Q6H PRN IV PUSH 05/23/16 18:30 05/23/16 20:03 (Dulcolax Supp) 10 mg DAILY PRN HI 05/23/16 18:30 (Colace) 100 mg Q12H PO 05/23/16 18:30 05/25/16 17:37 (Ambien) 5 mg HS PRN PO 05/23/16 18:30 05/27/16 20:54 (Lovenox Inj) 40 mg Q24H SQ 05/23/16 19:00 05/27/16 17:21 (Narcan Inj) 0.4 mg UNSCH PRN IV 05/23/16 18:30 (Pill Splitter) 1 ea UNSCH PRN OTHER 05/23/16 19:30 Acetaminophen/ Hydrocodone Bitart 15 ml 15 ml Q6H PRN PO 05/24/16 06:00 05/28/16 04:39 (Ancef 2 Gm Premix) 50 ml @ 100 mls/hr Q8H IV 05/24/16 14:00 05/28/16 06:03 (Levaquin) 750 mg DAILY@18 PO 05/25/16 18:00 05/27/16 17:21 (Santyl Oint) 1 applic DAILY TOP 05/26/16 09:00 05/27/16 11:03 (Cordarone) 200 mg BID PO 05/26/16 23:00 05/28/16 08:16 (TEGretol) 200 mg DAILY PO 05/27/16 09:00 05/28/16 08:17 (Lopressor) 50 mg BID PO 05/26/16 23:00 05/28/16 08:15 (Protonix) 40 mg DAILY PO 05/27/16 09:00 05/28/16 08:16 (KCl) 10 meq DAILY PO 05/27/16 09:00 05/28/16 08:16 A/P Problem List: (1) Cellulitis of left leg ICD Code: L03.116 (2) Sepsis ICD Code: A41.9 Assessment and Plan 1. Acute Toxic Metabolic Encephalopathy secondary to Sepsis and cellulitis, Improved. 2. Bilateral Leg Cellulitis initially on Cefazolin and Zosyn, blood cultures negative, and wound culture positive for Proteus Mirabilis pansensitive, MRI did not found Osteomyelitis, seen by Vascular specialist found Severe PAD on CTA with runoff no further surgical treatment. as per ID recommended to switch to Levaquin by mouth and continue Cefazolin, Podiatry specialist will attempt to perform an I and D at bedside. iotics 3. Sepsis afebrile, tachycardia, Leukocytosis. follow blood culture continue antibiotics Improving. continue Cefazolin and Levofloxacin. okay to discharge on Keflex and Levaquin. 4. Atrial Fibrillation status post AICD not on anticoagulation. had since yesterday NSVT given Metoprolol senior quality methods specialist assistance appreciated. 5. CAD by history 6. Osteoporosis 7. electrolyte derangement replaced. DVT prophylaxis with Lovenox Discussed with patient Code Status Full Code Discharge Planning Not ye cleared by specialists. Problem Qualifiers (1) Sepsis: Qualified Code: A41.9 - Sepsis, due to unspecified organism Mario Suarez MD May 28, 2016 08:42 and Levaquin. 4. Atrial Fibrillation status post AICD not on anticoagulation. 5. CAD by history 6. Osteoporosis 7. electrolyte derangement given replacement for Hypokalemia was 3.2 giving replacement and has Hypophosphatemia giving 15 mmol of Potassium phosphate. DVT prophylaxis with Lovenox Discussed with patient Code Status Full Code Discharge Planning Awaiting final recommendations from Podiatry specialist for discharge Home and correct Electrolyte derangement. Problem Qualifiers (1) Sepsis: Qualified Code: A41.9 - Sepsis, due to unspecified organism Mario Suarez MD May 28, 2016 08:42
[2016-05-28] MEDS: COLLAGENASE OINT 30 GM TUBE TOP SCH (08:53)
[2016-05-28 09:50] LABS: HEMATOCRIT 27.6 % (39.0-51.0); MEAN CELL VOLUME 89.2 FL (80.0-100.0); MEAN CORPUSCULAR HEMOGLOBIN 29.5 PG (27.0-34.0); MEAN CORPUSCULAR HGB CONC 33.1 % (32.0-36.0); PLATELET COUNT 268 TH/MM3 (150-450); RED CELL DISTRIBUTION WIDTH 15.2 % (11.6-17.2)
[2016-05-28 09:51] LABS: HEMO FLAGS AUTO DIFF
[2016-05-28] MEDS ORDERED: METOPROLOL TARTRATE 5 MG/5 ML VIAL IV PUSH ONE (10:00)
[2016-05-28 10:07] LABS: BICARBONATE 24.3 MEQ/L (21.0-32.0); POTASSIUM 3.9 MEQ/L (3.5-5.1)
[2016-05-28 10:18] LABS: BANDS 1 % (0-6); EOSINOPHILS 1 % (0-4); NEUTROPHIL # MANUAL DIFF 11.6 TH/MM3 (1.8-7.7); OVALOCYTES 1+ (NORMAL); PLATELET ESTIMATE SMEAR NORMAL (NORMAL); PLATELET MORPHOLOGY NORMAL (NORMAL); POLYS (SEG NEUTROPHILS) 88 % (16-70); SCAN/DIFF FINAL DIFF MANUAL; TOXIC GRANULATION 1+ (NORMAL); WBC DIFF SAMPLE 100
--- NOTE | 2016-05-28 11:09 | PD.POD ---
Subjective Podiatric Problems L ankle wound and cellulitis R foot ulcer Past Med/Surg/Social History Social History Smoking Status: Former Smoker Objective Vital Signs Vital Signs Date Time Temp Pulse Resp B/P Pulse Ox O2 Delivery O2 Flow Rate FiO2 05/28/16 08:00 97.5 95 20 128/77 98 05/28/16 04:19 97.8 100 20 160/70 98 05/27/16 23:25 98.2 84 20 138/64 98 05/27/16 21:00 90 05/27/16 19:38 98.5 93 20 151/71 98 05/27/16 17:00 161/84 98 05/27/16 16:00 140/82 98 05/27/16 15:20 98.3 85 19 136/87 98 05/27/16 12:10 97.1 88 19 136/76 97 Coded Allergies: MRI PRECAUTION (Unverified Allergy, Unknown, DEFIRILLATOR, 05/24/16) [employer] MODEL #[id number], SERIAL # [id number] Objective Remarks Laboratory Tests Test 05/23/16 05/23/16 05/23/16 05/23/16 15:41 16:05 17:15 18:30 Urine Color YELLOW Urine Turbidity CLEAR Urine pH 5.5 Urine Specific Oscar 1.024 Urine Protein 30 mg/dL Urine Glucose (UA) NEG mg/dL Urine Ketones 10 mg/dL Urine Occult Blood TRACE Urine Nitrite NEG Urine Bilirubin NEG Urine Urobilinogen LESS THAN 2.0 MG/DL Urine Leukocyte Esterase NEG Urine RBC 2 /hpf Urine WBC 1 /hpf Urine Sperm RARE Microscopic Urinalysis Comment CATH-CULT NOT IND Lactic Acid Level 1.6 mmol/L Troponin I 0.05 NG/ML Lipase 42 U/L Free Thyroxine 1.26 NG/DL Thyroid Stimulating Hormone 2.040 uIU/ML 3rd Gen Hemoglobin A1c 4.2 % Blood Type O POSITIVE Antibody Screen NEGATIVE Blood Bank Comment Test 05/24/16 04:01 White Blood Count 12.0 TH/MM3 Red Blood Count 2.51 MIL/MM3 Hemoglobin 7.5 GM/DL Hematocrit 23.9 % Mean Corpuscular Volume 95.2 FL Mean Corpuscular Hemoglobin 30.0 PG Mean Corpuscular Hemoglobin 31.5 % Concent Red Cell Distribution Width 14.7 % Platelet Count 171 TH/MM3 Mean Platelet Volume 8.7 FL Neutrophils (%) (Auto) 87.0 % Lymphocytes (%) (Auto) 4.3 % Monocytes (%) (Auto) 8.2 % Eosinophils (%) (Auto) 0.1 % Basophils (%) (Auto) 0.4 % Neutrophils # (Auto) 10.4 TH/MM3 Lymphocytes # (Auto) 0.5 TH/MM3 Monocytes # (Auto) 1.0 TH/MM3 Eosinophils # (Auto) 0.0 TH/MM3 Basophils # (Auto) 0.1 TH/MM3 CBC Comment DIFF FINAL Differential Comment Prothrombin Time 12.5 SEC Prothromb Time International 1.1 RATIO Ratio Sodium Level 140 MEQ/L Potassium Level 3.4 MEQ/L Chloride Level 110 MEQ/L Carbon Dioxide Level 19.8 MEQ/L Anion Gap 10 MEQ/L Blood Urea Nitrogen 22 MG/DL Creatinine 0.78 MG/DL Estimat Glomerular Filtration 97 ML/MIN Rate Random Glucose 79 MG/DL Calcium Level 7.6 MG/DL Total Bilirubin 0.3 MG/DL Direct Bilirubin 0.1 MG/DL Indirect Bilirubin 0.2 MG/DL Aspartate Amino Transf 24 U/L (AST/SGOT) Alanine Aminotransferase 14 U/L (ALT/SGPT) Alkaline Phosphatase 49 U/L Total Protein 5.9 GM/DL Albumin 2.2 GM/DL Triglycerides Level 75 MG/DL Cholesterol Level 98 MG/DL LDL Cholesterol 50 MG/DL HDL Cholesterol 33.2 MG/DL Cholesterol/HDL Ratio 2.95 RATIO Laboratory Tests Test 05/23/16 05/23/16 05/23/16 05/23/16 15:41 16:05 17:15 18:30 Urine Color YELLOW Urine Turbidity CLEAR Urine pH 5.5 Urine Specific Oscar 1.024 Urine Protein 30 mg/dL Urine Glucose (UA) NEG mg/dL Urine Ketones 10 mg/dL Urine Occult Blood TRACE Urine Nitrite NEG Urine Bilirubin NEG Urine Urobilinogen LESS THAN 2.0 MG/DL Urine Leukocyte Esterase NEG Urine RBC 2 /hpf Urine WBC 1 /hpf Urine Sperm RARE Microscopic Urinalysis Comment CATH-CULT NOT IND Lactic Acid Level 1.6 mmol/L Troponin I 0.05 NG/ML Lipase 42 U/L Free Thyroxine 1.26 NG/DL Thyroid Stimulating Hormone 2.040 uIU/ML 3rd Gen Hemoglobin A1c 4.2 % Blood Type O POSITIVE Antibody Screen NEGATIVE Blood Bank Comment Test 05/24/16 04:01 White Blood Count 12.0 TH/MM3 Red Blood Count 2.51 MIL/MM3 Hemoglobin 7.5 GM/DL Hematocrit 23.9 % Mean Corpuscular Volume 95.2 FL Mean Corpuscular Hemoglobin 30.0 PG Mean Corpuscular Hemoglobin 31.5 % Concent Red Cell Distribution Width 14.7 % Platelet Count 171 TH/MM3 Mean Platelet Volume 8.7 FL Neutrophils (%) (Auto) 87.0 % Lymphocytes (%) (Auto) 4.3 % Monocytes (%) (Auto) 8.2 % Eosinophils (%) (Auto) 0.1 % Basophils (%) (Auto) 0.4 % Neutrophils # (Auto) 10.4 TH/MM3 Lymphocytes # (Auto) 0.5 TH/MM3 Monocytes # (Auto) 1.0 TH/MM3 Eosinophils # (Auto) 0.0 TH/MM3 Basophils # (Auto) 0.1 TH/MM3 CBC Comment DIFF FINAL Differential Comment Prothrombin Time 12.5 SEC Prothromb Time International 1.1 RATIO Ratio Sodium Level 140 MEQ/L Potassium Level 3.4 MEQ/L Chloride Level 110 MEQ/L Carbon Dioxide Level 19.8 MEQ/L Anion Gap 10 MEQ/L Blood Urea Nitrogen 22 MG/DL Creatinine 0.78 MG/DL Estimat Glomerular Filtration 97 ML/MIN Rate Random Glucose 79 MG/DL Calcium Level 7.6 MG/DL Total Bilirubin 0.3 MG/DL Direct Bilirubin 0.1 MG/DL Indirect Bilirubin 0.2 MG/DL Aspartate Amino Transf 24 U/L (AST/SGOT) Alanine Aminotransferase 14 U/L (ALT/SGPT) Alkaline Phosphatase 49 U/L Total Protein 5.9 GM/DL Albumin 2.2 GM/DL Triglycerides Level 75 MG/DL Cholesterol Level 98 MG/DL LDL Cholesterol 50 MG/DL HDL Cholesterol 33.2 MG/DL Cholesterol/HDL Ratio 2.95 RATIO Physical Exam Remarks R 4th webspace with purulent drainage present and fibrotic tissue. painful to palpation. L medial ankle with less erythema. Large fibrotic tissue area to medial ankle with no purulence I can see at this time. Still very painful Assessment & Plan A/P L ankle wound and cellulitis R foot ulcer No bandage was on the R foot as ordered and patient relays nursing was not applying one as I had ordered Upon original consult, I ordered very specifically for BOTH feet to have daily scrubbing with hibiclens and bandage changes bilaterally as ordered with betadine to R between all toes and santyl to wound L ankle with dry sterile dressing. Discussed with nurse today, since he has been moved to the floor instead of down in G pod, to please adhere to these strict bandage change orders. Plan to order materials bedside to attempt debridement of these areas to patient's tolerance Continue IV antibiotics Stewart Vidal DPM May 28, 2016 11:09
[2016-05-28] MEDS ORDERED: LIDOCAINE HCL 2% 20 ML VIAL INFIL ONE (12:00)
--- NOTE | 2016-05-28 14:24 | MB ---
cc: SHAWANDA PAGAN MD DATE OF CONSULTATION: 05/28/2016. REASON FOR CONSULTATION: Nonsustained ventricular tachycardia. HISTORY OF PRESENT ILLNESS: The patient is a pleasant 75-year gentleman with a complex cardiac history including cardiomyopathy, coronary artery disease and history of defibrillator although the patient was also somewhat vague on the details. He does come to our office, so I will obtain further details from the chart when the office chart is available. He presented with altered mental status as well as redness of the bilateral lower extremities and toes. He had to be Gamino Acted and has been treated a Strep wound infection with possible sepsis. While on the monitor, he has had episodic wide complex tachyarrhythmia but no defibrillator shocks. Currently the patient is asymptomatic and denying any current chest pain, shortness of breath though he has had some shortness of breath in the past. No lightheadedness or dizziness. PAST MEDICAL HISTORY: 1. Atrial fibrillation. 2. AICD. 3. Coronary artery disease. MEDICATIONS: Current medications include: 1. Tegretol. 2. Protonix 40 milligrams daily. 3. Amiodarone 200 milligrams twice a day. 4. Lopressor 50 milligrams twice a day. 5. Levaquin. ALLERGIES: NO KNOWN DRUG ALLERGIES. PHYSICAL EXAMINATION: GENERAL: A Pleasant though somewhat confused gentleman in no distress. VITAL SIGNS: Afebrile, pulse 95, respiratory 20, blood pressure 120/77 satting 98% on 2 liters. NECK: No jugular venous distention. LUNGS: Decreased breath sounds at the bases. CARDIOVASCULAR: Regular rate and rhythm. No murmurs appreciated. ABDOMEN: Benign. EXTREMITIES: No edema. LABORATORY DATA: White count 13, hematocrit 27.6, platelets 268,000. Sodium 141, potassium 3.9, chloride 108, bicarbonate 24.3, BUN 8, creatinine 0.64. EKGS: EKG shows sinus rate at 91 with diffuse nonspecific S-T changes. Telemetry intermittently shows a wide complex tachyarrhythmia IMPRESSION: 1. Possible NSVT. The patient has had periodic wide complex tachyarrhythmia though he does have a defibrillator in place and it has not shocked him yet. I have asked the [employer] sales representative to interrogate the device. His office chart will be reviewed. He is already on amiodarone so suspect this is an ongoing problem. Likely we will continue on his current cardiac medical regimen but again the interrogation and his office chart will be reviewed to see if any further medical therapy needs to be added. He also has a chart history of atrial fibrillation but I do not see any anticoagulation and again this will be reviewed when I look through his chart and his interrogation. Thank you again for the opportunity to participate in this patient's care. MD TOO Schneider/CURLY /11:54 AM /2:17 PM
[2016-05-28] MEDS: LEVOFLOXACIN 750 MG TAB PO SCH (16:58)
--- NOTE | 2016-05-28 17:08 | EKG ---
Date Performed: 05/27/2016 Time Performed: 16:42:02 PTAGE: 75 years EKG: Sinus rhythm DIFFUSED NONSPECIFIC ST-T WAVE CHANGED. INTROVENTRICULAR CONDUCTION DISTURBANCE. Compared to prior t racing no significant change ABNORMAL ECG PREVIOUS TRACING : 05/23/2016 15.54 DOCTOR: Liam Pratt Interpretating Date/Time 05/28/2016 17:07:58
[2016-05-28] MEDS: ENOXAPARIN SODIUM 40 MG/0.4 ML SYRINGE SQ SCH (18:13)
[2016-05-28] MEDS: RESP: ALBUTEROL 2.5 MG/IPRATROPIUM 0.5 MG NEB (SCH) NEB ×2 (18:37→22:00)
[2016-05-28] MEDS: guaiFENesin E.R. 600 MG TAB PO SCH (20:04)
[2016-05-28] MEDS: traZODone HCL 100 MG TAB PO SCH (20:05)
[2016-05-28] MEDS: RESP: BUDESONIDE 0.5 MG/2 ML NEB NEB SCH (20:36)
[2016-05-28] MEDS: ZOLPIDEM TARTRATE 5 MG TAB PO PRN (23:17)
[2016-05-29] VITALS (19 sets, daily range): BP systolic 105–148; BP diastolic 65–77; PULSE 77–137; RESP 18–25; TEMP 97.4–98.8; O2SAT 96–99
[2016-05-29] MEDS ORDERED: METOPROLOL TARTRATE 5 MG/5 ML VIAL IV PUSH ONE ×2 (00:45→05:15)
[2016-05-29] MEDS: RESP: ALBUTEROL 2.5 MG/IPRATROPIUM 0.5 MG NEB (SCH) NEB ×2 (04:00→08:55)
[2016-05-29] MEDS: ceFAZolin 2 GM PREMIX 50 ML IV SCH ×3 (04:19→21:11)
[2016-05-29] MEDS: ACETAMINOPHEN 325MG/HYDROcodone 7.5MG/15ML UDC PO PRN ×2 (04:20→11:40)
[2016-05-29] MEDS: DOCUSATE SODIUM 100 MG CAP PO SCH ×2 (04:26→17:21)
[2016-05-29] MEDS: RESP: BUDESONIDE 0.5 MG/2 ML NEB NEB SCH ×4 (08:00→20:00)
[2016-05-29] MEDS: PANTOPRAZOLE SOD 40 MG DELAYED RELEASE TAB PO SCH (08:45)
[2016-05-29] MEDS: OXYBUTYNIN CHLORIDE 5 MG TAB PO SCH (08:45)
[2016-05-29] MEDS: METOPROLOL TARTRATE 50 MG TAB PO SCH ×2 (08:45→19:55)
[2016-05-29] MEDS: guaiFENesin E.R. 600 MG TAB PO SCH ×2 (08:45→21:00)
[2016-05-29] MEDS: AMIODARONE 200 MG TAB PO SCH ×2 (08:45→19:56)
[2016-05-29] MEDS: carBAMazepine 200 MG TAB PO SCH (08:45)
[2016-05-29] MEDS: POTASSIUM CHLORIDE 10 MEQ CONTROLLED RELEASE TAB PO SCH (08:45)
[2016-05-29] MEDS: COLLAGENASE OINT 30 GM TUBE TOP SCH (09:00)
--- NOTE | 2016-05-29 10:39 | HHI.PR ---
Subjective Remarks This is a pleasant 75 y/o male with CAD with AICD placement, Atrial Fibrillation , who came to ER with Altered Mental status, with the patient at this time but he is alert and oriented, during the last 72 hours he is been worsening his condition, his noted that the redness of the bilateral lower extremities around his toes patient refused transport was montero acted, he is been also febrile. as we know he has RA, Osteoporosis CAD, Status post NV, Atrial Fibrillation, Defibrillator in place, Patient followed by ID specialist, Vascular specialist, CTA with runoff confirm Severe PAD agree with antibiotic therapy no surgical or endovascular therapy. seen in his bedroom. Awaiting final by Podiatry specialist, as per ID specialist , with Diagnosis of Sepsis due to Bilateral Lower extremity Cellulitis,LLE mroe severe than RLE, Improving , on wound culture growing Beta Strep and Proteus, Recommended to continue Ancef, Continue Levaquin, if no further intervention recommended to continue Keflex and Levaquin to complete 10 days at discharge. 05/28 Stable seen in his bedroom in the presence of his , discussed with nurse Miss Harding yakelin. seen by application security specialist. Interrogated pacemaker. 05/29 seen in his bedroom, had increased tachycardia with Duoneb was removed and started on Ipratropium [place], followed by application security specialist recommended to increase dosages of Amiodarone and Metoprolol. IV Metoprolol for breakthrough. started on scheduled Solu-Medrol for his COPD with moderate exacerbation. Objective Vital Signs Date Time Temp Pulse Resp B/P Pulse Ox O2 Delivery O2 Flow Rate FiO2 05/29/16 09:00 96 Nasal Cannula 2.00 05/29/16 08:45 97.4 82 20 122/70 99 05/29/16 05:32 124 119/66 98 05/29/16 05:20 135 120/76 98 05/29/16 04:00 98.2 133 20 148/70 96 05/29/16 01:41 77 118/68 05/29/16 01:02 127 121/73 99 05/29/16 00:30 98.4 137 25 125/65 98 05/29/16 00:00 98.4 136 23 105/77 97 05/28/16 22:40 97.6 139 16 106/71 98 05/28/16 20:36 99 Nasal Cannula 2.00 05/28/16 20:16 128 05/28/16 16:00 97.7 92 20 169/82 97 05/28/16 12:00 98.5 87 20 167/79 97 I/O 05/28/16 05/28/16 05/28/16 05/29/16 05/29/16 05/29/16 07:00 15:00 23:00 07:00 15:00 23:00 Intake Total 480 ml 120 ml Balance 480 ml 120 ml Intake Oral 480 ml 120 ml # Voids 5 1 2 # Bowel Movements 0 Result Diagram: 05/28/16 0936 05/28/16 0936 Imaging Last Impressions Lower Extremity CT 05/25/16 0000 Signed Impressions: Service Date/Time: Wednesday, May 25, 2016 10:22 - CONCLUSION: 1. Diffuse subcutaneous edema. No abscess or convincing evidence of osteomyelitis. 2. Multifocal chronic arthropathy and chronic-appearing malalignment as above. There is mild arch collapse. Probably at least mild distal and insertional tendinosis of tibialis posterior tendon. The visualized portions of the tendon in the lower leg appear at least moderately attenuated. 3. Chronic appearing cystic changes within the distal fibula, most likely degenerative in etiology. 4. Shallow tunnellike tracks plantar aspects of the calcaneus and medial cuneiform, potentially degenerative or postoperative. 5. Diffuse vascular calcifications. Hira Davila MD Aorta w/Runoff CTA 05/25/16 0000 Signed Impressions: Service Date/Time: Wednesday, May 25, 2016 10:22 - CONCLUSION: 1. Severe bilateral infrapopliteal disease with no definite straight line runoff. There is potential short segment focal stenoses of significance involving the superficial femoral arteries bilaterally without segmental occlusion. 2. 4.1 cm infrarenal abdominal aortic aneurysm 3. Ectopic position of the right kidney. 4. Non-incarcerated abdominal wall hernia in the midline Juan Leal MD Foot X-Ray 05/24/16 0000 Signed Impressions: Service Date/Time: Tuesday, May 24, 2016 19:16 - CONCLUSION: Osteopenia, pes planus and other chronic findings as above. No fracture or acute bone destruction seen. Hira Davila MD Chest X-Ray 05/23/16 1531 Signed Impressions: Service Date/Time: Monday, May 23, 2016 15:42 - CONCLUSION: Interstitial prominence bilaterally of uncertain chronicity. Otherwise, no acute finding is identified. Hira Denny MD Head CT 05/23/16 0000 Signed Impressions: Service Date/Time: Monday, May 23, 2016 16:47 - CONCLUSION: 1. No acute intracranial abnormality is identified. There is generalized cerebral atrophy. 2. The periventricular white matter low attenuation and low density in the cricket may represent chronic microvascular ischemic change. 3. There is fluid within the mastoid air cells. Hira Denny MD Procedures No procedures performed to the patient. Other Results Laboratory Tests Test 05/27/16 05/28/16 07:15 09:36 Protein Corrected Calcium 7.9 MG/DL Total Protein 5.9 GM/DL White Blood Count 13.0 TH/MM3 Red Blood Count 3.10 MIL/MM3 Hemoglobin 9.1 GM/DL Hematocrit 27.6 % Mean Corpuscular Volume 89.2 FL Mean Corpuscular Hemoglobin 29.5 PG Mean Corpuscular Hemoglobin 33.1 % Concent Red Cell Distribution Width 15.2 % Platelet Count 268 TH/MM3 Mean Platelet Volume 8.8 FL Neutrophils (%) (Auto) % Lymphocytes (%) (Auto) % Monocytes (%) (Auto) % Eosinophils (%) (Auto) % Basophils (%) (Auto) % Neutrophils # (Auto) TH/MM3 Lymphocytes # (Auto) TH/MM3 Monocytes # (Auto) TH/MM3 Eosinophils # (Auto) TH/MM3 Basophils # (Auto) TH/MM3 CBC Comment AUTO DIFF Differential Total Cells 100 Counted Neutrophils % (Manual) 88 % Band Neutrophils % 1 % Lymphocytes % 8 % Monocytes % 2 % Eosinophils % 1 % Neutrophils # (Manual) 11.6 TH/MM3 Differential Comment FINAL DIFF MANUAL Toxic Granulation 1+ Platelet Estimate NORMAL Platelet Morphology Comment NORMAL Ovalocytes 1+ Hematology Comments Sodium Level 141 MEQ/L Potassium Level 3.9 MEQ/L Chloride Level 108 MEQ/L Carbon Dioxide Level 24.3 MEQ/L Anion Gap 9 MEQ/L Blood Urea Nitrogen 8 MG/DL Creatinine 0.64 MG/DL Estimat Glomerular Filtration 122 ML/MIN Rate Random Glucose 103 MG/DL Calcium Level 7.8 MG/DL Phosphorus Level 2.0 MG/DL Magnesium Level 2.0 MG/DL Objective Remarks GENERAL: No acute distress. SKIN: Warm. bilateral feet with ulcers, erythema. HEAD: Atraumatic. Normocephalic. EYES: Pupils equal and round. 3 mm. No scleral icterus. No injection or drainage. ENT: No nasal bleeding or discharge. Mucous membranes dry NECK: Supple without rigidity CARDIOVASCULAR: Regular rate and irregular rhythm. Systolic Murmur RESPIRATORY: Severe Decreased breath sounds no wheezing or crackles. GASTROINTESTINAL: Abdomen soft, non-tender, nondistended. Large ventral hernia MUSCULOSKELETAL: Edema of the left leg extending, bilateral hand and feet deformities, secondary to OA. dressed feet NEUROLOGICAL: Awake and alert to self. PSYCHIATRIC: Cooperative. Medications and IVs Current Medications Medications (Trade) Dose Ordered Sig/Corey Route Start Time Stop Time Status Last Admin (Ditropan) 5 mg DAILY PO 05/24/16 09:00 05/29/16 08:45 Trazodone HCl 150 mg 150 mg HS PO 05/23/16 21:00 05/28/16 20:05 (NS 1000 ml Inj) 1,000 ml @ 42 mls/hr [id number] IV 05/23/16 18:28 Hold 05/28/16 20:06 (NS Flush) 2 ml UNSCH PRN FLUSH 05/23/16 18:30 (NS Flush) 2 ml BID FLUSH 05/23/16 21:00 05/28/16 20:05 (Tylenol) 650 mg Q4H PRN PO 05/23/16 18:30 05/28/16 08:27 (Zofran Inj) 4 mg Q6H PRN IVP 05/23/16 18:30 05/23/16 20:04 (Reglan Inj) 5 mg Q6H PRN IV PUSH 05/23/16 18:30 05/23/16 20:03 (Dulcolax Supp) 10 mg DAILY PRN DC 05/23/16 18:30 (Colace) 100 mg Q12H PO 05/23/16 18:30 05/29/16 04:26 (Ambien) 5 mg HS PRN PO 05/23/16 18:30 05/28/16 23:17 (Lovenox Inj) 40 mg Q24H SQ 05/23/16 19:00 05/28/16 18:13 (Narcan Inj) 0.4 mg UNSCH PRN IV 05/23/16 18:30 (Pill Splitter) 1 ea UNSCH PRN OTHER 05/23/16 19:30 Acetaminophen/ Hydrocodone Bitart 15 ml 15 ml Q6H PRN PO 05/24/16 06:00 05/29/16 04:20 (Ancef 2 Gm Premix) 50 ml @ 100 mls/hr Q8H IV 05/24/16 14:00 05/29/16 04:19 (Levaquin) 750 mg DAILY@18 PO 05/25/16 18:00 05/28/16 16:58 (Santyl Oint) 1 applic DAILY TOP 05/26/16 09:00 05/28/16 08:53 (Cordarone) 200 mg BID PO 05/26/16 23:00 05/29/16 08:45 (TEGretol) 200 mg DAILY PO 05/27/16 09:00 05/29/16 08:45 (Lopressor) 50 mg BID PO 05/26/16 23:00 05/29/16 08:45 (Protonix) 40 mg DAILY PO 05/27/16 09:00 05/29/16 08:45 (KCl) 10 meq DAILY PO 05/27/16 09:00 05/29/16 08:45 (Mucinex Er) 600 mg BID PO 05/28/16 21:00 05/29/16 08:45 A/P Problem List: (1) Cellulitis of left leg ICD Code: L03.116 (2) Sepsis ICD Code: A41.9 Assessment and Plan 1. Acute Toxic Metabolic Encephalopathy secondary to Sepsis and cellulitis, Improved. 2. Bilateral Leg Cellulitis initially on Cefazolin and Zosyn, blood cultures negative, and wound culture positive for Proteus Mirabilis pansensitive, MRI did not found Osteomyelitis, seen by Vascular specialist found Severe PAD on CTA with runoff no further surgical treatment. as per ID recommended to switch to Levaquin by mouth and continue Cefazolin, Podiatry specialist will attempt to perform an I and D at bedside. continue antibiotics by now. 3. Sepsis afebrile, tachycardia, Leukocytosis. follow blood culture continue antibiotics Improving. continue Cefazolin and Levofloxacin. okay to discharge on Keflex and Levaquin. as Per ID specialist. 4. Atrial Fibrillation status post AICD not on anticoagulation. had since yesterday NSVT given Metoprolol application security specialist assistance appreciated. increased dosages of Metoprolol and Amiodarone by mouth and IV Metoprolol for breakthrough. Pacemaker interrogated and working well. 5. CAD by history 6. Osteoporosis 7. electrolyte derangement replaced. DVT prophylaxis with Lovenox Discussed with patient and his in the room. Code Status Full Code Discharge Planning Not ye cleared by specialists. Problem Qualifiers (1) Sepsis: Qualified Code: A41.9 - Sepsis, due to unspecified organism Mario Suarez MD May 29, 2016 10:39
--- NOTE | 2016-05-29 12:20 | RADRPT ---
EXAM DATE/TIME: 05/29/2016 10:57 [place] COMPARISON: No previous studies available for comparison. INDICATIONS : Congestion. MEDICAL HISTORY : Hypertension. A-fib. SURGICAL HISTORY : Pacemaker. ENCOUNTER: Initial ACUITY: 4 - 6 days PAIN SCORE: 0/10 LOCATION: Bilateral chest FINDINGS: There is a pacing device in place from the left subclavian approach. The heart size is normal. There is increased density in the perihilar regions and bases bilaterally being worse on the right. There i s diffuse increased interstitial markings. Bilateral pleural effusions are present. CONCLUSION: Diffuse interstitial disease and more focal density in the perihilar regions and bases and bilateral effusions likely related to persistent pulmonary edema. Hira Carroll MD on May 29, 2016 at 12:15 Board Certified Radiologist. This report was verified electronically.
[2016-05-29] MEDS ORDERED: METOPROLOL TARTRATE 5 MG/5 ML VIAL ONE (13:50)
[2016-05-29] MEDS: SODIUM CHLORIDE 0.9% FLUSH 5 ML FLUSH FLUSH SCH ×2 (13:59→21:00)
[2016-05-29] MEDS: methylPREDNISolone SOD SUCC 40 MG/1 ML VIAL IV PUSH SCH ×2 (13:59→21:12)
--- NOTE | 2016-05-29 14:26 | PD.CARD.PN ---
Subjective Subjective Remarks Pt asymptomatic, continues to have fairly slow/stable VT in the 130s. Objective Medications Administered Medications Medications (Trade) Dose Ordered Sig/Corey Route PRN Reason Start Time Stop Time Status Last Admin Dose Admin Oxybutynin Chloride (Ditropan) 5 mg DAILY PO 05/24/16 09:00 05/29/16 08:45 Trazodone HCl (Desyrel) 150 mg HS PO 05/23/16 21:00 05/28/16 20:05 IV Flush (NS Flush) 2 ml BID FLUSH 05/23/16 21:00 05/29/16 13:59 Acetaminophen (Tylenol) 650 mg Q4H PRN PO TEMP > 100.4 05/23/16 18:30 05/28/16 08:27 Ondansetron HCl (Zofran Inj) 4 mg Q6H PRN IVP NAUSEA OR VOMITING 05/23/16 18:30 05/23/16 20:04 Metoclopramide HCl (Reglan Inj) 5 mg Q6H PRN IV PUSH NAUSEA OR VOMITING 05/23/16 18:30 05/23/16 20:03 Docusate Sodium (Colace) 100 mg Q12H PO 05/23/16 18:30 05/29/16 04:26 Zolpidem Tartrate (Ambien) 5 mg HS PRN PO INSOMNIA 05/23/16 18:30 05/28/16 23:17 Enoxaparin Sodium (Lovenox Inj) 40 mg Q24H SQ 05/23/16 19:00 05/28/16 18:13 Acetaminophen/ Hydrocodone Bitart 15 ml 15 ml Q6H PRN PO PAIN 1-10 05/24/16 06:00 05/29/16 11:40 Cefazolin Sodium/ Dextrose (Ancef 2 Gm Premix) 50 ml @ 100 mls/hr Q8H IV 05/24/16 14:00 05/29/16 13:59 Levofloxacin (Levaquin) 750 mg DAILY@18 PO 05/25/16 18:00 05/28/16 16:58 Collagenase (Santyl Oint) 1 applic DAILY TOP 05/26/16 09:00 05/28/16 08:53 Amiodarone HCl (Cordarone) 200 mg BID PO 05/26/16 23:00 05/29/16 08:45 Carbamazepine (TEGretol) 200 mg DAILY PO 05/27/16 09:00 05/29/16 08:45 Metoprolol Tartrate (Lopressor) 50 mg BID PO 05/26/16 23:00 05/29/16 08:45 Pantoprazole Sodium (Protonix) 40 mg DAILY PO 05/27/16 09:00 05/29/16 08:45 Potassium Chloride (KCl) 10 meq DAILY PO 05/27/16 09:00 05/29/16 08:45 Guaifenesin (Mucinex Er) 600 mg BID PO 05/28/16 21:00 05/29/16 08:45 Methylprednisolone Sodium Succinate (SoluMEDROL INJ) 40 mg Q8HR IV PUSH 05/29/16 14:00 05/29/16 13:59 Vital Signs / I&O Vital Signs Date Time Temp Pulse Resp B/P Pulse Ox O2 Delivery O2 Flow Rate FiO2 05/29/16 12:30 98.8 88 20 136/67 99 05/29/16 09:00 96 Nasal Cannula 2.00 05/29/16 08:45 97.4 82 20 122/70 99 05/29/16 05:32 124 119/66 98 05/29/16 05:20 135 120/76 98 05/29/16 04:00 98.2 133 20 148/70 96 05/29/16 01:41 77 118/68 05/29/16 01:02 127 121/73 99 05/29/16 00:30 98.4 137 25 125/65 98 05/29/16 00:00 98.4 136 23 105/77 97 05/28/16 22:40 97.6 139 16 106/71 98 05/28/16 20:36 99 Nasal Cannula 2.00 05/28/16 20:16 128 05/28/16 16:00 97.7 92 20 169/82 97 I/O 05/28/16 05/28/16 05/28/16 05/29/16 05/29/16 05/29/16 07:00 15:00 23:00 07:00 15:00 23:00 Intake Total 480 ml 120 ml Balance 480 ml 120 ml Intake Oral 480 ml 120 ml # Voids 5 1 2 # Bowel Movements 0 Physical Exam GENERAL: This is a well-nourished, well-developed patient, in no apparent distress. CARDIOVASCULAR: Rapid rate and rhythm without murmurs, gallops, or rubs. RESPIRATORY: Clear to auscultation. Breath sounds equal bilaterally. No wheezes , rales, or rhonchi. GASTROINTESTINAL: Abdomen soft, non-tender, nondistended. Normal active bowel sounds MUSCULOSKELETAL: Extremities without clubbing, cyanosis, or edema. NEURO: Alert & Oriented x4 to person, place, time, situation. Moves all ext x4 Imaging Last Impressions Lower Extremity CT 05/25/16 0000 Signed Impressions: Service Date/Time: Wednesday, May 25, 2016 10:22 - CONCLUSION: 1. Diffuse subcutaneous edema. No abscess or convincing evidence of osteomyelitis. 2. Multifocal chronic arthropathy and chronic-appearing malalignment as above. There is mild arch collapse. Probably at least mild distal and insertional tendinosis of tibialis posterior tendon. The visualized portions of the tendon in the lower leg appear at least moderately attenuated. 3. Chronic appearing cystic changes within the distal fibula, most likely degenerative in etiology. 4. Shallow tunnellike tracks plantar aspects of the calcaneus and medial cuneiform, potentially degenerative or postoperative. 5. Diffuse vascular calcifications. Hira Davila MD Aorta w/Runoff CTA 05/25/16 Signed Impressions: Service Date/Time: Wednesday, May 25, 2016 10:22 - CONCLUSION: 1. Severe bilateral infrapopliteal disease with no definite straight line runoff. There is potential short segment focal stenoses of significance involving the superficial femoral arteries bilaterally without segmental occlusion. 2. 4.1 cm infrarenal abdominal aortic aneurysm 3. Ectopic position of the right kidney. 4. Non-incarcerated abdominal wall hernia in the midline Juan Leal MD Foot X-Ray 05/24/16 0000 Signed Impressions: Service Date/Time: Tuesday, May 24, 2016 19:16 - CONCLUSION: Osteopenia, pes planus and other chronic findings as above. No fracture or acute bone destruction seen. Hira Davila MD Chest X-Ray 05/23/16 1531 Signed Impressions: Service Date/Time: Monday, May 23, 2016 15:42 - CONCLUSION: Interstitial prominence bilaterally of uncertain chronicity. Otherwise, no acute finding is identified. Hira Denny MD Head CT 05/23/16 0000 Signed Impressions: Service Date/Time: Monday, May 23, 2016 16:47 - CONCLUSION: 1. No acute intracranial abnormality is identified. There is generalized cerebral atrophy. 2. The periventricular white matter low attenuation and low density in the cricket may represent chronic microvascular ischemic change. 3. There is fluid within the mastoid air cells. Hira Denny MD Assessment and Plan Problem List: (1) VT (ventricular tachycardia) Assessment and Plan: slow/stable, AICD hasn't had to ATP or shock; will increase metoprolol and oral amiodarone w/ IV lopressor for breakthrough which has been effective thus far. (2) Cellulitis of left leg (3) Sepsis (4) Delirium (5) AICD (automatic cardioverter/defibrillator) present Assessment and Plan there is a chart hx of AFIB, will review office chart to see if true and status of anticoagulation, though cognitive challenges make make him a poor candidate. Problem Qualifiers (1) Sepsis: Qualified Code: A41.9 - Sepsis, due to unspecified organism Ciro Manning MD May 29, 2016 14:26
[2016-05-29] MEDS: METOPROLOL TARTRATE 5 MG/5 ML VIAL IV PUSH PRN ×2 (15:03→21:13)
[2016-05-29] MEDS: RESP: IPRATROPIUM 0.5 MG/2.5 ML NEB NEB SCH ×2 (15:40→23:42)
[2016-05-29] MEDS: LEVOFLOXACIN 750 MG TAB PO SCH (17:21)
[2016-05-29] MEDS: ENOXAPARIN SODIUM 40 MG/0.4 ML SYRINGE SQ SCH (18:20)
[2016-05-29] MEDS: traZODone HCL 100 MG TAB PO SCH (19:56)
--- NOTE | 2016-05-29 20:36 | PD.POD ---
Subjective Podiatric Problems L ankle wound and cellulitis R foot ulcer Past Med/Surg/Social History Social History Smoking Status: Former Smoker Objective Vital Signs Vital Signs Date Time Temp Pulse Resp B/P Pulse Ox O2 Delivery O2 Flow Rate FiO2 05/29/16 17:52 97.7 90 18 122/74 97 05/29/16 15:13 82 144/76 05/29/16 15:05 133 138/70 05/29/16 12:30 98.8 88 20 136/67 99 05/29/16 09:00 96 Nasal Cannula 2.00 05/29/16 08:45 97.4 82 20 122/70 99 05/29/16 05:32 124 119/66 98 05/29/16 05:20 135 120/76 98 05/29/16 04:00 98.2 133 20 148/70 96 05/29/16 01:41 77 118/68 05/29/16 01:02 127 121/73 99 05/29/16 00:30 98.4 137 25 125/65 98 05/29/16 00:00 98.4 136 23 105/77 97 05/28/16 22:40 97.6 139 16 106/71 98 05/28/16 20:36 99 Nasal Cannula 2.00 Coded Allergies: MRI PRECAUTION (Unverified Allergy, Unknown, DEFIRILLATOR, 05/24/16) [employer] MODEL #[id number], SERIAL # [id number] Objective Remarks Laboratory Tests Test 05/23/16 05/23/16 05/23/16 05/23/16 15:41 16:05 17:15 18:30 Urine Color YELLOW Urine Turbidity CLEAR Urine pH 5.5 Urine Specific [place] 1.024 Urine Protein 30 mg/dL Urine Glucose (UA) NEG mg/dL Urine Ketones 10 mg/dL Urine Occult Blood TRACE Urine Nitrite NEG Urine Bilirubin NEG Urine Urobilinogen LESS THAN 2.0 MG/DL Urine Leukocyte Esterase NEG Urine RBC 2 /hpf Urine WBC 1 /hpf Urine Sperm RARE Microscopic Urinalysis Comment CATH-CULT NOT IND Lactic Acid Level 1.6 mmol/L Troponin I 0.05 NG/ML Lipase 42 U/L Free Thyroxine 1.26 NG/DL Thyroid Stimulating Hormone 2.040 uIU/ML 3rd Gen Hemoglobin A1c 4.2 % Blood Type O POSITIVE Antibody Screen NEGATIVE Blood Bank Comment Test 05/24/16 04:01 White Blood Count 12.0 TH/MM3 Red Blood Count 2.51 MIL/MM3 Hemoglobin 7.5 GM/DL Hematocrit 23.9 % Mean Corpuscular Volume 95.2 FL Mean Corpuscular Hemoglobin 30.0 PG Mean Corpuscular Hemoglobin 31.5 % Concent Red Cell Distribution Width 14.7 % Platelet Count 171 TH/MM3 Mean Platelet Volume 8.7 FL Neutrophils (%) (Auto) 87.0 % Lymphocytes (%) (Auto) 4.3 % Monocytes (%) (Auto) 8.2 % Eosinophils (%) (Auto) 0.1 % Basophils (%) (Auto) 0.4 % Neutrophils # (Auto) 10.4 TH/MM3 Lymphocytes # (Auto) 0.5 TH/MM3 Monocytes # (Auto) 1.0 TH/MM3 Eosinophils # (Auto) 0.0 TH/MM3 Basophils # (Auto) 0.1 TH/MM3 CBC Comment DIFF FINAL Differential Comment Prothrombin Time 12.5 SEC Prothromb Time International 1.1 RATIO Ratio Sodium Level 140 MEQ/L Potassium Level 3.4 MEQ/L Chloride Level 110 MEQ/L Carbon Dioxide Level 19.8 MEQ/L Anion Gap 10 MEQ/L Blood Urea Nitrogen 22 MG/DL Creatinine 0.78 MG/DL Estimat Glomerular Filtration 97 ML/MIN Rate Random Glucose 79 MG/DL Calcium Level 7.6 MG/DL Total Bilirubin 0.3 MG/DL Direct Bilirubin 0.1 MG/DL Indirect Bilirubin 0.2 MG/DL Aspartate Amino Transf 24 U/L (AST/SGOT) Alanine Aminotransferase 14 U/L (ALT/SGPT) Alkaline Phosphatase 49 U/L Total Protein 5.9 GM/DL Albumin 2.2 GM/DL Triglycerides Level 75 MG/DL Cholesterol Level 98 MG/DL LDL Cholesterol 50 MG/DL HDL Cholesterol 33.2 MG/DL Cholesterol/HDL Ratio 2.95 RATIO Laboratory Tests Test 05/23/16 05/23/16 05/23/16 05/23/16 15:41 16:05 17:15 18:30 Urine Color YELLOW Urine Turbidity CLEAR Urine pH 5.5 Urine Specific [place] 1.024 Urine Protein 30 mg/dL Urine Glucose (UA) NEG mg/dL Urine Ketones 10 mg/dL Urine Occult Blood TRACE Urine Nitrite NEG Urine Bilirubin NEG Urine Urobilinogen LESS THAN 2.0 MG/DL Urine Leukocyte Esterase NEG Urine RBC 2 /hpf Urine WBC 1 /hpf Urine Sperm RARE Microscopic Urinalysis Comment CATH-CULT NOT IND Lactic Acid Level 1.6 mmol/L Troponin I 0.05 NG/ML Lipase 42 U/L Free Thyroxine 1.26 NG/DL Thyroid Stimulating Hormone 2.040 uIU/ML 3rd Gen Hemoglobin A1c 4.2 % Blood Type O POSITIVE Antibody Screen NEGATIVE Blood Bank Comment Test 05/24/16 04:01 White Blood Count 12.0 TH/MM3 Red Blood Count 2.51 MIL/MM3 Hemoglobin 7.5 GM/DL Hematocrit 23.9 % Mean Corpuscular Volume 95.2 FL Mean Corpuscular Hemoglobin 30.0 PG Mean Corpuscular Hemoglobin 31.5 % Concent Red Cell Distribution Width 14.7 % Platelet Count 171 TH/MM3 Mean Platelet Volume 8.7 FL Neutrophils (%) (Auto) 87.0 % Lymphocytes (%) (Auto) 4.3 % Monocytes (%) (Auto) 8.2 % Eosinophils (%) (Auto) 0.1 % Basophils (%) (Auto) 0.4 % Neutrophils # (Auto) 10.4 TH/MM3 Lymphocytes # (Auto) 0.5 TH/MM3 Monocytes # (Auto) 1.0 TH/MM3 Eosinophils # (Auto) 0.0 TH/MM3 Basophils # (Auto) 0.1 TH/MM3 CBC Comment DIFF FINAL Differential Comment Prothrombin Time 12.5 SEC Prothromb Time International 1.1 RATIO Ratio Sodium Level 140 MEQ/L Potassium Level 3.4 MEQ/L Chloride Level 110 MEQ/L Carbon Dioxide Level 19.8 MEQ/L Anion Gap 10 MEQ/L Blood Urea Nitrogen 22 MG/DL Creatinine 0.78 MG/DL Estimat Glomerular Filtration 97 ML/MIN Rate Random Glucose 79 MG/DL Calcium Level 7.6 MG/DL Total Bilirubin 0.3 MG/DL Direct Bilirubin 0.1 MG/DL Indirect Bilirubin 0.2 MG/DL Aspartate Amino Transf 24 U/L (AST/SGOT) Alanine Aminotransferase 14 U/L (ALT/SGPT) Alkaline Phosphatase 49 U/L Total Protein 5.9 GM/DL Albumin 2.2 GM/DL Triglycerides Level 75 MG/DL Cholesterol Level 98 MG/DL LDL Cholesterol 50 MG/DL HDL Cholesterol 33.2 MG/DL Cholesterol/HDL Ratio 2.95 RATIO Assessment & Plan A/P L ankle wound and cellulitis R foot ulcer Continue bandage changes as ordered L ankle with santyl and R foot betadine wet to dry per nursing daily. Tried to see patient today and nurse stated that as soon as I got there, the patient had been transferred to 2nd floor [place]. Dr Allan will assess wound sometime this week. Keep supplies available as ordered. Discussed with patient and yesterday that attempt will be made to stabilize the wounds via local wound care and IV antibiotics, but amputation may be in his future if things progress Continue IV antibiotics Stewart Vidal DPM May 29, 2016 20:36
--- NOTE | 2016-05-29 21:37 | EKG ---
Date Performed: 05/28/2016 Time Performed: 23:37:48 PTAGE: 75 years EKG: Wide complex tachycardia that is regular with a rate of 134,cannot exclude ventricular tach ycardia as probable diagnosis VS supraventricular tachycardia with P-wave not evident. Marked wide QR S complex with LBBB pattern and left axis deviation. Diffused ST T changes maybe due to the very wide complex QRS. Since previous tracing 05/27/2016, this wide complex tachycardia is new. This is ventric ular tachycardia till proven otherwise although it could be supraventricular with wide QRS. Clinical correlation and prior tracing is strongly recommended. Abnormal ECG PREVIOUS TRACING : 05/27/2016 16.42 DOCTOR: Liam Pratt Interpretating Date/Time 05/29/2016 21:55:43
--- NOTE | 2016-05-29 21:45 | EKG ---
Date Performed: 05/29/2016 Time Performed: 00:34:16 PTAGE: 75 years EKG: Wide complex tachycardia with rate of 134 with LBBB Left axis deviation pattern. No definat e P wave are seen. This is ventricular tachycardia till proven otherwise although cannot exclude a hoyt praventricular tachycardia with no P waves that are easily seen. Since previous tracing 05/28/2016, th ere is no change. Clinical correlation is strongly recommended Abnormal ECG PREVIOUS TRACING : 05/28/2016 23.37 DOCTOR: Liam Pratt Interpretating Date/Time 05/29/2016 22:02:54
[2016-05-29] MEDS ORDERED: AMIODARONE INJ 450 MG in D5W (EXCEL BAG) 241 ML IV SCH (23:00)
[2016-05-29] MEDS ORDERED: AMIODARONE 150 MG/D5W 97 ML BOLUS 10 MINUTES IV ONE ×2 (23:00)
[2016-05-30] VITALS (17 sets, daily range): BP systolic 117–148; BP diastolic 70–88; PULSE 56–126; RESP 18; TEMP 97.4–98.4; O2SAT 97–100
[2016-05-30] MEDS: RESP: IPRATROPIUM 0.5 MG/2.5 ML NEB NEB SCH ×7 (05:26→23:48)
[2016-05-30] MEDS: methylPREDNISolone SOD SUCC 40 MG/1 ML VIAL IV PUSH SCH ×3 (05:43→20:35)
[2016-05-30] MEDS: ACETAMINOPHEN 325MG/HYDROcodone 7.5MG/15ML UDC PO PRN ×3 (05:44→18:04)
[2016-05-30] MEDS: ceFAZolin 2 GM PREMIX 50 ML IV SCH ×3 (05:44→20:35)
[2016-05-30] MEDS: DOCUSATE SODIUM 100 MG CAP PO SCH ×2 (05:44→17:52)
[2016-05-30 07:26] LABS: MAGNESIUM 2.4 MG/DL (1.5-2.5)
--- NOTE | 2016-05-30 07:40 | HHI.PR ---
Subjective Remarks This is a pleasant 75 y/o male with CAD with AICD placement, Atrial Fibrillation , who came to ER with Altered Mental status, with the patient at this time but he is alert and oriented, during the last 72 hours he is been worsening his condition, his noted that the redness of the bilateral lower extremities around his toes patient refused transport was kylah gilbert, he is been also febrile. as we know he has RA, Osteoporosis CAD, Status post CT, Atrial Fibrillation, Defibrillator in place, Patient followed by ID specialist, Vascular specialist, CTA with runoff confirm Severe PAD agree with antibiotic therapy no surgical or endovascular therapy. seen in his bedroom. Awaiting final by Podiatry specialist, as per ID specialist , with Diagnosis of Sepsis due to Bilateral Lower extremity Cellulitis,LLE mroe severe than RLE, Improving , on wound culture growing Beta Strep and Proteus, Recommended to continue Ancef, Continue Levaquin, if no further intervention recommended to continue Keflex and Levaquin to complete 10 days at discharge. 05/28 Stable seen in his bedroom in the presence of his , discussed with nurse Miss Meaghan hamlin. seen by computer specialist. Interrogated pacemaker. 05/29 seen in his bedroom, had increased tachycardia with Duoneb was removed and started on Ipratropium [place], followed by computer specialist recommended to increase dosages of Amiodarone and Metoprolol. IV Metoprolol for breakthrough. started on scheduled Solu-Medrol for his COPD with moderate exacerbation. 05/30 Patient stable seen in his bedroom and discussed with him and his , also with nurse Miss Smith, as per [employer] Doctor Ciro Manning he discussed with the patient and and with Diagnosis of Refractory Ventricular Tachycardia recommended for Hospice care the patient accepted to be DNR and asked for Hospice Consult. placed an Order for Discharge to Home with Hospice to start Discharge and will follow during the afternoon to complete discharge orders. Objective Vital Signs Date Time Temp Pulse Resp B/P Pulse Ox O2 Delivery O2 Flow Rate FiO2 05/30/16 04:39 97.4 62 136/77 97 05/30/16 03:00 64 05/30/16 00:00 97.8 125 119/87 97 05/29/16 23:45 99 Nasal Cannula 1.00 05/29/16 23:00 130 05/29/16 20:00 97.6 136 111/76 99 3/12/17 19:00 129 05/29/16 17:52 97.7 90 18 122/74 97 05/29/16 15:13 82 144/76 05/29/16 15:05 133 138/70 05/29/16 12:30 98.8 88 20 136/67 99 05/29/16 09:00 96 Nasal Cannula 2.00 05/29/16 08:45 97.4 82 20 122/70 99 I/O 05/29/16 05/29/16 05/29/16 05/30/16 05/30/16 05/30/16 07:00 15:00 23:00 07:00 15:00 23:00 Intake Total 120 ml Balance 120 ml Intake Oral 120 ml # Voids 2 3 2 Result Diagram: 05/28/16 0936 05/30/16 0559 Imaging Last Impressions Lower Extremity CT 05/25/16 0000 Signed Impressions: Service Date/Time: Wednesday, May 25, 2016 10:22 - CONCLUSION: 1. Diffuse subcutaneous edema. No abscess or convincing evidence of osteomyelitis. 2. Multifocal chronic arthropathy and chronic-appearing malalignment as above. There is mild arch collapse. Probably at least mild distal and insertional tendinosis of tibialis posterior tendon. The visualized portions of the tendon in the lower leg appear at least moderately attenuated. 3. Chronic appearing cystic changes within the distal fibula, most likely degenerative in etiology. 4. Shallow tunnellike tracks plantar aspects of the calcaneus and medial cuneiform, potentially degenerative or postoperative. 5. Diffuse vascular calcifications. Hria Davila MD Aorta w/Runoff CTA 05/25/16 0000 Signed Impressions: Service Date/Time: Wednesday, May 25, 2016 10:22 - CONCLUSION: 1. Severe bilateral infrapopliteal disease with no definite straight line runoff. There is potential short segment focal stenoses of significance involving the superficial femoral arteries bilaterally without segmental occlusion. 2. 4.1 cm infrarenal abdominal aortic aneurysm 3. Ectopic position of the right kidney. 4. Non-incarcerated abdominal wall hernia in the midline Juan Leal MD Foot X-Ray 05/24/16 0000 Signed Impressions: Service Date/Time: Tuesday, May 24, 2016 19:16 - CONCLUSION: Osteopenia, pes planus and other chronic findings as above. No fracture or acute bone destruction seen. Hira Davila MD Chest X-Ray 05/23/16 1531 Signed Impressions: Service Date/Time: Monday, May 23, 2016 15:42 - CONCLUSION: Interstitial prominence bilaterally of uncertain chronicity. Otherwise, no acute finding is identified. Hira Denny MD Head CT 05/23/16 0000 Signed Impressions: Service Date/Time: Monday, May 23, 2016 16:47 - CONCLUSION: 1. No acute intracranial abnormality is identified. There is generalized cerebral atrophy. 2. The periventricular white matter low attenuation and low density in the cricket may represent chronic microvascular ischemic change. 3. There is fluid within the mastoid air cells. Hira Denny MD Procedures No procedures performed to the patient. Other Results Laboratory Tests Test 05/27/16 05/28/16 05/30/16 07:15 09:36 05:59 Protein Corrected Calcium 7.9 MG/DL Total Protein 5.9 GM/DL White Blood Count 13.0 TH/MM3 Red Blood Count 3.10 MIL/MM3 Hemoglobin 9.1 GM/DL Hematocrit 27.6 % Mean Corpuscular Volume 89.2 FL Mean Corpuscular Hemoglobin 29.5 PG Mean Corpuscular Hemoglobin 33.1 % Concent Red Cell Distribution Width 15.2 % Platelet Count 268 TH/MM3 Mean Platelet Volume 8.8 FL Neutrophils (%) (Auto) % Lymphocytes (%) (Auto) % Monocytes (%) (Auto) % Eosinophils (%) (Auto) % Basophils (%) (Auto) % Neutrophils # (Auto) TH/MM3 Lymphocytes # (Auto) TH/MM3 Monocytes # (Auto) TH/MM3 Eosinophils # (Auto) TH/MM3 Basophils # (Auto) TH/MM3 CBC Comment AUTO DIFF Differential Total Cells 100 Counted Neutrophils % (Manual) 88 % Band Neutrophils % 1 % Lymphocytes % 8 % Monocytes % 2 % Eosinophils % 1 % Neutrophils # (Manual) 11.6 TH/MM3 Differential Comment FINAL DIFF MANUAL Toxic Granulation 1+ Platelet Estimate NORMAL Platelet Morphology Comment NORMAL Ovalocytes 1+ Hematology Comments Sodium Level 142 MEQ/L Potassium Level 4.0 MEQ/L Chloride Level 109 MEQ/L Carbon Dioxide Level 23.0 MEQ/L Anion Gap 10 MEQ/L Blood Urea Nitrogen 16 MG/DL Creatinine 0.66 MG/DL Estimat Glomerular Filtration 118 ML/MIN Rate Random Glucose 134 MG/DL Calcium Level 8.3 MG/DL Phosphorus Level 2.9 MG/DL Magnesium Level 2.4 MG/DL Objective Remarks GENERAL: No acute distress. SKIN: Warm. bilateral feet with ulcers, erythema. HEAD: Atraumatic. Normocephalic. EYES: Pupils equal and round. 3 mm. No scleral icterus. No injection or drainage. ENT: No nasal bleeding or discharge. Mucous membranes dry NECK: Supple without rigidity CARDIOVASCULAR: Regular rate and irregular rhythm. Systolic Murmur RESPIRATORY: Severe Decreased breath sounds no wheezing or crackles. GASTROINTESTINAL: Abdomen soft, non-tender, nondistended. Large ventral hernia MUSCULOSKELETAL: Edema of the left leg extending, bilateral hand and feet deformities, secondary to OA. dressed feet NEUROLOGICAL: Awake and alert to self. PSYCHIATRIC: Cooperative. Medications and IVs Current Medications Medications (Trade) Dose Ordered Sig/Corey Route Start Time Stop Time Status Last Admin (Ditropan) 5 mg DAILY PO 05/24/16 09:00 05/29/16 08:45 (Desyrel) 150 mg HS PO 05/23/16 21:00 05/29/16 19:56 (NS Flush) 2 ml UNSCH PRN FLUSH 05/23/16 18:30 (NS Flush) 2 ml BID FLUSH 05/23/16 21:00 05/29/16 21:00 (Tylenol) 650 mg Q4H PRN PO 05/23/16 18:30 05/28/16 08:27 (Zofran Inj) 4 mg Q6H PRN IVP 05/23/16 18:30 05/23/16 20:04 (Reglan Inj) 5 mg Q6H PRN IV PUSH 05/23/16 18:30 05/23/16 20:03 (Dulcolax Supp) 10 mg DAILY PRN SD 05/23/16 18:30 (Colace) 100 mg Q12H PO 05/23/16 18:30 05/30/16 05:44 (Ambien) 5 mg HS PRN PO 05/23/16 18:30 05/28/16 23:17 (Lovenox Inj) 40 mg Q24H SQ 05/23/16 19:00 05/29/16 18:20 (Narcan Inj) 0.4 mg UNSCH PRN IV 05/23/16 18:30 (Pill Splitter) 1 ea UNSCH PRN OTHER 05/23/16 19:30 Acetaminophen/ Hydrocodone Bitart 15 ml 15 ml Q6H PRN PO 05/24/16 06:00 05/30/16 05:44 (Ancef 2 Gm Premix) 50 ml @ 100 mls/hr Q8H IV 05/24/16 14:00 05/30/16 05:44 (Levaquin) 750 mg DAILY@18 PO 05/25/16 18:00 05/29/16 17:21 (Santyl Oint) 1 applic DAILY TOP 05/26/16 09:00 05/28/16 08:53 (TEGretol) 200 mg DAILY PO 05/27/16 09:00 05/29/16 08:45 (Protonix) 40 mg DAILY PO 05/27/16 09:00 05/29/16 08:45 (KCl) 10 meq DAILY PO 05/27/16 09:00 05/29/16 08:45 (Mucinex Er) 600 mg BID PO 05/28/16 21:00 05/29/16 08:45 (SoluMEDROL INJ) 40 mg Q8HR IV PUSH 05/29/16 14:00 05/30/16 05:43 (Cordarone) 400 mg BID PO 05/29/16 21:00 05/29/16 19:56 (Lopressor) 100 mg BID PO 05/29/16 21:00 05/29/16 19:55 Metoprolol Tartrate 5 mg 5 mg Q6H PRN IV PUSH 05/29/16 14:15 05/29/16 21:13 (Cordarone Inj/ D5W ([place]) Inj) 250 ml @ 0 mls/hr CONTINUOUS IV 05/29/16 23:00 05/29/16 23:15 A/P Problem List: (1) Cellulitis of left leg ICD Code: L03.116 (2) Sepsis ICD Code: A41.9 Assessment and Plan 1. Acute Toxic Metabolic Encephalopathy secondary to Sepsis and cellulitis, Improved. 2. Bilateral Leg Cellulitis initially on Cefazolin and Zosyn, blood cultures negative, and wound culture positive for Proteus Mirabilis pansensitive, MRI did not found Osteomyelitis, seen by Vascular specialist found Severe PAD on CTA with runoff no further surgical treatment. as per ID recommended to switch to Levaquin by mouth and continue Cefazolin, Podiatry specialist will attempt to perform an I and D at bedside. continue antibiotics by now. 3. Sepsis afebrile, tachycardia, Leukocytosis. follow blood culture continue antibiotics Improving. continue Cefazolin and Levofloxacin. okay to discharge on Keflex and Levaquin. as Per ID specialist. 4. Atrial Fibrillation status post AICD not on anticoagulation. had since yesterday NSVT given initially given Metoprolol by mouth and IV, then increased dosages of Amiodarone by computer specialist also increased Metoprolol by mouth, then started on Amiodarone drip now with Diagnosis of Refractory Ventricular Tachycardia discussed with patient and , he accepted to be DNR and will go home with Hospice. computer specialist assistance appreciated. 5. CAD by history 6. Osteoporosis 7. electrolyte derangement replaced. DVT prophylaxis with Lovenox Discussed with patient and his in the room. also with nurse Miss Code Status DNR Discharge Planning Awaiting meeting with Hospice specialist to discharge Home with Hospice. Problem Qualifiers (1) Sepsis: Qualified Code: A41.9 - Sepsis, due to unspecified organism Mario Suarez MD May 30, 2016 07:40
[2016-05-30] MEDS: RESP: BUDESONIDE 0.5 MG/2 ML NEB NEB SCH ×2 (08:00→21:09)
[2016-05-30] MEDS: PANTOPRAZOLE SOD 40 MG DELAYED RELEASE TAB PO SCH (08:12)
[2016-05-30] MEDS: POTASSIUM CHLORIDE 10 MEQ CONTROLLED RELEASE TAB PO SCH (08:13)
[2016-05-30] MEDS: SODIUM CHLORIDE 0.9% FLUSH 5 ML FLUSH FLUSH SCH ×2 (08:13→20:35)
[2016-05-30] MEDS: AMIODARONE 200 MG TAB PO SCH ×2 (08:13→20:34)
[2016-05-30] MEDS: OXYBUTYNIN CHLORIDE 5 MG TAB PO SCH (08:13)
[2016-05-30] MEDS: METOPROLOL TARTRATE 50 MG TAB PO SCH ×2 (08:13→20:34)
[2016-05-30] MEDS: carBAMazepine 200 MG TAB PO SCH (08:13)
[2016-05-30] MEDS: guaiFENesin E.R. 600 MG TAB PO SCH ×2 (08:13→20:34)
[2016-05-30] MEDS: COLLAGENASE OINT 30 GM TUBE TOP SCH (08:14)
--- NOTE | 2016-05-30 08:34 | PD.CARD.PN ---
Subjective Subjective Remarks pt wants to be dnr, he and agree and want hospice care. Having refractory VT Objective Medications Administered Medications Medications (Trade) Dose Ordered Sig/Corey Route PRN Reason Start Time Stop Time Status Last Admin Dose Admin Oxybutynin Chloride (Ditropan) 5 mg DAILY PO 05/24/16 09:00 05/30/16 08:13 Trazodone HCl (Desyrel) 150 mg HS PO 05/23/16 21:00 05/29/16 19:56 IV Flush (NS Flush) 2 ml BID FLUSH 05/23/16 21:00 05/30/16 08:13 Acetaminophen (Tylenol) 650 mg Q4H PRN PO TEMP > 100.4 05/23/16 18:30 05/28/16 08:27 Ondansetron HCl (Zofran Inj) 4 mg Q6H PRN IVP NAUSEA OR VOMITING 05/23/16 18:30 05/23/16 20:04 Metoclopramide HCl (Reglan Inj) 5 mg Q6H PRN IV PUSH NAUSEA OR VOMITING 05/23/16 18:30 05/23/16 20:03 Docusate Sodium (Colace) 100 mg Q12H PO 05/23/16 18:30 05/30/16 05:44 Zolpidem Tartrate (Ambien) 5 mg HS PRN PO INSOMNIA 05/23/16 18:30 05/28/16 23:17 Enoxaparin Sodium (Lovenox Inj) 40 mg Q24H SQ 05/23/16 19:00 05/29/16 18:20 Acetaminophen/ Hydrocodone Bitart 15 ml 15 ml Q6H PRN PO PAIN 1-10 05/24/16 06:00 05/30/16 05:44 Cefazolin Sodium/ Dextrose (Ancef 2 Gm Premix) 50 ml @ 100 mls/hr Q8H IV 05/24/16 14:00 05/30/16 05:44 Levofloxacin (Levaquin) 750 mg DAILY@18 PO 05/25/16 18:00 05/29/16 17:21 Collagenase (Santyl Oint) 1 applic DAILY TOP 05/26/16 09:00 05/30/16 08:14 Carbamazepine (TEGretol) 200 mg DAILY PO 05/27/16 09:00 05/30/16 08:13 Pantoprazole Sodium (Protonix) 40 mg DAILY PO 05/27/16 09:00 05/30/16 08:12 Potassium Chloride (KCl) 10 meq DAILY PO 05/27/16 09:00 05/30/16 08:13 Guaifenesin (Mucinex Er) 600 mg BID PO 05/28/16 21:00 05/30/16 08:13 Methylprednisolone Sodium Succinate (SoluMEDROL INJ) 40 mg Q8HR IV PUSH 05/29/16 14:00 05/30/16 05:43 Amiodarone HCl (Cordarone) 400 mg BID PO 05/29/16 21:00 05/30/16 08:13 Metoprolol Tartrate (Lopressor) 100 mg BID PO 05/29/16 21:00 05/30/16 08:13 Metoprolol Tartrate 5 mg 5 mg Q6H PRN IV PUSH RAPID HEART RATE 05/29/16 14:15 05/29/16 21:13 Amiodarone HCl/ Dextrose (Cordarone Inj/ D5W ([place]) Inj) 250 ml @ 0 mls/hr CONTINUOUS IV 05/29/16 23:00 05/29/16 23:15 Vital Signs / I&O Vital Signs Date Time Temp Pulse Resp B/P Pulse Ox O2 Delivery O2 Flow Rate FiO2 05/30/16 07:30 98.1 124 18 124/79 97 05/30/16 06:00 70 05/30/16 05:00 56 05/30/16 04:39 97.4 62 136/77 97 05/30/16 04:00 56 05/30/16 03:00 64 05/30/16 02:00 70 05/30/16 01:00 70 05/30/16 00:00 126 05/30/16 00:00 97.8 125 119/87 97 05/29/16 23:45 99 Nasal Cannula 1.00 05/29/16 23:00 130 05/29/16 22:00 128 05/29/16 21:00 134 05/29/16 20:00 132 05/29/16 20:00 97.6 136 111/76 99 05/29/16 19:00 129 05/29/16 17:52 97.7 90 18 122/74 97 05/29/16 15:13 82 144/76 05/29/16 15:05 133 138/70 05/29/16 12:30 98.8 88 20 136/67 99 05/29/16 09:00 96 Nasal Cannula 2.00 05/29/16 08:45 97.4 82 20 122/70 99 I/O 05/29/16 05/29/16 05/29/16 05/30/16 05/30/16 05/30/16 07:00 15:00 23:00 07:00 15:00 23:00 Intake Total 120 ml 240 ml Balance 120 ml 240 ml Intake Oral 120 ml 240 ml # Voids 2 3 2 Physical Exam GENERAL: This is a well-nourished, well-developed patient, in no apparent distress. CARDIOVASCULAR: Rapid rate and rhythm without murmurs, gallops, or rubs. RESPIRATORY: Clear to auscultation. Breath sounds equal bilaterally. No wheezes , rales, or rhonchi. GASTROINTESTINAL: Abdomen soft, non-tender, nondistended. Normal active bowel sounds MUSCULOSKELETAL: Extremities without clubbing, cyanosis, or edema. NEURO: Alert & Oriented x4 to person, place, time, situation. Moves all ext x4 Laboratory Laboratory Tests Test 05/30/16 05:59 Sodium Level 142 MEQ/L Potassium Level 4.0 MEQ/L Chloride Level 109 MEQ/L Carbon Dioxide Level 23.0 MEQ/L Anion Gap 10 MEQ/L Blood Urea Nitrogen 16 MG/DL Creatinine 0.66 MG/DL Estimat Glomerular Filtration 118 ML/MIN Rate Random Glucose 134 MG/DL Calcium Level 8.3 MG/DL Phosphorus Level 2.9 MG/DL Magnesium Level 2.4 MG/DL Imaging Last Impressions Lower Extremity CT 05/25/16 0000 Signed Impressions: Service Date/Time: Wednesday, May 25, 2016 10:22 - CONCLUSION: 1. Diffuse subcutaneous edema. No abscess or convincing evidence of osteomyelitis. 2. Multifocal chronic arthropathy and chronic-appearing malalignment as above. There is mild arch collapse. Probably at least mild distal and insertional tendinosis of tibialis posterior tendon. The visualized portions of the tendon in the lower leg appear at least moderately attenuated. 3. Chronic appearing cystic changes within the distal fibula, most likely degenerative in etiology. 4. Shallow tunnellike tracks plantar aspects of the calcaneus and medial cuneiform, potentially degenerative or postoperative. 5. Diffuse vascular calcifications. Hira Davila MD Aorta w/Runoff CTA 05/25/16 0000 Signed Impressions: Service Date/Time: Wednesday, May 25, 2016 10:22 - CONCLUSION: 1. Severe bilateral infrapopliteal disease with no definite straight line runoff. There is potential short segment focal stenoses of significance involving the superficial femoral arteries bilaterally without segmental occlusion. 2. 4.1 cm infrarenal abdominal aortic aneurysm 3. Ectopic position of the right kidney. 4. Non-incarcerated abdominal wall hernia in the midline Juan Leal MD Foot X-Ray 05/24/16 0000 Signed Impressions: Service Date/Time: Tuesday, May 24, 2016 19:16 - CONCLUSION: Osteopenia, pes planus and other chronic findings as above. No fracture or acute bone destruction seen. Hira Davila MD Chest X-Ray 05/23/16 1531 Signed Impressions: Service Date/Time: Monday, May 23, 2016 15:42 - CONCLUSION: Interstitial prominence bilaterally of uncertain chronicity. Otherwise, no acute finding is identified. Hira Denny MD Head CT 05/23/16 0000 Signed Impressions: Service Date/Time: Monday, May 23, 2016 16:47 - CONCLUSION: 1. No acute intracranial abnormality is identified. There is generalized cerebral atrophy. 2. The periventricular white matter low attenuation and low density in the cricket may represent chronic microvascular ischemic change. 3. There is fluid within the mastoid air cells. Hira Denny MD Assessment and Plan Problem List: (1) VT (ventricular tachycardia) Assessment and Plan: slow/stable, AICD hasn't had to ATP or shock; on amio ggt (but he lost his access0 (2) Cellulitis of left leg (3) Sepsis (4) Delirium (5) AICD (automatic cardioverter/defibrillator) present Assessment and Plan pt wants comfort measures only, consulted hospice and palliative care, he wants to be DNR will be available as needed, please call with questions. Problem Qualifiers (1) Sepsis: Qualified Code: A41.9 - Sepsis, due to unspecified organism Ciro Manning MD May 30, 2016 08:34
[2016-05-30] MEDS: LEVOFLOXACIN 750 MG TAB PO SCH (16:04)
[2016-05-30] MEDS: MORPHINE SULFATE 4 MG/ML INJ IV PUSH PRN (16:04)
[2016-05-30] MEDS: ENOXAPARIN SODIUM 40 MG/0.4 ML SYRINGE SQ SCH (17:52)
[2016-05-30] MEDS: traZODone HCL 100 MG TAB PO SCH (20:34)
[2016-05-31] VITALS (15 sets, daily range): BP systolic 123–190; BP diastolic 77–103; PULSE 56–81; RESP 20–28; TEMP 97.8–98.8; O2SAT 95–100
[2016-05-31] MEDS: RESP: IPRATROPIUM 0.5 MG/2.5 ML NEB NEB SCH ×2 (03:15→07:37)
[2016-05-31] MEDS: MORPHINE SULFATE 4 MG/ML INJ IV PUSH PRN (04:51)
[2016-05-31] MEDS: DOCUSATE SODIUM 100 MG CAP PO SCH (05:14)
[2016-05-31] MEDS: methylPREDNISolone SOD SUCC 40 MG/1 ML VIAL IV PUSH SCH (05:14)
[2016-05-31] MEDS: ceFAZolin 2 GM PREMIX 50 ML IV SCH (05:14)
[2016-05-31] MEDS: RESP: BUDESONIDE 0.5 MG/2 ML NEB NEB SCH (07:37)
[2016-05-31] MEDS: AMIODARONE 200 MG TAB PO SCH (08:13)
[2016-05-31] MEDS: carBAMazepine 200 MG TAB PO SCH (08:13)
[2016-05-31] MEDS: OXYBUTYNIN CHLORIDE 5 MG TAB PO SCH (08:13)
[2016-05-31] MEDS: METOPROLOL TARTRATE 50 MG TAB PO SCH (08:13)
[2016-05-31] MEDS: guaiFENesin E.R. 600 MG TAB PO SCH (08:13)
[2016-05-31] MEDS: PANTOPRAZOLE SOD 40 MG DELAYED RELEASE TAB PO SCH (08:13)
[2016-05-31] MEDS: POTASSIUM CHLORIDE 10 MEQ CONTROLLED RELEASE TAB PO SCH (08:14)
[2016-05-31] MEDS: SODIUM CHLORIDE 0.9% FLUSH 5 ML FLUSH FLUSH SCH (08:14)
[2016-05-31] MEDS: COLLAGENASE OINT 30 GM TUBE TOP SCH (09:00)
[2016-05-31] MEDS: ACETAMINOPHEN 325MG/HYDROcodone 7.5MG/15ML UDC PO PRN (09:07)
[2016-05-31] MEDS ORDERED: RESP: ALBUTEROL 1.25 MG/3 ML NEB (PRN) NEB (09:30)
[2016-05-31] MEDS ORDERED: ALPRAZolam 0.25 MG TAB PO PRN (09:30)
[2016-05-31] MEDS ORDERED: POLYETHYLENE GLYCOL 17 GM PKG PO ONE (09:30)
--- NOTE | 2016-05-31 10:14 | PD.CONS ---
Consult Service Palliative Care Consult Requested By Dr. Jain Primary Care Physician Unknown Reason for Consultation a. To assist with evaluation and management of symptoms including:dyspnea and anxiety b. To assist medical decision maker(s) with: better understanding of current medical conditions; weighing benefits/burdens of medical treatment options; making medical treatment decisions. HPI History of Present Illness 75 year old patient with a past medical hx significant for Heart Disease, CAD s/ pMI, A. Fib, PVD, RA, Osteoarthritis, Lupus, HTN, Hiatal Hernia, Bladder cancer 2010, s/p radiation. Pt presented to the [facility] [place] on 05/23 due to altered mental status and increasing redness in his bilateraly extremities. In the ER pt was found to be febrile and tachcardic upon arrival, and suspicious for sepsis given left lower ext cellulitis. Pt in the ER was started on Vancomycin and Zosyn. CT of the head did not show intracranial abnormality, and CXR show interstital prominince but otherwise no acute findings. Pt was admitted to hospitalist services. * Hospitalist consulted wound care, ID, podiatry. Podiatry noted pt has bilateral dorsal contracture of 5th digit at MTP, and weeping lesion at 4th webspace surrounding erythema and edema. There is ulceration with necrotic eschar noted to dorsal L 4th digit. Podiatry ordered vascuclar consultation and evaluation. Podiarty recommend wound care. * Vascular came by and ordered CTA runoff. CTA runoff show sever PDA. Vascular feels "This is rather close to the bone and tissue between the ulcer is paperthin so either the cellulitis inflammation will resolve and defect will seal over and form a scab or less likely but possibly patient will get deeper infection and osteomyelitis. With this type of blood supply and in his physical condition if he gets osteomyelitis of the medial malleolus patient will end up with amputation..Therefore completely agree with antibiotic therapy .. I believe there is no surgical or endovascular therapy that could assist or help this patient." MRI did not show osteomyelitis. * ID recommend continue wound care, Ancef, zosyn and to follow cultures. * Pt had confusion and at one point needed to be montero acted to continue treatment. Susequently AMS improved. * Cardiology consulted 05/28 due to Nonsustained ventricular tachycardia. 140's slow/stable and AICD had not need to shock. Pt on metoporlol and amiodarone. * As course of hospitalization complicated by cellulitis, severe PVD, and arhthmias. Hospice was brought up. Pt is a DNR. Hospice was consulted and per medical chart note, pt and accepted hospice. Hospice admission nurse met with family, and they decline hospice offer and wished for aggressive treatment. * Palliative care was consulted to review goals of care. On my visit pt was visbly dyspneic even at rest. Pt is not getting any relief even with breathing treatment. he states they have not been working. I spoke with him about morphine and he was amenable to it. I had a talk with pt and , and they are amenable to hospice. They understand there is not much as that can be done, and that the risk of any operation may outweighns the benefits. Pt and the is amenable to get hospice back on board. Function/Cognitive Trajectory endorse it has been more and more challenging to take care of with dyspnea. Review of Systems ROS Limitations: Clinical Condition (very dyspneic) Constitutional: COMPLAINS OF: Fatigue, Generalized weakness Respiratory: COMPLAINS OF: Cough, Shortness of breath Psychiatric: COMPLAINS OF: Anxiety (anxious with dyspneic), Confusion (can get confused) Past Family Social History Coded Allergies: MRI PRECAUTION (Unverified Allergy, Unknown, DEFIRILLATOR, 05/24/16) [facility] [employer]DEL #[id number], SERIAL # [id number] Past Medical History RA and osteoporosis Hiatal Hernia CAD/OH, Atrial Fibrillation status post Defibrillator placement Hypertension Past Surgical History Bilateral Inguinal hernia repair Current Medications Medications (Trade) Dose Ordered Sig/Corey Route Start Time Stop Time Status Last Admin (Ditropan) 5 mg DAILY PO 05/24/16 09:00 05/31/16 08:13 (Desyrel) 150 mg HS PO 05/23/16 21:00 05/30/16 20:34 (NS Flush) 2 ml UNSCH PRN FLUSH 05/23/16 18:30 (NS Flush) 2 ml BID FLUSH 05/23/16 21:00 05/31/16 08:14 (Tylenol) 650 mg Q4H PRN PO 05/23/16 18:30 05/28/16 08:27 (Zofran Inj) 4 mg Q6H PRN IVP 05/23/16 18:30 05/23/16 20:04 (Reglan Inj) 5 mg Q6H PRN IV PUSH 05/23/16 18:30 05/23/16 20:03 (Dulcolax Supp) 10 mg DAILY PRN LA 05/23/16 18:30 05/31/16 08:13 (Colace) 100 mg Q12H PO 05/23/16 18:30 05/31/16 05:14 (Ambien) 5 mg HS PRN PO 05/23/16 18:30 05/28/16 23:17 (Lovenox Inj) 40 mg Q24H SQ 05/23/16 19:00 05/30/16 17:52 (Narcan Inj) 0.4 mg UNSCH PRN IV 05/23/16 18:30 (Pill Splitter) 1 ea UNSCH PRN OTHER 05/23/16 19:30 Acetaminophen/ Hydrocodone Bitart 15 ml 15 ml Q6H PRN PO 05/24/16 06:00 05/31/16 09:07 (Ancef 2 Gm Premix) 50 ml @ 100 mls/hr Q8H IV 05/24/16 14:00 05/31/16 05:14 (Levaquin) 750 mg DAILY@18 PO 05/25/16 18:00 05/30/16 16:04 (Santyl Oint) 1 applic DAILY TOP 05/26/16 09:00 05/31/16 09:00 (TEGretol) 200 mg DAILY PO 05/27/16 09:00 05/31/16 08:13 (Protonix) 40 mg DAILY PO 05/27/16 09:00 05/31/16 08:13 (KCl) 10 meq DAILY PO 05/27/16 09:00 05/31/16 08:14 (Mucinex Er) 600 mg BID PO 05/28/16 21:00 05/31/16 08:13 (Cordarone) 400 mg BID PO 05/29/16 21:00 05/31/16 08:13 (Lopressor) 100 mg BID PO 05/29/16 21:00 05/31/16 08:13 Metoprolol Tartrate 5 mg 5 mg Q6H PRN IV PUSH 05/29/16 14:15 05/29/16 21:13 (Cordarone Inj/ D5W ([place]) Inj) 250 ml @ 0 mls/hr CONTINUOUS IV 05/29/16 23:00 05/29/16 23:15 (Morphine Inj) 1 mg Q4HR PRN IV PUSH 05/30/16 12:00 05/31/16 04:51 (SoluMEDROL INJ) 60 mg Q6HR IV PUSH 05/31/16 12:00 (Xanax) 0.25 mg Q8H PRN PO 05/31/16 09:30 Family History Asked and denied Substance Use Tobacco: Alcohol: Prescription med abuse: Illicits: Psychosocial History Pt from [place]. [employer]. has one son in [facility]. Living Will: Never completed Health Care Surrogate: Never completed Durable Power of Portable Sawyer: Never completed Physical Exam Vital Signs Date Time Temp Pulse Resp B/P Pulse Ox O2 Delivery O2 Flow Rate FiO2 05/31/16 07:30 98.3 73 20 139/84 99 05/31/16 05:00 60 05/31/16 04:00 58 05/31/16 03:00 56 05/31/16 03:00 97.8 66 123/77 100 05/31/16 02:00 56 05/31/16 01:00 58 05/31/16 00:00 62 05/30/16 23:00 97.7 61 140/73 100 05/30/16 23:00 67 05/30/16 22:00 64 05/30/16 21:15 98 Nasal Cannula 1.00 05/30/16 21:00 72 05/30/16 20:00 70 05/30/16 19:00 76 05/30/16 19:00 98.3 74 138/78 100 05/30/16 16:00 98.1 68 18 148/88 98 05/30/16 11:00 98.4 60 18 117/70 98 05/30/16 05/31/16 19:00 07:00 Intake Total 1298 ml 720 ml Balance 1298 ml 720 ml Intake Oral 1200 ml 720 ml IV Total 98 ml # Voids 3 3 # Bowel Movements 0 Exam CONSTITUTIONAL/GENERAL: In distress using asccessory muscles to breath, visilby dyspneic SKIN: No jaundice, rashes, or lesions. Ecchymoses on upper extremities. lower ext multiple wounds leg ulcers. HEAD: Atraumatic. Normocephalic. EYES: Pupils equal and round and reactive. Extraocular motions intact. No scleral icterus. ENT: Hearing grossly normal. Nose without bleeding or purulent drainage. Throat without visible erythema, exudates, masses, or lesions. NECK: Trachea midline. Supple, nontender. No palpable thyroid enlargement or nodularity. CARDIOVASCULAR: tachycardiac, gallops, or rubs. No JVD. Peripheral pulses symmetric. RESPIRATORY/CHEST: Symmetric, labored breathing, poor inspiratory entry. GASTROINTESTINAL: Abdomen soft, non-tender, nondistended. GENITOURINARY: Without palpable bladder distension. Lopez catheter in place. MUSCULOSKELETAL: Extremities pvd, dressing on bilaterlly on the foot. LYMPHATICS: No palpable cervical or supraclavicular adenopathy. NEUROLOGICAL: Awake and alert. Motor and sensory grossly within normal limits. Follows commands. Cognitively sharp. Moves all extremities. PSYCHIATRIC: Anxious Diagnostic Tests Laboratory Laboratory Tests Test 05/30/16 05:59 Sodium Level 142 MEQ/L (136-145) Potassium Level 4.0 MEQ/L (3.5-5.1) Chloride Level 109 MEQ/L (98-107) Carbon Dioxide Level 23.0 MEQ/L (21.0-32.0) Anion Gap 10 MEQ/L (5-15) Blood Urea Nitrogen 16 MG/DL (7-18) Creatinine 0.66 MG/DL (0.60-1.30) Estimat Glomerular Filtration 118 ML/MIN Rate (>89) Random Glucose 134 MG/DL (74-106) Calcium Level 8.3 MG/DL (8.5-10.1) Phosphorus Level 2.9 MG/DL (2.5-4.9) Magnesium Level 2.4 MG/DL (1.5-2.5) Result Diagram: 05/28/16 0936 05/30/16 0559 Imaging Last Impressions Chest X-Ray 05/29/16 0000 Signed Impressions: Service Date/Time: Sunday, May 29, 2016 10:57 - CONCLUSION: Diffuse interstitial disease and more focal density in the perihilar regions and bases and bilateral effusions likely related to persistent pulmonary edema. Hira Carroll MD Lower Extremity CT 05/25/16 0000 Signed Impressions: Service Date/Time: Wednesday, May 25, 2016 10:22 - CONCLUSION: 1. Diffuse subcutaneous edema. No abscess or convincing evidence of osteomyelitis. 2. Multifocal chronic arthropathy and chronic-appearing malalignment as above. There is mild arch collapse. Probably at least mild distal and insertional tendinosis of tibialis posterior tendon. The visualized portions of the tendon in the lower leg appear at least moderately attenuated. 3. Chronic appearing cystic changes within the distal fibula, most likely degenerative in etiology. 4. Shallow tunnellike tracks plantar aspects of the calcaneus and medial cuneiform, potentially degenerative or postoperative. 5. Diffuse vascular calcifications. Hira Davila MD Aorta w/Runoff CTA 05/25/16 0000 Signed Impressions: Service Date/Time: Wednesday, May 25, 2016 10:22 - CONCLUSION: 1. Severe bilateral infrapopliteal disease with no definite straight line runoff. There is potential short segment focal stenoses of significance involving the superficial femoral arteries bilaterally without segmental occlusion. 2. 4.1 cm infrarenal abdominal aortic aneurysm 3. Ectopic position of the right kidney. 4. Non-incarcerated abdominal wall hernia in the midline Juan Leal MD Foot X-Ray 05/24/16 0000 Signed Impressions: Service Date/Time: Tuesday, May 24, 2016 19:16 - CONCLUSION: Osteopenia, pes planus and other chronic findings as above. No fracture or acute bone destruction seen. Hira Davila MD Head CT 05/23/16 0000 Signed Impressions: Service Date/Time: Monday, May 23, 2016 16:47 - CONCLUSION: 1. No acute intracranial abnormality is identified. There is generalized cerebral atrophy. 2. The periventricular white matter low attenuation and low density in the cricket may represent chronic microvascular ischemic change. 3. There is fluid within the mastoid air cells. Hira Denny MD Patient/Family Conference Present at Family Conference: pt and pt's Family Conference Time (mins): 30 Family Conference Location: Bedside Issues Discussed: * Palliative care role, purpose, approach * Additional medical, psychosocial, and spiritual history * Patients general health, functional status, and cognitive changes in the months leading up to the current hospitalization * Patient/family understanding of the current medical problems * Patient/family understanding of prognosis * Patients goals of care as best understood from advance directives and/or conversations and/or values * Current medical treatment options and benefits/burdens of those options * Likely scenarios comparing ongoing aggressive care with a transition to comfort measures only * Questions answered to the best of my ability * Palliative care contact information provided Assessment and Plan Disease Oriented Problem List: (1) Anemia (2) Sepsis (3) Cellulitis of left leg (4) Delirium (5) VT (ventricular tachycardia) (6) AAA (abdominal aortic aneurysm) Symptom Scale: (1) Dyspnea 0-10 Scale: 10 (2) Anxiety 0-10 Scale: Unable to quantify Pertinent Non-Medical Issues Psychosocial: Spiritual: Legal: Ethical issues impacting care: Important Contacts [place] Prognosis 75 year old with hospitalized, and health complicated by VT, PVD (not surgical candidate), sepsis, lower ext cellulitis. Pt extremly dyspneic. Pt endorses DNR and is hospice appropriate. Evaluated by cardiology consulted hospice initially. Code Status: No Code Plan ==code== DNR == Pt amenable to completing and signing paperwork for hospice. Knows he is declining, and that there is nothing else further to do. Amenable to transfer to the care center and manage dyspnea. == Proxy is . == Reviewed the use of morphine and ativan for dyspnea for patient. He was ameanble for me to give a dose in the hospital. Morphine and ativan is given for dyspnea and anxiety. Pt noted nebs were not working and refused nebs yesterday. == see pt declining and understand has possiblity of continue to decline and pass in the care center. She will notify children. Decline karson at this time, just want to be comfortable. == I called hospice and they will come back to admit patient and transfer to care center. Thank you for the opportunity to participate in the care of Mr. Cody. Rudy Casillas MD May 31, 2016 10:14
--- NOTE | 2016-05-31 10:24 | HHI.PR ---
Subjective Remarks f/u with multiple issues. patient stated that he does not want to be hospice. He stated he wants to get better here so he can go home with . patient stated he has SOB due to his anxiety and asking for medication for anxiety. Denied cough. patient thinks SOB of breathing due to anxiety. He stated he had no sleep. Otherwise no other issues. Objective Vitals Vital Signs Date Time Temp Pulse Resp B/P Pulse Ox O2 Delivery O2 Flow Rate FiO2 05/31/16 07:30 98.3 73 20 139/84 99 05/31/16 05:00 60 05/31/16 04:00 58 05/31/16 03:00 56 05/31/16 03:00 97.8 66 123/77 100 05/31/16 02:00 56 05/31/16 01:00 58 05/31/16 00:00 62 05/30/16 23:00 97.7 61 140/73 100 05/30/16 23:00 67 05/30/16 22:00 64 05/30/16 21:15 98 Nasal Cannula 1.00 05/30/16 21:00 72 05/30/16 20:00 70 05/30/16 19:00 76 05/30/16 19:00 98.3 74 138/78 100 05/30/16 16:00 98.1 68 18 148/88 98 05/30/16 11:00 98.4 60 18 117/70 98 I/O 05/30/16 05/30/16 05/30/16 05/31/16 05/31/16 05/31/16 07:00 15:00 23:00 07:00 15:00 23:00 Intake Total 120 ml 1200 ml 98 ml 720 ml Balance 120 ml 1200 ml 98 ml 720 ml Intake Oral 120 ml 1200 ml 720 ml IV Total 98 ml # Voids 2 2 1 3 # Bowel Movements 0 Result Diagram: 05/28/16 0936 05/30/16 0559 Objective Remarks GENERAL: in mild resp distress CARDIOVASCULAR: irregular rate and irregular rhythm without murmurs, gallops, or rubs. RESPIRATORY: diffuse B/L exp wheezing with increase WOB. GASTROINTESTINAL: Abdomen soft, non-tender, nondistended. MSK: LE B/L in feet in bandages. Medications and IVs Current Medications Piperacillin Sod/ Tazobactam Sod 100 ml @ 200 mls/hr ONCE STAT IV Last administered on 05/23/16 17:32; Start 05/23/16 at 15:31; Stop 05/23/16 at 16:00; Status DC Vancomycin HCl 1000 mg/Sodium Chloride 250 ml @ 250 mls/hr ONCE STAT IV Last administered on 05/23/16 17:33; Start 05/23/16 at 15:31; Stop 05/23/16 at 16:30; Status DC Sodium Chloride 1,000 ml @ 1,000 mls/hr Q1H ONCE IV Last administered on 17:33; Start 05/23/16 at 15:41; Stop 05/23/16 at 16:40; Status DC Sodium Chloride 1,000 ml @ 1,000 mls/hr Q1H ONCE IV Last administered on 17:34; Start 05/23/16 at 15:41; Stop 05/23/16 at 16:40; Status DC Sodium Chloride (NS 1000 ml Inj) 400 ml @ 1,000 mls/hr Q24M ONCE IV Last administered on 05/23/16 17:34; Start 05/23/16 at 15:41; Stop 05/23/16 at 16:04; Status DC Acetaminophen (Tylenol) 1,000 mg ONCE ONCE PO Last administered on 05/23/16 16 :31; Start 05/23/16 at 16:00; Stop 05/23/16 at 16:01; Status DC Morphine Sulfate (Morphine Inj) 2 mg ONCE ONCE IV PUSH Last administered on 18:43; Start 05/23/16 at 18:00; Stop 05/23/16 at 18:01; Status DC Oxybutynin Chloride (Ditropan) 5 mg DAILY PO Last administered on 05/31/16 08: 13; Start 05/24/16 at 09:00 Acetaminophen/ Hydrocodone Bitart (Hycet 325-7.5 Mg Liq) 1 ml Q6H PRN PO PAIN 1 -10 Last administered on 05/23/16 20:24; Start 05/23/16 at 19:00; Stop 05/24/16 at 05:32; Status DC Pantoprazole Sodium (Protonix) 20 mg DAILY PO Last administered on 05/26/16 08: 24; Start 05/24/16 at 09:00; Stop 05/26/16 at 22:59; Status DC Trazodone HCl 150 mg 150 mg HS PO Last administered on 05/30/16 20:34; Start 05/23/16 at 21:00 Sodium Chloride (NS 1000 ml Inj) 1,000 ml @ 42 mls/hr [id number] IV Last administered on 05/28/16 20:06; Start 05/23/16 at 18:28; Stop 05/29/16 at 11:25 ; Status DC IV Flush (NS Flush) 2 ml UNSCH PRN FLUSH FLUSH AFTER USING IV ACCESS; Start 05/23/16 at 18:30 IV Flush (NS Flush) 2 ml BID FLUSH Last administered on 05/31/16 08:14; Start 05/23/16 at 21:00 Acetaminophen (Tylenol) 650 mg Q4H PRN PO TEMP > 100.4 Last administered on 08:27; Start 05/23/16 at 18:30 Ondansetron HCl (Zofran Inj) 4 mg Q6H PRN IVP NAUSEA OR VOMITING Last administered on 05/23/16 20:04; Start 05/23/16 at 18:30 Metoclopramide HCl (Reglan Inj) 5 mg Q6H PRN IV PUSH NAUSEA OR VOMITING Last administered on 05/23/16 20:03; Start 05/23/16 at 18:30 Bisacodyl (Dulcolax Supp) 10 mg DAILY PRN [place] CONSTIPATION Last administered on 05/31/16 08:13; Start 05/23/16 at 18:30 Docusate Sodium (Colace) 100 mg Q12H PO Last administered on 05/31/16 05:14; Start 05/23/16 at 18:30 Zolpidem Tartrate (Ambien) 5 mg HS PRN PO INSOMNIA Last administered on 23:17; Start 05/23/16 at 18:30 Enoxaparin Sodium (Lovenox Inj) 40 mg Q24H SQ Last administered on 05/30/16 17 :52; Start 05/23/16 at 19:00 Naloxone HCl 0.4 mg 0.4 mg UNSCH PRN IV SEE LABEL COMMENTS; Start 05/23/16 at 18 :30 Pharmacy Profile Note 0 ml @ 0 mls/hr UNSCH OTHER ; Start 05/23/16 at 18:45; Stop 05/24/16 at 13:33; Status DC Piperacillin Sod/ Tazobactam Sod (Zosyn 3.375 Gm Premix) 50 ml @ 100 mls/hr Q6H IV ; Start 05/23/16 at 18:45; Stop 05/23/16 at 19:20; Status DC Miscellaneous 1 ea 1 ea UNSCH PRN OTHER SEE LABEL COMMENTS; Start 05/23/16 at 19 :30 Piperacillin Sod/ Tazobactam Sod 50 ml @ 100 mls/hr Q6H IV Last administered on 05/25/16 11:22; Start 05/23/16 at 23:00; Stop 05/25/16 at 16:56; Status DC Vancomycin HCl 1250 mg/Sodium Chloride 262.5 ml @ 250 mls/hr Q12H IV ; Start at 21:00; Stop 05/23/16 at 21:00; Status DC Vancomycin HCl/ Sodium Chloride (Vancomycin Inj/ NS 250 ml Inj) 262.5 ml @ 250 mls/hr Q12H IV Last administered on 05/24/16 05:02; Start 05/24/16 at 05:00; Stop 05/24/16 at 13:33; Status DC Acetaminophen/ Hydrocodone Bitart 15 ml 15 ml Q6H PRN PO PAIN 1-10 Last administered on 05/31/16 09:07; Start 05/24/16 at 06:00 Cefazolin Sodium/ Dextrose (Ancef 2 Gm Premix) 50 ml @ 100 mls/hr Q8H IV Last administered on 05/31/16 05:14; Start 05/24/16 at 14:00 Potassium Chloride (KCl) 40 meq ONCE ONCE PO Last administered on 05/25/16 09: 05; Start 05/25/16 at 07:45; Stop 05/25/16 at 07:51; Status DC Iohexol (Omnipaque 350 Inj) 100 ml STK-MED ONCE IV Last administered on 10:53; Start 05/25/16 at 10:53; Stop 05/25/16 at 10:54; Status DC Levofloxacin (Levaquin) 750 mg DAILY@18 PO Last administered on 05/30/16 16:04 ; Start 05/25/16 at 18:00 Chlorhexidine Gluconate (Hibiclens 4% Top Soln) 1 applic [employer]ERSON[employer] ONCE TOPICAL ; Start 05/25/16 at 18:15; Stop 05/25/16 at 18:16; Status DC Collagenase 1 applic 1 applic DAILY TOP Last administered on 05/31/16 09:00; Start 05/26/16 at 09:00 Potassium Chloride 100 ml @ 50 mls/hr Q2H IV Last administered on 05/26/16 11: 36; Start 05/26/16 at 07:45; Stop 05/26/16 at 11:44; Status DC Potassium Phosphate/Sodium Chloride (Potassium Phosphate Inj/NS Inj) 155 ml @ 38.75 mls/ hr ONCE ONCE IV Last administered on 05/26/16 17:51; Start 05/26/16 at 15:00; Stop 05/26/16 at 18:59; Status DC Amiodarone HCl (Cordarone) 200 mg BID PO Last administered on 05/29/16 08:45; Start 05/26/16 at 23:00; Stop 05/29/16 at 14:15; Status DC Carbamazepine (TEGretol) 200 mg DAILY PO Last administered on 05/31/16 08:13; Start 05/27/16 at 09:00 Hydroxychloroquine Sulfate (Plaquenil) 200 mg BIDPC PO ; Start 05/27/16 at 09:00 ; Stop 05/27/16 at 09:00; Status DC Metoprolol Tartrate (Lopressor) 50 mg BID PO Last administered on 05/29/16 08: 45; Start 05/26/16 at 23:00; Stop 05/29/16 at 14:15; Status DC Pantoprazole Sodium (Protonix) 40 mg DAILY PO Last administered on 05/31/16 08 :13; Start 05/27/16 at 09:00 Potassium Chloride (KCl) 10 meq DAILY PO Last administered on 05/31/16 08:14; Start 05/27/16 at 09:00 Quetiapine Fumarate (SEROquel) 100 mg HS PO ; Start 05/26/16 at 23:00; Stop at 23:00; Status DC Trazodone HCl 400 mg 400 mg HS PO ; Start 05/26/16 at 23:00; Stop 05/26/16 at 23: 00; Status DC Potassium Chloride 100 ml @ 50 mls/hr Q2H IV Last administered on 05/27/16 16 :02; Start 05/27/16 at 11:00; Stop 05/27/16 at 14:59; Status DC Potassium Phosphate/Sodium Chloride (Potassium Phosphate Inj/NS Inj) 155 ml @ 38.75 mls/ hr ONCE ONCE IV Last administered on 05/27/16 17:43; Start at 11:00; Stop 05/27/16 at 14:59; Status DC Metoprolol Tartrate (Lopressor Inj) 5 mg ONCE ONCE IV PUSH ; Start 05/27/16 at 17:00; Stop 05/27/16 at 17:02; Status DC Metoprolol Tartrate (Lopressor Inj) 2.5 mg ONCE ONCE IV PUSH Last administered on 05/27/16 17:12; Start 05/27/16 at 17:15; Stop 05/27/16 at 17:16 ; Status DC Metoprolol Tartrate (Lopressor Inj) 2.5 mg ONCE ONCE IV PUSH Last administered on 05/28/16 10:53; Start 05/28/16 at 10:00; Stop 05/28/16 at 10:01 ; Status DC Lidocaine HCl (Xylocaine 2% Inj) 20 ml ONCE ONCE INFIL ; Start 05/28/16 at 12: 00; Stop 05/28/16 at 12:01; Status DC Albuterol/ Ipratropium (Duoneb Neb) 1 ampule Q6HR NEB NEB Last administered on 05/28/16 18:37; Start 05/28/16 at 16:15; Stop 05/29/16 at 11:26; Status DC Guaifenesin (Mucinex Er) 600 mg BID PO Last administered on 05/31/16 08:13; Start 05/28/16 at 21:00 Budesonide (Pulmicort Respule Neb) 0.5 mg Q12HR NEB NEB Last administered on 21:09; Start 05/28/16 at 20:00 Metoprolol Tartrate (Lopressor Inj) 5 mg ONCE ONCE IV PUSH Last administered on 05/29/16 00:54; Start 05/29/16 at 00:45; Stop 05/29/16 at 00:46; Status DC Metoprolol Tartrate (Lopressor Inj) 5 mg ONCE ONCE IV PUSH Last administered on 05/29/16 05:23; Start 05/29/16 at 05:15; Stop 05/29/16 at 05:16; Status DC Methylprednisolone Sodium Succinate (SoluMEDROL INJ) 40 mg Q8HR IV PUSH Last administered on 05/31/16 05:14; Start 05/29/16 at 14:00; Stop 05/31/16 at 09:31 ; Status DC Ipratropium Starlight (Atrovent Neb) 0.5 mg Q4HR NEB NEB Last administered on 21:09; Start 05/29/16 at 12:00; Stop 05/31/16 at 09:43; Status DC Metoprolol Tartrate (Lopressor Inj) 5 mg STK-MED ONCE .ROUTE ; Start 05/29/16 at 13:50; Stop 05/29/16 at 13:51; Status DC Amiodarone HCl (Cordarone) 400 mg BID PO Last administered on 05/31/16 08:13; Start 05/29/16 at 21:00 Metoprolol Tartrate (Lopressor) 100 mg BID PO Last administered on 05/31/16 08 :13; Start 05/29/16 at 21:00 Metoprolol Tartrate 5 mg 5 mg Q6H PRN IV PUSH RAPID HEART RATE Last administered on 05/29/16 21:13; Start 05/29/16 at 14:15 Amiodarone HCl 150 mg/Dextrose 100 ml @ 600 mls/hr NOW ONCE IV Last administered on 05/29/16 23:15; Start 05/29/16 at 23:00; Stop 05/29/16 at 23:09 ; Status DC Amiodarone HCl/ Dextrose (Cordarone Inj/ D5W ([place]) Inj) 250 ml @ 0 mls/hr CONTINUOUS IV Last administered on 05/29/16 23:15; Start 05/29/16 at 23:00 Morphine Sulfate (Morphine Inj) 1 mg Q4HR PRN IV PUSH BREAKTHROUGH PAIN Last administered on 05/31/16 04:51; Start 05/30/16 at 12:00 Methylprednisolone Sodium Succinate (SoluMEDROL INJ) 60 mg Q6HR IV PUSH ; Start 05/31/16 at 12:00 Albuterol/ Ipratropium (Duoneb Neb) 1 ampule Q4HR NEB NEB ; Start 05/31/16 at 12:00 Albuterol Sulfate (Albuterol Neb) 1.25 mg Q6HR NEB PRN NEB WHEEZING; Start at 09:30 Alprazolam (Xanax) 0.25 mg Q8H PRN PO anxiety; Start 05/31/16 at 09:30 Polyethylene Glycol (Miralax) 17 gm ONCE ONCE PO ; Start 05/31/16 at 09:30; Stop 05/31/16 at 09:37; Status DC A/P Assessment and Plan Acute Toxic Metabolic Encephalopathy secondary to Sepsis and cellulitis -patient seemed to be at her baseline. -see treatment as below. Acute respiratory failure -patient has diffused wheezing and increase WOB. -increase solumedrol to 60 mg IV Q6H. -scheduled duonebs and albuerol PRN. Bilateral Leg Cellulitis initially on Cefazolin and Zosyn - blood cultures negative, and wound culture positive for Proteus Mirabilis pansensitive, MRI did not found Osteomyelitis -patient seen by Vascular specialist found Severe PAD on CTA with runoff no further surgical treatment. -per ID recommended patient on Levaquin by mouth and continue Cefazolin, -Podiatry specialist will attempt to perform an I and D at bedside. -continue with current treatment now. Sepsis afebrile, tachycardia, Leukocytosis. -see treatment as above. - okay to discharge on Keflex and Levaquin as Per ID specialist. Atrial Fibrillation status post AICD not on anticoagulation. -had since yesterday NSVT given initially given Metoprolol by mouth and IV, then increased dosages of Amiodarone by Cardiology Refractory Ventricular Tachycardia -on amiodarone. -Investor Relations Specialist ff CAD by history/Osteoporosis -home regimen restarted. Anxiety -xanax DVT prophylaxis with Lovenox Discharge Planning patient does not want to be hospice. continue with medical management. he has respiratory distress and is on IV antibiotics. Aide Chappell MD May 31, 2016 10:24
[2016-05-31] MEDS ORDERED: MORPHINE SULFATE 4 MG/ML INJ IV PUSH ONE (11:45)
[2016-05-31] MEDS ORDERED: RESP: ALBUTEROL 2.5 MG/IPRATROPIUM 0.5 MG NEB (SCH) NEB (12:00)
[2016-05-31] MEDS ORDERED: methylPREDNISolone SOD SUCC 125 MG/2 ML VIAL IV PUSH SCH (12:00)
--- NOTE | 2016-05-31 12:29 | HHI.DS ---
Discharge Summary Admission Date May 23, 2016 at 18:22 Discharge Date: May 31, 2016 Admitting Diagnosis sepsis, left leg cellulitis, AMS, anemia (1) Cellulitis of left leg ICD Code: L03.116 (2) Sepsis ICD Code: A41.9 Diagnosis: Principal (3) VT (ventricular tachycardia) ICD Code: I47.2 Diagnosis: Principal (4) Metabolic encephalopathy ICD Code: G93.41 Diagnosis: Principal (5) Acute respiratory failure ICD Code: J96.00 Diagnosis: Principal (6) AAA (abdominal aortic aneurysm) ICD Code: I71.4 Diagnosis: Secondary (7) Anxiety ICD Code: F41.9 Diagnosis: Secondary Procedures see hospital course. Brief History - From Admission This is a pleasant 75 y/o male with CAD with AICD placement, Atrial Fibrillation , who came to ER with Altered Mental status, with the patient at this time but he is alert and oriented, during the last 72 hours he is been worsening his condition, his noted that the redness of the bilateral lower extremities around his toes patient refused transport was montero acted, he is been also febrile as we know he has RA, Osteoporosis, CAD status post [place], Atrial Fibrillation, Defibrillator in place, seen in the presence of his Mrs. Von Cody, will ask for Wound care, ID specialist, follow blood culture continue antibiotics. CBC/BMP: 05/28/16 0936 05/30/16 0559 Significant Findings Laboratory Tests Test 05/30/16 05:59 Chloride Level 109 MEQ/L (98-107) Random Glucose 134 MG/DL (74-106) Calcium Level 8.3 MG/DL (8.5-10.1) Imaging Last Impressions Chest X-Ray 05/29/16 0000 Signed Impressions: Service Date/Time: Sunday, May 29, 2016 10:57 - CONCLUSION: Diffuse interstitial disease and more focal density in the perihilar regions and bases and bilateral effusions likely related to persistent pulmonary edema. Hira Carroll MD Lower Extremity CT 05/25/16 0000 Signed Impressions: Service Date/Time: Wednesday, May 25, 2016 10:22 - CONCLUSION: 1. Diffuse subcutaneous edema. No abscess or convincing evidence of osteomyelitis. 2. Multifocal chronic arthropathy and chronic-appearing malalignment as above. There is mild arch collapse. Probably at least mild distal and insertional tendinosis of tibialis posterior tendon. The visualized portions of the tendon in the lower leg appear at least moderately attenuated. 3. Chronic appearing cystic changes within the distal fibula, most likely degenerative in etiology. 4. Shallow tunnellike tracks plantar aspects of the calcaneus and medial cuneiform, potentially degenerative or postoperative. 5. Diffuse vascular calcifications. Hira Davila MD Aorta w/Runoff CTA 05/25/16 0000 Signed Impressions: Service Date/Time: Wednesday, May 25, 2016 10:22 - CONCLUSION: 1. Severe bilateral infrapopliteal disease with no definite straight line runoff. There is potential short segment focal stenoses of significance involving the superficial femoral arteries bilaterally without segmental occlusion. 2. 4.1 cm infrarenal abdominal aortic aneurysm 3. Ectopic position of the right kidney. 4. Non-incarcerated abdominal wall hernia in the midline Juan Leal MD Foot X-Ray 05/24/16 0000 Signed Impressions: Service Date/Time: Tuesday, May 24, 2016 19:16 - CONCLUSION: Osteopenia, pes planus and other chronic findings as above. No fracture or acute bone destruction seen. Hira Davila MD Head CT 05/23/16 0000 Signed Impressions: Service Date/Time: Monday, May 23, 2016 16:47 - CONCLUSION: 1. No acute intracranial abnormality is identified. There is generalized cerebral atrophy. 2. The periventricular white matter low attenuation and low density in the cricket may represent chronic microvascular ischemic change. 3. There is fluid within the mastoid air cells. Hira Denny MD PE at Discharge GENERAL: in mild resp distress CARDIOVASCULAR: irregular rate and irregular rhythm without murmurs, gallops, or rubs. RESPIRATORY: diffuse B/L exp wheezing with increase WOB. GASTROINTESTINAL: Abdomen soft, non-tender, nondistended. MSK: LE B/L in feet in bandages. Pt update on day of discharge patient initially change his mind and did not want to be hospice, but he was later seen by palliative care in which he stated he would like to be hospice. Hospital Course Acute Toxic Metabolic Encephalopathy secondary to Sepsis and cellulitis -due to illness as below. -improved throughout hospital course and on day of discharge he was at his baselie. -see treatment as below. Acute respiratory failure -patient has diffused wheezing and increase WOB. -he was on solumedrol -scheduled duonebs and albuerol PRN. Bilateral Leg Cellulitis initially on Cefazolin and Zosyn - blood cultures negative, and wound culture positive for Proteus Mirabilis pansensitive, MRI did not found Osteomyelitis -patient seen by Vascular specialist found Severe PAD on CTA with runoff no further surgical treatment. -per ID recommended patient on Levaquin by mouth and continue Cefazolin, -Podiatry specialist will attempt to perform an I and D at bedside but was not perform since patient on discharge was hospice.. -continue with current treatment now. Sepsis afebrile, tachycardia, Leukocytosis. -see treatment as above. - okay to discharge on Keflex and Levaquin as Per ID specialist. Atrial Fibrillation status post AICD not on anticoagulation. -developed NSVT given initially given Metoprolol by mouth and IV, then increased dosages of Amiodarone by Cardiology Refractory Ventricular Tachycardia -on amiodarone. -Mortgage Loan Interviewer ff CAD by history/Osteoporosis -home regimen restarted. Anxiety -xanax Pt Condition on Discharge: Deteriorating Discharge Disposition: Hospice/Med Facility Discharge Time: <= 30 minutes Discharge Instructions DIET: Follow Instructions for: As Tolerated, No Restrictions Activities you can perform: Regular-No Restrictions Aide Chappell MD May 31, 2016 12:29
[2016-05-31] MEDS ORDERED: MORPHINE SULFATE 4 MG/ML INJ IV PRN (12:30)
[2016-05-31] MEDS ORDERED: LORazepam 2 MG/ML VIAL IV PRN ×2 (13:00)
[2016-05-31] MEDS ORDERED: MORPHINE SULFATE 8 MG/ML INJ IV PUSH PRN (13:00)
== END 2016-05-31 14:43 | disposition hospice, inpatient (51) | DRG 871 ==
LOC: NEPA 14:25 → NEDA 18:22 → NEDH 05-24 01:01 → NEPGCP 05-24 10:15 → N04B 05-28 06:49 → HCIS 05-29 17:50
PROVIDERS: ADMIT Family Medicine; ATTEND Family Medicine
DX: A41.9 Sepsis, unspecified organism (principal); G92 Toxic encephalopathy; J96.00 Acute respiratory failure, unspecified whether with hypoxia or hypercapnia; I47.2 Ventricular tachycardia; L03.115 Cellulitis of right lower limb; L97.329 Non-pressure chronic ulcer of left ankle with unspecified severity; L03.116 Cellulitis of left lower limb; L97.529 Non-pressure chronic ulcer of other part of left foot with unspecified severity; B96.4 Proteus (mirabilis) (morganii) as the cause of diseases classified elsewhere; J44.1 Chronic obstructive pulmonary disease with (acute) exacerbation; I48.2 Chronic atrial fibrillation; Z95.810 Presence of automatic (implantable) cardiac defibrillator; Z87.891 Personal history of nicotine dependence; I25.10 Atherosclerotic heart disease of native coronary artery without angina pectoris; I25.2 Old myocardial infarction; I73.9 Peripheral vascular disease, unspecified; I89.1 Lymphangitis; M81.0 Age-related osteoporosis without current pathological fracture; M06.9 Rheumatoid arthritis, unspecified; Z79.52 Long term (current) use of systemic steroids; I10 Essential (primary) hypertension; K44.9 Diaphragmatic hernia without obstruction or gangrene; K43.9 Ventral hernia without obstruction or gangrene; Z66 Do not resuscitate; Z51.5 Encounter for palliative care; D64.9 Anemia, unspecified; I71.4 Abdominal aortic aneurysm, without rupture; F41.9 Anxiety disorder, unspecified; E87.6 Hypokalemia; E83.39 Other disorders of phosphorus metabolism; Z85.51 Personal history of malignant neoplasm of bladder; Z92.3 Personal history of irradiation
CPT/HCPCS: 70450; 71010; 71020; 73630; 73701; 75635; 76937; 80048; 80053; 80061; 80076; 81001; 83036; 83605; 83690; 83735; 84100; 84132; 84155; 84439; 84443; 84484; 85007; 85025; 85027; 85610; 86850; 86900; 86901; 87040; 87070; 87077; 87186; 93005; 94150; 94640; 94664; 96365; 96368; J0282; J0690; J1650; J2060; J2270; J2405; J2543; J2765; J2920; J2930; J3370; J3480; J7030; J7050; J7060; J7626; J7644; Q9967